=== PATIENT | male | born 1950 | race African-American/Black ===

== ENCOUNTER → 2016-05-26 | Outpatient (CLI) | payer MEDICARE, OTHER ==
[2016-05-26 13:00] LABS: ABSOLUTE EOSINOPHILS # (AUTO) 0.1 10^3/uL (0.0-0.6); ABSOLUTE LYMPHOCYTES (AUTO) 2.1 10^3/uL (0.5-4.7); ABSOLUTE MONOCYTES (AUTO) 0.3 10^3/uL (0.1-1.4); ABSOLUTE NEUT (AUTO) 3.6 10^3/uL (1.7-8.2); BASOPHILS % (AUTO) 0.5 % (0-2); EOSINOPHILS % (AUTO) 1.3 % (0-6); HEMOGLOBIN 12.1 g/dL (13.5-17.0); HGB HCT DIFFERENCE -0.7; LYMPHOCYTES % (AUTO) 33.7 % (13-45); MEAN CORPUSCULAR HEMOGLOBIN 26.6 pg (27.0-33.4); MEAN CORPUSCULAR HGB CONC 32.8 g/dL (32.0-36.0); MEAN CORPUSCULAR VOLUME 81 fl (80-97); MONOCYTES % (AUTO) 5.5 % (3-13); RED BLOOD COUNT 4.55 10^6/uL (4.35-5.55); RED CELL DISTRIBUTION WIDTH 15.6 % (11.5-14.0); WHITE BLOOD COUNT 6.1 10^3/uL (4.0-10.5)
[2016-05-26 13:11] LABS: ALANINE AMINOTRANSFERASE 36 U/L (21-72); ALBUMIN 4.1 g/dL (3.5-5.0); ALKALINE PHOSPHATASE 82 U/L (38-126); ANION GAP 14 (5-19); ASPARTATE AMINO TRANSFERASE 26 U/L (17-59); BILIRUBIN,DIRECT 0.3 mg/dL (0.0-0.4); BILIRUBIN,TOTAL 0.5 mg/dL (0.2-1.3); BLOOD UREA NITROGEN 19 mg/dL (7-20); CARBON DIOXIDE 24 mmol/L (22-30); CHLORIDE 109 mmol/L (98-107); CHOLESTEROL 149.61 mg/dL (0-200); CREATININE RESULT 1.54 mg/dL (0.52-1.25); Direct HDL 47 mg/dL (>40); GLUCOSE 92 mg/dL (75-110); POTASSIUM 3.7 mmol/L (3.6-5.0); TRIGLYCERIDES 78 mg/dL (<150)
[2016-05-26 13:22] LABS: DIRECT LDL 69 mg/dL (<100)
== END ==
LOC: OD 11:19
PROVIDERS: ATTEND Internal Medicine
DX: E11.9 Type 2 diabetes mellitus without complications (principal); I12.9 Hypertensive chronic kidney disease with stage 1 through stage 4 chronic kidney disease, or unspecified chronic kidney disease; N18.9 Chronic kidney disease, unspecified; R35.1 Nocturia
CPT/HCPCS: 36415; 80053; 80061; 82043; 83036; 84153; 84443; 85025

== ENCOUNTER → 2016-06-11 | Outpatient (CLI) | payer MEDICARE, OTHER ==
[2016-06-11 09:57] LABS: HEMATOCRIT 37.2 % (37.9-51.0); HEMOGLOBIN 12.1 g/dL (13.5-17.0); HGB HCT DIFFERENCE -0.9; MEAN CORPUSCULAR HEMOGLOBIN 26.6 pg (27.0-33.4); MEAN CORPUSCULAR HGB CONC 32.5 g/dL (32.0-36.0); MEAN CORPUSCULAR VOLUME 82 fl (80-97); RED BLOOD COUNT 4.55 10^6/uL (4.35-5.55); RED CELL DISTRIBUTION WIDTH 16.2 % (11.5-14.0); WHITE BLOOD COUNT 5.7 10^3/uL (4.0-10.5)
[2016-06-11 10:08] LABS: APPEARANCE,URINE CLEAR; BILIRUBIN,URINE NEGATIVE (NEGATIVE); GLUCOSE, URINE NEGATIVE (NEGATIVE); KETONES,URINE NEGATIVE (NEGATIVE); LEUKOCYTE ESTERASE,URINE NEGATIVE (NEGATIVE); NITRITE,URINE NEGATIVE (NEGATIVE); PROTEIN,URINE 100 mg/dL (NEGATIVE); URINE SPECIFIC GRAVITY 1.013; UROBILINOGEN,URINE NEGATIVE mg/dL (<2.0)
[2016-06-11 10:23] LABS: ANION GAP 13 (5-19); BLOOD UREA NITROGEN 20 mg/dL (7-20); CALCIUM 9.3 mg/dL (8.4-10.2); CARBON DIOXIDE 23 mmol/L (22-30); CHLORIDE 109 mmol/L (98-107); CREATININE RESULT 1.48 mg/dL (0.52-1.25); GLUCOSE 107 mg/dL (75-110); POTASSIUM 3.9 mmol/L (3.6-5.0); SODIUM 145.4 mmol/L (137-145)
[2016-06-12 13:39] LABS: CREATININE URINE 142.8 mg/dL (Not Estab.)
== END ==
LOC: OD 09:02
PROVIDERS: ATTEND Internal Medicine Nephrology
DX: I12.9 Hypertensive chronic kidney disease with stage 1 through stage 4 chronic kidney disease, or unspecified chronic kidney disease (principal); N18.3 Chronic kidney disease, stage 3 (moderate); D64.9 Anemia, unspecified
CPT/HCPCS: 36415; 80048; 81001; 82570; 84156; 85027

== ENCOUNTER → 2016-08-11 | Outpatient (CLI) | payer MEDICARE, OTHER ==
[2016-08-12 09:27] LABS: PROSTATE SPECIFIC ANTIGEN 8.8 ng/mL (0.0-4.0); PSA FREE 1.06 ng/mL
== END ==
LOC: OD 09:45
PROVIDERS: ATTEND Urology
DX: R97.20 Elevated prostate specific antigen [PSA] (principal)
CPT/HCPCS: 36415; 84154

== ENCOUNTER → 2017-01-20 | Outpatient (CLI) | payer MEDICARE, OTHER ==
[2017-01-20 09:29] LABS: HEMATOCRIT 37.9 % (37.9-51.0); HEMOGLOBIN 12.5 g/dL (13.5-17.0); HGB HCT DIFFERENCE -0.4; MEAN CORPUSCULAR HEMOGLOBIN 27.3 pg (27.0-33.4); MEAN CORPUSCULAR HGB CONC 33.1 g/dL (32.0-36.0); MEAN CORPUSCULAR VOLUME 83 fl (80-97); RED BLOOD COUNT 4.58 10^6/uL (4.35-5.55); RED CELL DISTRIBUTION WIDTH 15.5 % (11.5-14.0); WHITE BLOOD COUNT 7.8 10^3/uL (4.0-10.5)
[2017-01-20 09:46] LABS: APPEARANCE,URINE CLEAR; BILIRUBIN,URINE NEGATIVE (NEGATIVE); GLUCOSE, URINE NEGATIVE (NEGATIVE); KETONES,URINE NEGATIVE (NEGATIVE); LEUKOCYTE ESTERASE,URINE NEGATIVE (NEGATIVE); NITRITE,URINE NEGATIVE (NEGATIVE); PROTEIN,URINE 100 mg/dL (NEGATIVE); URINE SPECIFIC GRAVITY 1.014; UROBILINOGEN,URINE NEGATIVE mg/dL (<2.0)
[2017-01-20 09:56] LABS: ANION GAP 16 (5-19); BLOOD UREA NITROGEN 18 mg/dL (7-20); CARBON DIOXIDE 21 mmol/L (22-30); CHLORIDE 109 mmol/L (98-107); CREATININE RESULT 1.48 mg/dL (0.52-1.25); GLUCOSE 93 mg/dL (75-110); POTASSIUM 4.3 mmol/L (3.6-5.0); SODIUM 145.8 mmol/L (137-145)
[2017-01-20 10:46] LABS: URINE PROTEIN 81.1 mg/dL (<12)
[2017-01-20 11:00] LABS: URINE CREATININE 187.3 mg/dL (22-328)
== END ==
LOC: OD 08:12
PROVIDERS: ATTEND Internal Medicine Nephrology
DX: E11.22 Type 2 diabetes mellitus with diabetic chronic kidney disease (principal); N18.3 Chronic kidney disease, stage 3 (moderate); R80.9 Proteinuria, unspecified; D64.9 Anemia, unspecified
CPT/HCPCS: 36415; 80048; 81001; 82570; 84156; 85027

== ENCOUNTER → 2017-05-08 | Outpatient (CLI) | payer MEDICARE, OTHER ==
[2017-05-09 12:32] LABS: PROSTATE SPECIFIC ANTIGEN 14.3 ng/mL (0.0-4.0); PSA % FREE 17.8 % (.); PSA FREE 2.55 ng/mL
== END ==
LOC: OD 08:40
PROVIDERS: ATTEND Urology
DX: R97.20 Elevated prostate specific antigen [PSA] (principal)
CPT/HCPCS: 36415; 84154

== ENCOUNTER → 2017-07-21 | Outpatient (CLI) | payer MEDICARE, OTHER ==
[2017-07-21 10:04] LABS: HEMATOCRIT 37.3 % (37.9-51.0); MEAN CORPUSCULAR HEMOGLOBIN 26.8 pg (27.0-33.4); MEAN CORPUSCULAR HGB CONC 32.3 g/dL (32.0-36.0); MEAN CORPUSCULAR VOLUME 83 fl (80-97); PLATELET COUNT 253 10^3/uL (150-450); RED BLOOD COUNT 4.49 10^6/uL (4.35-5.55); RED CELL DISTRIBUTION WIDTH 15.5 % (11.5-14.0); WHITE BLOOD COUNT 6.2 10^3/uL (4.0-10.5)
[2017-07-21 10:16] LABS: APPEARANCE,URINE CLEAR; BILIRUBIN,URINE NEGATIVE (NEGATIVE); COLOR,URINE YELLOW; GLUCOSE, URINE NEGATIVE (NEGATIVE); KETONES,URINE NEGATIVE (NEGATIVE); LEUKOCYTE ESTERASE,URINE TRACE (NEGATIVE); NITRITE,URINE NEGATIVE (NEGATIVE); PROTEIN,URINE 30 mg/dL (NEGATIVE); URINE SPECIFIC GRAVITY 1.015
[2017-07-21 10:28] LABS: UR PRO/CREAT RATIO RESULT 0.2 mg/mg (0.0-0.2); URINE CREATININE 272.4 mg/dL (22-328); URINE PROTEIN 48.1 mg/dL (<12)
[2017-07-21 10:43] LABS: ANION GAP 13 (5-19); BLOOD UREA NITROGEN 20 mg/dL (7-20); CALCIUM 9.3 mg/dL (8.4-10.2); CARBON DIOXIDE 26 mmol/L (22-30); CHLORIDE 108 mmol/L (98-107); GLUCOSE 116 mg/dL (75-110); SODIUM 146.6 mmol/L (137-145)
== END ==
LOC: OD 09:06
PROVIDERS: ATTEND Internal Medicine Nephrology
DX: E11.22 Type 2 diabetes mellitus with diabetic chronic kidney disease (principal); I12.9 Hypertensive chronic kidney disease with stage 1 through stage 4 chronic kidney disease, or unspecified chronic kidney disease; N18.3 Chronic kidney disease, stage 3 (moderate); D64.9 Anemia, unspecified; R80.9 Proteinuria, unspecified
CPT/HCPCS: 36415; 80048; 81001; 82570; 84156; 85027

== ENCOUNTER → 2017-08-07 | Outpatient (CLI) | payer MEDICARE, OTHER ==
[2017-08-08 09:29] LABS: PROSTATE SPECIFIC ANTIGEN 10.1 ng/mL (0.0-4.0); PSA % FREE 9.3 % (.); PSA FREE 0.94 ng/mL
== END ==
LOC: OD 10:29
PROVIDERS: ATTEND Urology
DX: R97.20 Elevated prostate specific antigen [PSA] (principal)
CPT/HCPCS: 36415; 84154

== ENCOUNTER → 2017-12-18 | Outpatient (CLI) | payer MEDICARE, OTHER ==
[2017-12-18 10:59] LABS: ABSOLUTE BASOPHILS # (AUTO) 0.1 10^3/uL (0.0-0.2); ABSOLUTE EOSINOPHILS # (AUTO) 0.1 10^3/uL (0.0-0.6); ABSOLUTE LYMPHOCYTES (AUTO) 2.1 10^3/uL (0.5-4.7); ABSOLUTE MONOCYTES (AUTO) 0.4 10^3/uL (0.1-1.4); ABSOLUTE NEUT (AUTO) 4.4 10^3/uL (1.7-8.2); BASOPHILS % (AUTO) 0.7 % (0-2); EOSINOPHILS % (AUTO) 1.2 % (0-6); HEMATOCRIT 35.5 % (37.9-51.0); HEMOGLOBIN 11.7 g/dL (13.5-17.0); LYMPHOCYTES % (AUTO) 29.7 % (13-45); MEAN CORPUSCULAR HEMOGLOBIN 27.5 pg (27.0-33.4); MEAN CORPUSCULAR HGB CONC 32.9 g/dL (32.0-36.0); MEAN CORPUSCULAR VOLUME 84 fl (80-97); MONOCYTES % (AUTO) 5.5 % (3-13); PLATELET COUNT 223 10^3/uL (150-450); RED BLOOD COUNT 4.24 10^6/uL (4.35-5.55); RED CELL DISTRIBUTION WIDTH 15.3 % (11.5-14.0); SEGMENTED NEUTROPHILS % (AUTO) 62.9 % (42-78); TOTAL CELLS COUNTED % (AUTO) 100 %
[2017-12-18 11:22] LABS: ALANINE AMINOTRANSFERASE 43 U/L (21-72); ALBUMIN 4.2 g/dL (3.5-5.0); ALKALINE PHOSPHATASE 79 U/L (38-126); ANION GAP 11 (5-19); ASPARTATE AMINO TRANSFERASE 28 U/L (17-59); BILIRUBIN,DIRECT 0.2 mg/dL (0.0-0.4); BILIRUBIN,TOTAL 0.4 mg/dL (0.2-1.3); BLOOD UREA NITROGEN 21 mg/dL (7-20); CALCIUM 9.5 mg/dL (8.4-10.2); CARBON DIOXIDE 22 mmol/L (22-30); CHLORIDE 111 mmol/L (98-107); CHOLESTEROL 141.03 mg/dL (0-200); GLUCOSE 93 mg/dL (75-110); POTASSIUM 4.3 mmol/L (3.6-5.0); SODIUM 143.5 mmol/L (137-145); TOTAL PROTEIN 7.4 g/dL (6.3-8.2); TRIGLYCERIDES 109 mg/dL (<150)
[2017-12-18 11:33] LABS: DIRECT LDL 61 mg/dL (<100)
== END ==
LOC: OD 10:15
PROVIDERS: ATTEND Internal Medicine
DX: I12.9 Hypertensive chronic kidney disease with stage 1 through stage 4 chronic kidney disease, or unspecified chronic kidney disease (principal); N18.3 Chronic kidney disease, stage 3 (moderate); E78.5 Hyperlipidemia, unspecified; I63.9 Cerebral infarction, unspecified; R35.1 Nocturia
CPT/HCPCS: 36415; 80053; 80061; 84153; 84443; 85025

== ENCOUNTER → 2018-07-20 | Outpatient (CLI) | payer MEDICARE, OTHER ==
[2018-07-20 09:49] LABS: ABSOLUTE EOSINOPHILS # (AUTO) 0.1 10^3/uL (0.0-0.6); ABSOLUTE LYMPHOCYTES (AUTO) 1.5 10^3/uL (0.5-4.7); ABSOLUTE MONOCYTES (AUTO) 0.3 10^3/uL (0.1-1.4); ABSOLUTE NEUT (AUTO) 3.7 10^3/uL (1.7-8.2); BASOPHILS % (AUTO) 0.6 % (0-2); EOSINOPHILS % (AUTO) 1.7 % (0-6); HEMATOCRIT 35.9 % (37.9-51.0); HEMOGLOBIN 11.6 g/dL (13.5-17.0); LYMPHOCYTES % (AUTO) 26.4 % (13-45); MEAN CORPUSCULAR HEMOGLOBIN 26.6 pg (27.0-33.4); MEAN CORPUSCULAR HGB CONC 32.3 g/dL (32.0-36.0); MEAN CORPUSCULAR VOLUME 82 fl (80-97); MONOCYTES % (AUTO) 5.5 % (3-13); PLATELET COUNT 232 10^3/uL (150-450); RED BLOOD COUNT 4.36 10^6/uL (4.35-5.55); RED CELL DISTRIBUTION WIDTH 15.9 % (11.5-14.0); SEGMENTED NEUTROPHILS % (AUTO) 65.8 % (42-78); TOTAL CELLS COUNTED % (AUTO) 100 %; WHITE BLOOD COUNT 5.6 10^3/uL (4.0-10.5)
[2018-07-20 10:13] LABS: ALANINE AMINOTRANSFERASE 36 U/L (21-72); ALKALINE PHOSPHATASE 83 U/L (38-126); ANION GAP 9 (5-19); ASPARTATE AMINO TRANSFERASE 29 U/L (17-59); BILIRUBIN,DIRECT 0.3 mg/dL (0.0-0.4); BILIRUBIN,TOTAL 0.4 mg/dL (0.2-1.3); BLOOD UREA NITROGEN 16 mg/dL (7-20); CALCIUM 9.2 mg/dL (8.4-10.2); CARBON DIOXIDE 26 mmol/L (22-30); CHLORIDE 109 mmol/L (98-107); CHOLESTEROL 131.59 mg/dL (0-200); GLUCOSE 104 mg/dL (75-110); POTASSIUM 3.9 mmol/L (3.6-5.0); SODIUM 143.6 mmol/L (137-145); TRIGLYCERIDES 106 mg/dL (<150)
[2018-07-20 10:24] LABS: DIRECT LDL 70 mg/dL (<100)
[2018-07-21 12:38] LABS: CREATININE URINE 200.2 mg/dL (Not Estab.); MICROALBUMIN URINE 286.3 ug/mL (Not Estab.)
== END ==
LOC: OD 09:18
PROVIDERS: ATTEND Internal Medicine
DX: E78.5 Hyperlipidemia, unspecified (principal); N18.3 Chronic kidney disease, stage 3 (moderate); I12.9 Hypertensive chronic kidney disease with stage 1 through stage 4 chronic kidney disease, or unspecified chronic kidney disease; E11.22 Type 2 diabetes mellitus with diabetic chronic kidney disease
CPT/HCPCS: 36415; 80053; 80061; 82043; 82570; 83036; 84443; 85025

== ENCOUNTER → 2018-07-30 | Outpatient (CLI) | payer MEDICARE, OTHER ==
[2018-07-30 12:31] LABS: HEMATOCRIT 34.6 % (37.9-51.0); HEMOGLOBIN 11.1 g/dL (13.5-17.0); MEAN CORPUSCULAR HEMOGLOBIN 26.4 pg (27.0-33.4); MEAN CORPUSCULAR HGB CONC 32.2 g/dL (32.0-36.0); MEAN CORPUSCULAR VOLUME 82 fl (80-97); PLATELET COUNT 218 10^3/uL (150-450); RED BLOOD COUNT 4.22 10^6/uL (4.35-5.55); RED CELL DISTRIBUTION WIDTH 15.3 % (11.5-14.0); WHITE BLOOD COUNT 6.1 10^3/uL (4.0-10.5)
[2018-07-30 12:37] LABS: APPEARANCE,URINE SLIGHTLY-CLOUDY; BILIRUBIN,URINE NEGATIVE (NEGATIVE); GLUCOSE, URINE NEGATIVE (NEGATIVE); KETONES,URINE TRACE mg/dL (NEGATIVE); LEUKOCYTE ESTERASE,URINE TRACE (NEGATIVE); NITRITE,URINE NEGATIVE (NEGATIVE); PROTEIN,URINE 100 mg/dL (NEGATIVE); URINE SPECIFIC GRAVITY 1.021; UROBILINOGEN,URINE NEGATIVE mg/dL (<2.0)
[2018-07-30 12:41] LABS: COLOR,URINE YELLOW
[2018-07-30 12:54] LABS: ANION GAP 9 (5-19); BLOOD UREA NITROGEN 21 mg/dL (7-20); CARBON DIOXIDE 23 mmol/L (22-30); CHLORIDE 112 mmol/L (98-107); GLUCOSE 99 mg/dL (75-110); PHOSPHORUS 3.8 mg/dL (2.5-4.5); POTASSIUM 3.8 mmol/L (3.6-5.0)
== END ==
LOC: OD 11:56
PROVIDERS: ATTEND Internal Medicine Nephrology
DX: I12.9 Hypertensive chronic kidney disease with stage 1 through stage 4 chronic kidney disease, or unspecified chronic kidney disease (principal); N18.3 Chronic kidney disease, stage 3 (moderate); E11.22 Type 2 diabetes mellitus with diabetic chronic kidney disease; D64.9 Anemia, unspecified
CPT/HCPCS: 36415; 80048; 81001; 83970; 84100; 85027

== ENCOUNTER → 2018-10-25 | Outpatient (CLI) | payer MEDICARE, OTHER ==
[2018-10-25 09:50] LABS: ABSOLUTE BASOPHILS # (AUTO) 0.1 10^3/uL (0.0-0.2); ABSOLUTE EOSINOPHILS # (AUTO) 0.1 10^3/uL (0.0-0.6); ABSOLUTE LYMPHOCYTES (AUTO) 1.4 10^3/uL (0.5-4.7); ABSOLUTE MONOCYTES (AUTO) 0.4 10^3/uL (0.1-1.4); ABSOLUTE NEUT (AUTO) 4.4 10^3/uL (1.7-8.2); BASOPHILS % (AUTO) 1.2 % (0-2); EOSINOPHILS % (AUTO) 1.3 % (0-6); HEMATOCRIT 35.7 % (37.9-51.0); HEMOGLOBIN 11.7 g/dL (13.5-17.0); LYMPHOCYTES % (AUTO) 21.8 % (13-45); MEAN CORPUSCULAR HGB CONC 32.9 g/dL (32.0-36.0); MEAN CORPUSCULAR VOLUME 82 fl (80-97); MONOCYTES % (AUTO) 6.6 % (3-13); PLATELET COUNT 202 10^3/uL (150-450); RED BLOOD COUNT 4.34 10^6/uL (4.35-5.55); RED CELL DISTRIBUTION WIDTH 15.3 % (11.5-14.0); SEGMENTED NEUTROPHILS % (AUTO) 69.1 % (42-78); TOTAL CELLS COUNTED % (AUTO) 100 %; WHITE BLOOD COUNT 6.4 10^3/uL (4.0-10.5)
[2018-10-25 10:11] LABS: ALBUMIN 4.1 g/dL (3.5-5.0); ALKALINE PHOSPHATASE 82 U/L (38-126); ANION GAP 10 (5-19); ASPARTATE AMINO TRANSFERASE 29 U/L (17-59); BILIRUBIN,DIRECT 0.3 mg/dL (0.0-0.4); BILIRUBIN,TOTAL 0.5 mg/dL (0.2-1.3); BLOOD UREA NITROGEN 24 mg/dL (7-20); CALCIUM 9.2 mg/dL (8.4-10.2); CARBON DIOXIDE 24 mmol/L (22-30); CHLORIDE 107 mmol/L (98-107); CHOLESTEROL 113.79 mg/dL (0-200); GLUCOSE 105 mg/dL (75-110); POTASSIUM 4.3 mmol/L (3.6-5.0); TOTAL PROTEIN 7.2 g/dL (6.3-8.2); TRIGLYCERIDES 103 mg/dL (<150)
[2018-10-25 10:23] LABS: DIRECT LDL 62 mg/dL (<100)
[2018-10-26 13:37] LABS: CREATININE URINE 137.6 mg/dL (Not Estab.); MICROALBUMIN URINE 150.9 ug/mL (Not Estab.)
== END ==
LOC: OD 08:41
PROVIDERS: ATTEND Internal Medicine
DX: I12.9 Hypertensive chronic kidney disease with stage 1 through stage 4 chronic kidney disease, or unspecified chronic kidney disease (principal); N18.3 Chronic kidney disease, stage 3 (moderate); E11.22 Type 2 diabetes mellitus with diabetic chronic kidney disease; E78.5 Hyperlipidemia, unspecified
CPT/HCPCS: 36415; 80053; 80061; 82043; 82570; 83036; 84443; 85025

== ENCOUNTER → 2019-01-20 | Outpatient (CLI) | payer MEDICARE, OTHER ==
[2019-01-20 11:01] LABS: HEMATOCRIT 36.1 % (37.9-51.0); HEMOGLOBIN 11.9 g/dL (13.5-17.0); MEAN CORPUSCULAR HEMOGLOBIN 27.1 pg (27.0-33.4); MEAN CORPUSCULAR HGB CONC 32.9 g/dL (32.0-36.0); MEAN CORPUSCULAR VOLUME 83 fl (80-97); PLATELET COUNT 219 10^3/uL (150-450); RED BLOOD COUNT 4.37 10^6/uL (4.35-5.55); WHITE BLOOD COUNT 5.7 10^3/uL (4.0-10.5)
[2019-01-20 11:21] LABS: ANION GAP 10 (5-19); BLOOD UREA NITROGEN 27 mg/dL (7-20); CALCIUM 8.9 mg/dL (8.4-10.2); CARBON DIOXIDE 25 mmol/L (22-30); CHLORIDE 110 mmol/L (98-107); GLUCOSE 101 mg/dL (75-110); PHOSPHORUS 4.1 mg/dL (2.5-4.5); POTASSIUM 4.1 mmol/L (3.6-5.0)
[2019-01-20 11:52] LABS: APPEARANCE,URINE SLIGHTLY-CLOUDY; BILIRUBIN,URINE NEGATIVE (NEGATIVE); COLOR,URINE YELLOW; GLUCOSE, URINE NEGATIVE (NEGATIVE); KETONES,URINE NEGATIVE (NEGATIVE); LEUKOCYTE ESTERASE,URINE NEGATIVE (NEGATIVE); NITRITE,URINE NEGATIVE (NEGATIVE); PROTEIN,URINE 100 mg/dL (NEGATIVE); URINE SPECIFIC GRAVITY 1.018
== END ==
LOC: OD 10:38
PROVIDERS: ATTEND Internal Medicine Nephrology
DX: I12.9 Hypertensive chronic kidney disease with stage 1 through stage 4 chronic kidney disease, or unspecified chronic kidney disease (principal); N18.3 Chronic kidney disease, stage 3 (moderate); E11.22 Type 2 diabetes mellitus with diabetic chronic kidney disease; D64.9 Anemia, unspecified
CPT/HCPCS: 36415; 80048; 81001; 83970; 84100; 85027

== ENCOUNTER 2020-01-01 01:57 | Inpatient (IN) | payer MEDICARE ==
[2020-01-01 02:21] LABS: ABSOLUTE LYMPHOCYTES (AUTO) 1.5 10^3/uL (0.5-4.7); ABSOLUTE MONOCYTES (AUTO) 0.7 10^3/uL (0.1-1.4); ABSOLUTE NEUT (AUTO) 9.8 10^3/uL (1.7-8.2); BASOPHILS % (AUTO) 0.2 % (0-2); HEMATOCRIT 35.6 % (37.9-51.0); HEMOGLOBIN 11.9 g/dL (13.5-17.0); LYMPHOCYTES % (AUTO) 12.2 % (13-45); MEAN CORPUSCULAR HGB CONC 33.3 g/dL (32.0-36.0); MEAN CORPUSCULAR VOLUME 81 fl (80-97); MONOCYTES % (AUTO) 5.7 % (3-13); PLATELET COUNT 194 10^3/uL (150-450); RED BLOOD COUNT 4.39 10^6/uL (4.35-5.55); RED CELL DISTRIBUTION WIDTH 15.2 % (11.5-14.0); SEGMENTED NEUTROPHILS % (AUTO) 81.9 % (42-78); TOTAL CELLS COUNTED % (AUTO) 100 %; WHITE BLOOD COUNT 11.9 10^3/uL (4.0-10.5)
[2020-01-01 02:34] LABS: INTERNATIONAL RATION (INR) 1.06; PARTIAL THROMBOPLASTIN TIME 33.1 SEC (23.5-35.8)
[2020-01-01 02:42] LABS: ALBUMIN 4.1 g/dL (3.5-5.0); ALKALINE PHOSPHATASE 83 U/L (38-126); ANION GAP 12 (5-19); ASPARTATE AMINO TRANSFERASE 37 U/L (17-59); BILIRUBIN,DIRECT 0.4 mg/dL (0.0-0.4); BILIRUBIN,TOTAL 0.7 mg/dL (0.2-1.3); BLOOD UREA NITROGEN 30 mg/dL (7-20); CALCIUM 8.7 mg/dL (8.4-10.2); CARBON DIOXIDE 20 mmol/L (22-30); CHLORIDE 106 mmol/L (98-107); CREATINE KINASE 488 U/L (55-170); GLUCOSE 140 mg/dL (75-110); PHOSPHORUS 2.6 mg/dL (2.5-4.5); POTASSIUM 3.8 mmol/L (3.6-5.0); TOTAL PROTEIN 7.1 g/dL (6.3-8.2)
--- NOTE | 2020-01-01 03:24 | RADIOLOGY REPORT (SQ) ---
CT of the head: 01/01/2020 2:20 AM CDT HISTORY: 69-year-old patient with right-sided weakness. COMPARISON: None available TECHNIQUE: Multiple axial contiguous images were obtained through the head without intravenous contrast administered. This exam was performed according to our departmental dose-optimization program, which includes automated exposure control, adjustment of the mA and/or KV according to the patient's size and/or use of iterative reconstruction technique. FINDINGS: The ventricles and cerebral sulci demonstrate mild prominence, consistent with cerebral atrophy. There are mild periventricular hypodensities, suggestive of periventricular white matter changes. The rolle-white matter differentiation is within normal limits. Both orbits appear unremarkable. The mastoid air cells appear clear. There is mild mucoperiosteal thickening of the ethmoid sinuses. The calvarium is intact. No extra-axial fluid collection is seen. No midline shift or mass effect is apparent. There are no findings to suggest acute intracranial hemorrhage. There is encephalomalacia seen at the left MCA territory. There is compensatory ex vacuo dilatation of the left lateral ventricle. There are changes of prior left craniotomy noted. IMPRESSION: 1. No acute intracranial hemorrhage is seen. 2. Mild cerebral atrophy and periventricular white matter changes are seen.
--- NOTE | 2020-01-01 03:47 | RADIOLOGY REPORT (SQ) ---
CHEST X-RAY 1 VIEW on 01/01/2020 at 2:53 AM CLINICAL INDICATION: Worsening right-sided weakness COMPARISON: None FINDINGS: Borderline cardiomegaly is noted. Couple of old right rib fractures are noted. The lungs are clear. Hilar and mediastinal contours are within normal limits. Pulmonary vascularity is within normal limits. IMPRESSION: No acute disease.
[2020-01-01 04:21] LABS: APPEARANCE,URINE SLIGHTLY-CLOUDY; BILIRUBIN,URINE NEGATIVE (NEGATIVE); COLOR,URINE YELLOW; GLUCOSE, URINE NEGATIVE (NEGATIVE); KETONES,URINE NEGATIVE (NEGATIVE); PROTEIN,URINE >=500 mg/dL (NEGATIVE); URINE SPECIFIC GRAVITY 1.018; UROBILINOGEN,URINE NEGATIVE mg/dL (<2.0)
--- NOTE | 2020-01-01 04:42 | ER Document Report ---
ED General - General Chief Complaint: General Weakness Stated Complaint: VOMITING/WEAKNESS Notes: 69-year-old male history of hypertension hyperlipidemia diabetes stroke with residual right-sided weakness cerebral AVM craniotomy presents with approximately 1 day of fever, vomiting, nonbloody nonblack diarrhea, and decreased level of alertness and interaction with , possibly worsened right- sided weakness. Patient normally able to function with deficits at home but for the past day has been generally lethargic and weak and patient's noticed that right-sided weakness seemed more exaggerated than usual. Patient and deny any sick contacts, recent illnesses, travel, headache, neck pain or stiffness, cough, shortness of breath, chest pain, syncope, trauma TRAVEL OUTSIDE OF THE [place] IN LAST 30 DAYS: No - Related Data Allergies/Adverse Reactions: No Known Allergies Allergy (Unverified 01/01/20 02:46) Past Medical History - General Information source: Patient, Relative, [facility] Records - Social History Smoking Status: Unknown if Ever Smoked Family History: Reviewed & Not Pertinent - Past Medical History Cardiac Medical History: Reports: Hx Hypercholesterolemia, Hx Hypertension Neurological Medical History: Reports: Hx Cerebrovascular Accident Endocrine Medical History: Reports: Hx Diabetes Mellitus Type 2 Review of Systems - Review of Systems Notes: REVIEW OF SYSTEMS: CONSTITUTIONAL : + fever, chills, or sweats. EENT: Denies recent cold/sinus symptoms, denies throat pain CARDIOVASCULAR: Denies chest pain, ZACK RESPIRATORY: Denies cough, denies shortness of breath. GASTROINTESTINAL: Denies abdominal pain, +nausea/vomiting. GENITOURINARY: Denies difficulty urinating, painful urination. MUSCULOSKELETAL: Denies neck pain, back pain. SKIN: Denies rash or skin lesions. HEMATOLOGIC : Denies easy bruising or bleeding. LYMPHATIC: Denies swollen, enlarged glands. NEUROLOGICAL: Denies headache, denies vertigo PSYCHIATRIC: Denies anxiety or stress or depression. Physical Exam - Vital signs Vitals: Temp Pulse Resp BP Pulse Ox 103.2 F H 83 28 H 183/94 H 98 01/01/20 01:58 01/01/20 01:58 01/01/20 01:58 01/01/20 01:58 01/01/20 01:58 - Notes Notes: PHYSICAL EXAMINATION: GENERAL: Well-appearing, well-nourished and in no acute distress. HEAD: Atraumatic, normocephalic, healed craniotomy incision scars EYES: Pupils equal round and appropriate constriction, sclera anicteric, conjunctiva are normal. ENT: nares patent, mildly dry mucous membranes. NECK: Normal range of motion, supple without lymphadenopathy LUNGS: Breath sounds clear to auscultation bilaterally and equal. No wheezes rales or rhonchi. Normal respiratory rate and effort HEART: Regular rate and rhythm without murmurs ABDOMEN: Soft, nontender, no guarding, no masses, no CVAT EXTREMITIES: Normal range of motion, no pitting or edema. No cyanosis. NEUROLOGICAL: Awake, alert, conversing appropriately, moves all extremities spontaneously, oriented to month, location, name. Cranial nerves II through XII intact bilaterally, 4 out of 5 strength in right upper and lower extremities, 5/5 strength of left upper and lower extremities, normal [id number] bilaterally PSYCH: Normal mood, normal affect. SKIN: Warm, Dry, normal turgor Course - Re-evaluation Re-evalutation: 01/01/20 05:17 Patient with 1 day of lethargy, possibly worsened right-sided weakness, vomiting diarrhea and fever. Patient with initial 405 strength in the right extremities but this resolved at time of my reevaluation. Currently patient has 5 out of 5 strength in all extremities. No acute changes on CT head and given no neuro findings and patient outside of TPA window and low suspicion for stroke, was unable to order CTA head and neck because of GFR but now without clinically indicated. Symptoms likely secondary to generalized weakness or infection which exaggerates existing underlying neuro deficits. Now that fever is controlled patient's symptoms have greatly improved. Patient able to reliably give me history and able to freely move neck in all directions without any discomfort denies any headache, no current indication to do lumbar puncture. Concern for COVID-19 infection, rule out UTI, obtain lactate which is normal. Patient accepted to observation by Dr. Heart. Patient repeatedly recorded as being mildly tachypneic but respiratory rate at that time a repeat examinations, no rmal lung exam, no respiratory complaints, and normal chest x-ray, appears to be equipment error as patient breathes with low excursion. Pt will require trending of troponin in observation as initial was mildly positive, but low suspicion for ACS and the low DC threshold and no DC on EKG, T wave abnormalities in V5 V6 unknown if new as no prior EKGs is available. 01/01/20 05:23 With patient's permission I updated as to patient's status. - Vital Signs Vital signs: Temp Pulse Resp BP Pulse Ox 99.2 F 74 26 H 146/63 H 94 01/02/20 20:12 01/02/20 20:12 01/02/20 20:12 01/02/20 20:12 01/02/20 20:12 - Laboratory Result Diagrams: 01/02/20 06:50 01/01/20 06:02 Laboratory results interpreted by me: 01/01/20 01/01/20 01/01/20 01:53 01:53 02:03 WBC 11.9 H Hgb 11.9 L Hct 35.6 L RDW 15.2 H Lymph % (Auto) 12.2 L Absolute Neuts (auto) 9.8 H Seg Neutrophils % 81.9 H D-Dimer VBG pH VBG pCO2 Carbon Dioxide 20 L BUN 30 H Creatinine 2.09 H Est GFR ( Amer) 38 L Est GFR (MDRD) Non-Af 32 L Glucose 140 H POC Glucose 130 H Magnesium 1.3 L Creatine Kinase 488 H C-Reactive Protein Urine Protein Urine Blood 01/01/20 01/01/20 01/01/20 04:01 04:18 06:02 WBC Hgb Hct RDW Lymph % (Auto) Absolute Neuts (auto) Seg Neutrophils % D-Dimer VBG pH 7.44 H VBG pCO2 32.5 L Carbon Dioxide 19 L BUN 31 H Creatinine 1.98 H Est GFR ( Amer) 41 L Est GFR (MDRD) Non-Af 34 L Glucose 138 H POC Glucose Magnesium Creatine Kinase C-Reactive Protein Urine Protein >=500 H Urine Blood SMALL H 01/01/20 01/01/20 01/01/20 11:03 15:31 18:25 WBC Hgb Hct RDW Lymph % (Auto) Absolute Neuts (auto) Seg Neutrophils % D-Dimer 1.08 H VBG pH VBG pCO2 Carbon Dioxide BUN Creatinine Est GFR ( Amer) Est GFR (MDRD) Non-Af Glucose POC Glucose 152 H 158 H Magnesium Creatine Kinase C-Reactive Protein Urine Protein Urine Blood 01/01/20 01/01/20 01/02/20 18:25 21:10 06:50 WBC Hgb 11.8 L Hct 35.5 L RDW 15.4 H Lymph % (Auto) Absolute Neuts (auto) Seg Neutrophils % 78.8 H D-Dimer VBG pH VBG pCO2 Carbon Dioxide BUN Creatinine Est GFR ( Amer) Est GFR (MDRD) Non-Af Glucose POC Glucose 123 H Magnesium Creatine Kinase C-Reactive Protein 14.9 H Urine Protein Urine Blood 01/02/20 01/02/20 07:54 10:58 WBC Hgb Hct RDW Lymph % (Auto) Absolute Neuts (auto) Seg Neutrophils % D-Dimer VBG pH VBG pCO2 Carbon Dioxide BUN Creatinine Est GFR ( Amer) Est GFR (MDRD) Non-Af Glucose POC Glucose 128 H 120 H Magnesium Creatine Kinase C-Reactive Protein Urine Protein Urine Blood - EKG Interpretation by Me Additional EKG results interpreted by me: 01/01/20 05:23 Heart rate 83, sinus rhythm, no significant ST elevations or depressions, T wave abnormalities in aVL V5 V6, no prior EKGs available, QTc 414 Discharge - Discharge Clinical Impression: Viral syndrome Disposition: ADMITTED OBSERVATION Admitting Provider: [facility] Admitted: Telemetry
[2020-01-01 04:43] LABS: VENOUS BLOOD BASE EXCESS -1.9 mmol/L; VENOUS BLOOD HCO3 21.5 mmol/L (20-32); VENOUS BLOOD PCO2 32.5 mmHg (35-63); VENOUS BLOOD PH 7.44 (7.30-7.42)
[2020-01-01] MEDS ORDERED: ONDANSETRON HCL INJ/PF 4 MG/2 ML SDV IV PRN (04:51)
[2020-01-01] MEDS ORDERED: MAGNESIUM SULFATE INJ 8 MEQ/2 ML IV ONE (05:01)
--- NOTE | 2020-01-01 05:49 | PDOC H&P ---
History of Present Illness Admission Date/PCP: 01/01/2020 Lloyd MCCONNELL MD Patient complains of: Altered mental status, generalized weakness, cough History of Present Illness: Patient is oriented x2 and a reliable historian, history is obtained from ER signout and chart review ZACHARY HALL is a 69 year old male with a history of CVA with residual right-sided weakness, diabetes and hyperlipidemia who presents to ER with 2 days duration of altered mentation. His reported that patient was found to be altered than his baseline status, was feeling extremely weak and unable to take care of himself. Patient has been having fever, nausea, vomiting of ingested moderate watery diarrhea. He also has been having dry cough over the past couple of days but on questioning he denies any chest pain or shortness of breath. He has not had any history of head injury, falls, loss of consciousness or abnormal body movement. Past Medical History Cardiac Medical History: Reports: Hyperlipidema, Hypertension Endocrine Medical History: Reports: Diabetes Mellitus Type 2 Social History Smoking Status: Unknown if Ever Smoked - Advance Directive Resuscitation Status: Full Code Family History Parental Family History Reviewed: No - Patient altered and unable to give history Children Family History Reviewed: NA Sibling(s) Family History Reviewed.: NA Medication/Allergy Home Medications: Amlodipine Besylate [Norvasc 10 mg Tablet] 10 mg PO BID 01/01/20 Clonidine HCl 0.3 mg PO TID 01/01/20 Docusate Sodium [Colace 100 mg Capsule] 100 mg PO BID PRN 01/01/20 Ferrous Sulfate [Ferosul] 325 mg PO BID 01/01/20 Finasteride [Proscar] 5 mg PO DAILY 01/01/20 Furosemide [Lasix 20 mg Tablet] 10 mg PO DAILY 01/01/20 Glimepiride 2 mg PO DAILY 01/01/20 Hydralazine HCl 100 mg PO TID 01/01/20 Labetalol HCl [Normodyne 200 mg Tablet] 200 mg PO Q8H 01/01/20 Losartan Potassium 50 mg PO DAILY 01/01/20 Rosuvastatin Calcium 40 mg PO DAILY 01/01/20 Terazosin HCl 5 mg PO QHS 01/01/20 Allergies/Adverse Reactions: No Known Allergies Allergy (Unverified 01/01/20 02:46) Review of Systems ROS unobtainable: Due to mental status Physical Exam Vital Signs: Temp Pulse Resp BP Pulse Ox 101 F H 83 28 H 175/90 H 97 01/01/20 03:45 01/01/20 01:58 01/01/20 03:45 01/01/20 03:45 01/01/20 03:45 Intake & Output 12/30/19 12/31/19 01/01/20 06:59 06:59 06:59 Weight 104.3 kg Additional comments: GENERAL APPEARANCE: In no acute distress and lying comfortably on his bed, oriented x2(place and person) HEENT: Normocephalic and atraumatic. No scleral icterus. PERRLA, EOMs are intact, dry buccal mucosa NECK: Supple. No lymphadenopathy or tenderness. No carotid bruit. No JVD CHEST: Symmetric. Nontender to palpation. LUNGS: Breath sounds are equal and clear bilaterally. No wheezes, rhonchi, or r ales. HEART: Regular rate and rhythm with normal S1 and S2. No murmurs, gallops, or rubs. ABDOMEN: Soft, flat, normoactive bowel sounds, no direct or rebound tenderness, no organomegaly or mass detected, no CVA tenderness EXTREMITIES: No cyanosis, clubbing, or edema. MUSCULOSKELETAL: Has atrophy and contracture in the right forearm and hand likely from disuse atrophy due to stroke PSYCHIATRIC: The patient is awake, alert, and oriented x3. Recent and remote memory is intact. Appropriate mood and affect. SKIN: Warm, dry, and well perfused. No lesions or rashes are noted. NEUROLOGIC: Power is 3/5 in the right upper extremity but 5/5 in all other extremities. Difficult to perform full neurologic exam due to altered mental status Results Laboratory Results: 01/01/20 01:53 01/01/20 01:53 01/01/20 01/01/20 01/01/20 01:53 01:53 01:53 WBC 11.9 H RBC 4.39 Hgb 11.9 L Hct 35.6 L MCV 81 MCH 27.0 MCHC 33.3 RDW 15.2 H Plt Count 194 Seg Neutrophils % 81.9 H VBG pH VBG pCO2 VBG HCO3 VBG Base Excess Sodium 137.5 Potassium 3.8 Chloride 106 Carbon Dioxide 20 L Anion Gap 12 BUN 30 H Creatinine 2.09 H Est GFR ( Amer) 38 L Glucose 140 H Lactic Acid 0.9 Calcium 8.7 Phosphorus 2.6 Magnesium 1.3 L Total Bilirubin 0.7 AST 37 Alkaline Phosphatase 83 Total Protein 7.1 Albumin 4.1 Urine Color Urine Appearance Urine pH Ur Specific [place] Urine Protein Urine Glucose (UA) Urine Ketones Urine Blood Urine RBC (Auto) 01/01/20 01/01/20 04:01 04:18 WBC RBC Hgb Hct MCV MCH MCHC RDW Plt Count Seg Neutrophils % VBG pH 7.44 H VBG pCO2 32.5 L VBG HCO3 21.5 VBG Base Excess -1.9 Sodium Potassium Chloride Carbon Dioxide Anion Gap BUN Creatinine Est GFR ( Amer) Glucose Lactic Acid Calcium Phosphorus Magnesium Total Bilirubin AST Alkaline Phosphatase Total Protein Albumin Urine Color YELLOW Urine Appearance SLIGHTLY-CLOUDY Urine pH 5.0 Ur Specific [place] 1.018 Urine Protein >=500 H Urine Glucose (UA) NEGATIVE Urine Ketones NEGATIVE Urine Blood SMALL H Urine RBC (Auto) 1 01/01/20 01/01/20 01:53 01:53 Creatine Kinase 488 H Troponin I 0.051 Impressions: Chest X-Ray 01/01/20 02:08 IMPRESSION: No acute disease. Head CT 01/01/20 02:08 IMPRESSION: 1. No acute intracranial hemorrhage is seen. 2. Mild cerebral atrophy and periventricular white matter changes are seen. Assessment and Plan - Diagnosis (1) Acute metabolic encephalopathy Is this a current diagnosis for this admission?: Yes Plan: Likely due to acute viral infection and volume depletion from GI loss qSOFA /, SIRS 03/12: Does not meet criteria for sepsis Hydrate with LR Follow-up with blood culture, urine analysis and culture (2) Volume depletion Is this a current diagnosis for this admission?: Yes Plan: Patient has had multiple episodes of diarrhea and vomiting Unable to do orthostatic vitals due to her risk of fall Continue IV hydration (3) Suspected COVID-19 virus infection Is this a current diagnosis for this admission?: Yes Plan: Presents with fever, cough, vomiting and diarrhea Could likely be the cause of his weakness and change in mentation Chest x-ray showed no acute findings Currently saturating well on room air Obtain ferritin, CK, CRP, LDH levels Enhanced airborne isolation Continue symptomatic treatment (4) Diarrhea Is this a current diagnosis for this admission?: Yes Plan: Likely part of viral prodrome Continue adequate hydration (5) Leukocytosis Is this a current diagnosis for this admission?: Yes Plan: Has leukocytosis with left shift Could be due to viral infection Follow-up with blood culture urine analysis and culture Continue to monitor CBC (6) Hypomagnesemia Is this a current diagnosis for this admission?: Yes Plan: Serum magnesium on presentation was 1.3 Repleted with magnesium sulfate (7) Elevated CK Is this a current diagnosis for this admission?: Yes Plan: Serum CK level was 488 on presentation Continue IV hydration and follow CK level (8) Hypertension Is this a current diagnosis for this admission?: Yes Plan: Pressure was elevated 175/90 on presentation Will resume some of his home medication (9) Diabetes Qualifiers: Diabetes mellitus type: type 2 Is this a current diagnosis for this admission?: Yes Plan: We will put him on sliding scale, Accu-Chek and hypoglycemia protocol (10) CKD (chronic kidney disease) stage 3, GFR 30-59 ml/min Qualifiers: Chronic kidney disease stage 3 subtype: stage 3b (GFR 30-44) Qualified Code(s): N18.32 - Chronic kidney disease, stage 3b Is this a current diagnosis for this admission?: Yes Plan: BUN/creatinine are at baseline Avoid nephrotoxic and renally dose medications Continue to monitor renal indicis - Time Time Spent with patient: 35 or more minutes Total Critical Time (Minutes): 40 Medications reviewed and adjusted accordingly: Yes Anticipated Discharge Disposition: Home with Home Health Anticipated Discharge Timeframe: within 48 hours - Inpatient Certification Medical Necessity: Need Close Monitoring Due to Risk of Patient Decompensation, Need For IV Fluids Post Hospital Care: D/C or Transfer Summary
[2020-01-01] MEDS ORDERED: HYDRALAZINE HCL 50 MG TABLET PO PRN (05:51)
[2020-01-01] MEDS ORDERED: MAGNESIUM SULFATE/D5W 1 GM/100 ML RTUPB IV ONE (06:15)
[2020-01-01] MEDS: HEPARIN SOD (PORCINE) 5,000 UNIT/ML 1 ML VIAL SUBCUT SCH ×3 (06:35→21:20)
[2020-01-01] MEDS: ACETAMINOPHEN 325 MG TABLET PO PRN ×4 (06:37→23:21)
[2020-01-01 06:57] LABS: ANION GAP 13 (5-19); BLOOD UREA NITROGEN 31 mg/dL (7-20); CALCIUM 8.4 mg/dL (8.4-10.2); CARBON DIOXIDE 19 mmol/L (22-30); CHLORIDE 106 mmol/L (98-107); GLUCOSE 138 mg/dL (75-110); POTASSIUM 3.7 mmol/L (3.6-5.0)
[2020-01-01] MEDS: RINGERS SOLUTION,LACTATED 1,000 ML IV PRN (07:20)
[2020-01-01 07:31] LABS: C-REACTIVE PROTEIN < 5.0 mg/L (<10.0)
[2020-01-01] MEDS ORDERED: AMLODIPINE BESYLATE 5 MG TABLET PO SCH (10:00)
[2020-01-01] MEDS ORDERED: LOSARTAN POTASSIUM 50 MG TABLET PO SCH (10:00)
[2020-01-01] MEDS: FAMOTIDINE 20 MG TABLET PO SCH ×2 (10:19→21:20)
[2020-01-01] MEDS: ZINC SULFATE 220 MG CAPSULE PO SCH (10:19)
[2020-01-01] MEDS: CHOLECALCIFEROL (D3) 1,000 UNIT (25 MCG) TABLET PO SCH (10:19)
[2020-01-01] MEDS: ASCORBIC ACID 500 MG TABLET PO SCH ×2 (10:20→18:21)
[2020-01-01] MEDS ORDERED: AZITHROMYCIN INJ 500 MG VIAL IV PRN (18:24)
[2020-01-01] MEDS ORDERED: ACETAMINOPHEN 325 MG TABLET PO ONE (18:45)
[2020-01-01 18:46] LABS: INTERNATIONAL RATION (INR) 1.05; PROTHROMBIN TIME 13.9 SEC (11.4-15.4)
[2020-01-01 18:48] LABS: D-DIMER 1.08 ug/mL (0.00-0.50)
[2020-01-01 18:57] LABS: C-REACTIVE PROTEIN 14.9 mg/L (<10.0)
[2020-01-01] MEDS ORDERED: CEFTRIAXONE 1 GM/D5W RTU 1 GM/50 ML RTUPB IV ONE (19:00)
[2020-01-01] MEDS ORDERED: AZITHROMYCIN 500 MG in DEXTROSE 5%-WATER 250 ML IV ONE (19:00)
--- NOTE | 2020-01-01 19:20 | EKG REPORT ---
SEVERITY:- ABNORMAL ECG - SINUS RHYTHM PROBABLE LEFT ATRIAL ABNORMALITY ABNORMAL T, CONSIDER ISCHEMIA, LATERAL LEADS : Confirmed by: Ronny Palacios MD 01-Jan-2020 19:19:30
[2020-01-01] MEDS: DOXAZOSIN MESYLATE 4 MG TABLET PO SCH (21:20)
[2020-01-01] MEDS: LABETALOL HCL 200 MG TABLET PO SCH (21:20)
[2020-01-01] MEDS ORDERED: TERAZOSIN HCL 5 MG PO SCH (22:00)
[2020-01-02] MEDS: LABETALOL HCL 200 MG TABLET PO SCH ×2 (06:11→14:36)
[2020-01-02] MEDS: HEPARIN SOD (PORCINE) 5,000 UNIT/ML 1 ML VIAL SUBCUT SCH ×3 (06:11→21:37)
[2020-01-02 07:20] LABS: ABSOLUTE LYMPHOCYTES (AUTO) 1.3 10^3/uL (0.5-4.7); ABSOLUTE MONOCYTES (AUTO) 0.6 10^3/uL (0.1-1.4); ABSOLUTE NEUT (AUTO) 7.2 10^3/uL (1.7-8.2); BASOPHILS % (AUTO) 0.1 % (0-2); HEMATOCRIT 35.5 % (37.9-51.0); HEMOGLOBIN 11.8 g/dL (13.5-17.0); LYMPHOCYTES % (AUTO) 14.6 % (13-45); MEAN CORPUSCULAR HEMOGLOBIN 27.1 pg (27.0-33.4); MEAN CORPUSCULAR HGB CONC 33.3 g/dL (32.0-36.0); MEAN CORPUSCULAR VOLUME 81 fl (80-97); MONOCYTES % (AUTO) 6.5 % (3-13); PLATELET COUNT 173 10^3/uL (150-450); RED BLOOD COUNT 4.37 10^6/uL (4.35-5.55); RED CELL DISTRIBUTION WIDTH 15.4 % (11.5-14.0); SEGMENTED NEUTROPHILS % (AUTO) 78.8 % (42-78); TOTAL CELLS COUNTED % (AUTO) 100 %; WHITE BLOOD COUNT 9.1 10^3/uL (4.0-10.5)
[2020-01-02] MEDS: ACETAMINOPHEN 325 MG TABLET PO PRN (08:25)
[2020-01-02] MEDS: RINGERS SOLUTION,LACTATED 1,000 ML IV PRN (08:27)
[2020-01-02] MEDS: FAMOTIDINE 20 MG TABLET PO SCH (09:20)
[2020-01-02] MEDS: CHOLECALCIFEROL (D3) 1,000 UNIT (25 MCG) TABLET PO SCH (09:20)
[2020-01-02] MEDS: ZINC SULFATE 220 MG CAPSULE PO SCH (09:20)
[2020-01-02] MEDS: CLONIDINE HCL 0.1 MG TABLET PO SCH ×3 (09:20→17:32)
[2020-01-02] MEDS: ASCORBIC ACID 500 MG TABLET PO SCH (09:20)
[2020-01-02] MEDS: FINASTERIDE 5 MG TABLET PO SCH (09:20)
[2020-01-02] MEDS: FERROUS SULFATE 325 MG TABLET PO SCH ×2 (09:20→17:32)
[2020-01-02] MEDS: HYDRALAZINE HCL 50 MG TABLET PO SCH ×3 (09:30→17:31)
[2020-01-02] MEDS ORDERED: (PENDING PHARMACY ID) (Hydralazine Hcl [Hydralazine Hcl] 100 MG) PO SCH (10:00)
[2020-01-02] MEDS ORDERED: (PENDING PHARMACY ID) (Rosuvastatin Calcium [Rosuvastatin Calcium] 40 MG) PO SCH (10:00)
[2020-01-02] MEDS ORDERED: VANCOMYCIN HCL 0 MG in DEXTROSE 5%-WATER 250 ML IV NR (10:00)
[2020-01-02] MEDS ORDERED: (PENDING PHARMACY ID) (Clonidine Hcl [Clonidine Hcl] 0.3 MG) PO SCH (10:00)
[2020-01-02] MEDS ORDERED: METOPROLOL TARTRATE PF/INJ 5 MG/5 ML SDV IV PRN (11:03)
[2020-01-02] MEDS ORDERED: HYDRALAZINE HCL INJ/PF 20 MG/1 ML SDV IV PRN (11:03)
[2020-01-02] MEDS ORDERED: MORPHINE SULFATE 10 MG/ML INJ ONE (11:22)
[2020-01-02] MEDS ORDERED: LORAZEPAM INJ 2 MG/1 ML VIAL ONE (11:44)
[2020-01-02] MEDS ORDERED: VANCOMYCIN HCL 1,500 MG in DEXTROSE 5%-WATER 250 ML IV ONE (12:00)
[2020-01-02] MEDS ORDERED: LEVETIRACETAM 1000 MG/NACL-ISO 1,000 MG/100 ML RTUPB IV ONE (12:30)
[2020-01-02] MEDS ORDERED: MORPHINE SULFATE 10 MG/ML INJ IV ONE (12:30)
[2020-01-02] MEDS: CEFTRIAXONE 1 GM/D5W RTU 1 GM/50 ML RTUPB IV SCH (12:58)
[2020-01-02] MEDS ORDERED: BENZTROPINE MESYLATE INJ 2 MG/2 ML AMPULE IM ONE (13:00)
[2020-01-02] MEDS: AMPICILLIN SODIUM 2 GM in NORMAL SALINE 100 ML IV SCH ×2 (13:02→17:36)
--- NOTE | 2020-01-02 14:05 | Operative Report ---
Bedside Procedure - History of Present Illness Indication for Procedure: AMS, Fever, r/o Meningitis/Encephalitis Date: 01/02/20 Provider: SANDER [facility]ILL - Lumbar Puncture Lumbar puncture Time completed: 12:00 Consent obtained: Yes Lumbar puncture pre-procedure: Sterile PPE donned, Betadine prep applied, Chloraprep applied, Sterile drapes applied Patient position: Lying Lumbar puncture location: L4/L5 Anesthetic type: 1% Lidocaine mL's of anesthetic: 5 Amount/type of drainage: 12ml, clear Number of attempts: 1 Complications: No
[2020-01-02 14:54] LABS: COLOR ALL TUBES COLORLESS; CSF TUBE NUMBER 3
[2020-01-02 14:55] LABS: APPEARANCE ALL TUBES CLEAR; VOLUME TUBE 1 2.5 CC; VOLUME TUBE 2 2.5 CC; VOLUME TUBE 3 2.5 CC; VOLUME TUBE 4 1.5 CC
[2020-01-02 15:01] LABS: GLUCOSE,CSF 65 mg/dL (40-70); PROTEIN,CSF 130 mg/dL (12-60)
[2020-01-02 15:09] LABS: RED BLOOD CELL,CSF 8 /uL (0-10); WHITE BLOOD CELL,CSF 243 /uL (0-5)
[2020-01-02 16:12] LABS: MONONUCLEAR CELLS CSF 5 %; POLYMORPHONUCLEAR CELLS CSF 95 %
[2020-01-02] MEDS ORDERED: ACETAMINOPHEN 650 MG SUPP.RECT PR PRN (16:18)
--- NOTE | 2020-01-02 17:04 | PDOC PROGRESS REPORT ---
Subjective Progress Note for:: 01/02/20 Subjective:: ZACHARY HALL is a 69 year old male with a history of CVA with residual right- sided weakness, diabetes and hyperlipidemia who presents to ER with 2 days duration of altered mentation. His reported that patient was found to be altered than his baseline status, was feeling extremely weak and unable to take care of himself. Patient has been having fever, nausea, vomiting of ingested moderate watery diarrhea. He also has been having dry cough over the past c ouple of days but on questioning he denies any chest pain or shortness of breath. He has not had any history of head injury, falls, loss of consciousness or abnormal body movement. 01/02/2020. Unfortunately patient still having very high fevers, does not seem to be in any acute distress still on room air, alert and oriented to himself, as per my conversation with his who is an RN at baseline patient is alert and oriented x4, lives independently, as a hobby patient is horse riding and spends excessive amount of time in the [place]. As per patient's patient has not had any sick contact except with his brother who had COVID-19 in October 2019, patient has not been hospitalized recently, has not had any surgeries, has not been started on any new medication, has not been traveling outside [place]. Patient noted to have twitching of his right upper extremity and also his neck and, patient has mild neck stiffness on physical examination, there is no sign of any rash, joint effusion, nystagmus, Kernig's or Brudzinski signs. Patient's stated that he did have his flu vaccine but she is not sure if she had his meningitis or pneumonia vaccine. Reason For Visit: ALTERED MENTAL STATUS, FUO Physical Exam Vital Signs: Temp Pulse Resp BP Pulse Ox 100.4 F 75 20 176/72 H 94 01/02/20 11:02 01/02/20 14:00 01/02/20 11:02 01/02/20 11:02 01/02/20 11:02 Intake & Output 01/01/20 01/02/20 01/03/20 06:59 06:59 06:59 Intake Total 540 1402 Output Total 400 1025 Balance -400 -485 1402 Weight 104.3 kg 94.8 kg General appearance: PRESENT: no acute distress, well-developed, well-nourished, other - Twitching on the right upper extremity, head rotated to the right side. Head exam: PRESENT: atraumatic, normocephalic - Left craniotomy scar. Respiratory exam: PRESENT: clear to auscultation francisca, rhonchi. ABSENT: rales, wheezes Cardiovascular exam: PRESENT: RRR. ABSENT: diastolic murmur, rubs, systolic murmur GI/Abdominal exam: PRESENT: normal bowel sounds, soft. ABSENT: distended, guarding, mass, organolmegaly, rebound, tenderness Neurological exam: PRESENT: alert, awake, oriented to person, CN II-XII grossly intact, other - Right upper extremity twitching, neck deviated to the right side. Mild neck stiffness noted.. ABSENT: motor sensory deficit Skin exam: PRESENT: dry, intact, warm. ABSENT: cyanosis, rash Results Laboratory Results: 01/02/20 06:50 01/01/20 06:02 01/01/20 01/02/20 01/02/20 18:25 06:50 06:50 WBC 9.1 RBC 4.37 Hgb 11.8 L Hct 35.5 L MCV 81 MCH 27.1 MCHC 33.3 RDW 15.4 H Plt Count 173 Seg Neutrophils % 78.8 H Magnesium 1.8 Ferritin 359.00 C-Reactive Protein 14.9 H TSH CSF Glucose CSF Total Protein 01/02/20 01/02/20 06:50 12:38 WBC RBC Hgb Hct MCV MCH MCHC RDW Plt Count Seg Neutrophils % Magnesium Ferritin C-Reactive Protein TSH 0.52 CSF Glucose 65 CSF Total Protein 130 H 01/01/20 01/01/20 01/02/20 01:53 01:53 06:50 Creatine Kinase 488 H CK-MB (CK-2) 3.85 Troponin I 0.051 Impressions: Chest X-Ray 01/01/20 02:08 IMPRESSION: No acute disease. Head CT 01/01/20 02:08 IMPRESSION: 1. No acute intracranial hemorrhage is seen. 2. Mild cerebral atrophy and periventricular white matter changes are seen. Assessment and Plan - Diagnosis (1) Meningitis Is this a current diagnosis for this admission?: Yes Plan: Patient is still altered and having high fevers. COVID-19 negative. Bacterial meningitis is a possibility, viral meningitis or encephalitis cannot be ruled out. Status post lumbar puncture 01/02/2020. CSF pressure 25 cc. Initial CSF analysis shows WBC or 243, RBC 8, PMN 95 protein 130. No recent exposure to anybody with similar symptoms, remote history of craniotomy in 1994 for left CVA. As per he did not have any rash however patient spends excessive amount of time in the [place] and does horse riding as a hobby. Given high fever and initial CSF findings will start on broad-spectrum IV a ntibiotics and antivirals. Day 2 IV antibiotics. Day 1 IV vancomycin. Day 2 IV ceftriaxone. Day 1 IV ampicillin. 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 Received 1 day of IV azithromycin. Also started on Keppra 1000 mg IV twice daily in case patient having seizure, this can be DC'd once EEG result is available. Pending MRI with and without. Unfortunately patient had a craniotomy with metal in his cranium. Currently is looking for records to see if it is MRI compatible. Status post EEG to rule out status epilepticus. Pending report. Infectious disease consult. Pending recommendation. Continue empiric IV antibiotics, antibiotics, and procedures. Follow-up MRI report. Follow-up EEG report. Follow-up ID recommendation. (2) Acute metabolic encephalopathy Is this a current diagnosis for this admission?: Yes Plan: Neli due to problem #1. At baseline patient is alert and oriented x4. Plan as per #1. (3) Hypertension Is this a current diagnosis for this admission?: Yes Plan: Uncontrolled. Euvolemic. Patient is on multiple oral antihypertensive. Unfortunately patient currently not taking oral medication due to altered mental status. Continue pain medication once patient is p.o. tolerant. Continue as needed IV hydralazine and IV labetalol. (4) Suspected COVID-19 virus infection Is this a current diagnosis for this admission?: Yes Plan: COVID-19 negative. (5) BPH (benign prostatic hyperplasia) Is this a current diagnosis for this admission?: Yes Plan: Resume home meds. Outpatient PCP and urology follow-up. (6) 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 Is this a current diagnosis for this admission?: Yes Plan: History of remote CVA left MCA. Status post craniotomy. Residual right upper extremity weakness. Continue antiplatelets, statins, optimize BP. (7) Diabetes Qualifiers: Diabetes mellitus type: type 2 Is this a current diagnosis for this admission?: Yes Plan: Diabetic diet, sliding scale insulin, basal insulin, prandial insulin. Accu-Chek, hypoglycemia protocol. Resume home meds upon discharge. Outpatient PCP follow-up. - Time Time Spent with patient: 35 or more minutes Medications reviewed and adjusted accordingly: Yes Anticipated Discharge Disposition: Home with Home Health Anticipated Discharge Timeframe: within 72 hours
[2020-01-02] MEDS ORDERED: AZITHROMYCIN 500 MG in DEXTROSE 5%-WATER 250 ML IV SCH (18:00)
[2020-01-02] MEDS ORDERED: CEFTRIAXONE 1 GM/D5W RTU 1 GM/50 ML RTUPB IV SCH (18:00)
[2020-01-02] MEDS: LABETALOL HCL INJ 20 MG/4 ML DISP.SYRIN IV PRN (18:30)
[2020-01-02] MEDS: ASPIRIN 600 MG SUPP, RECTAL PR SCH (18:32)
[2020-01-02] MEDS ORDERED: KETOROLAC TROMETHAMINE INJ/PF 30 MG/1 ML SDV IV ONE (19:00)
--- NOTE | 2020-01-02 21:02 | NEURO WORKBENCH EEG REPORT ---
EEG Report Patient: Christian Fajardo ID: [id number] Referring Doctor: Daily Barajas Date: 01/02/2020 Reason for study: Evaluate Epileptiform activity Medications: Norvasc, Ampicillin, Lipitor, Rocephin, Clonidine, Cadura, Pepcid, Proscar, Cozaar, Vancomycin History: This is a 69 year old male with a history of CVA, Hypercholesterolemia, renal insufficiency, DM2, Prostate issues not otherwise specified, who was admitted with AMS. This EEG was requested for evaluation of epileptiform activity. EEG Interpretation: This EEG was recorded during an indeterminate state. The EEG is dominated by myogenic artifact. In the brief periods where the EEG was interpretable, there was no discernible posterior background rhythm, and was dominated by diffuse delta-theta activity. There was no posterior background rhythm. There was no normal sleep architecture. The EEG is symmetric in amplitudes and frequencies. Photic stimulation resulted in no appreciable photic driving, and there was no epileptiform activity elicited with photic stimulation There were no epileptiform abnormalities (no sharp waves and no spikes). There were no seizures. The EKG showed a regular rhythm with typically 60-75 beats per minute. EEG Impression: This EEG is abnormal due to diffuse background slowing which is non-specific for etiology. This EEG is consistent with encephalopathy which is non-specific for etiology. Considerations should include (but not exhaustive) metabolic and toxic etiologies. It should be noted that diffuse myogenic artifact prohibited interpretation. There was no epileptiform activity or seizures. A single normal routine EEG does not rule out the possibility of epilepsy. If there is high clinical suspicion for epilepsy, then additional EEG evaluation should be considered with a sleep-deprived EEG or more prolonged EEG monitoring. INTERPRETING NEUROLOGIST: Maury Sargent MD Board certified by the [place] [employer] in Neurology, Clinical Neurophysiology, and Sleep Medicine [facility]
[2020-01-02] MEDS: LEVETIRACETAM 1000 MG/NACL-ISO 1,000 MG/100 ML RTUPB IV SCH (21:37)
[2020-01-02] MEDS: ACYCLOVIR SODIUM 900 MG in NORMAL SALINE 250 ML IV SCH (22:01)
[2020-01-03] MEDS: LOSARTAN POTASSIUM 50 MG TABLET PO SCH ×3 (01:40→22:23)
[2020-01-03] MEDS: DOXAZOSIN MESYLATE 4 MG TABLET PO SCH ×2 (01:40→22:22)
[2020-01-03] MEDS: FAMOTIDINE 20 MG TABLET PO SCH ×3 (01:41→22:22)
[2020-01-03] MEDS: ATORVASTATIN CALCIUM 80 MG TABLET PO SCH ×2 (01:41→22:23)
[2020-01-03] MEDS: AMLODIPINE BESYLATE 5 MG TABLET PO SCH ×2 (01:41→20:16)
[2020-01-03] MEDS: AMPICILLIN SODIUM 2 GM in NORMAL SALINE 100 ML IV SCH ×5 (01:48→23:54)
[2020-01-03] MEDS: HEPARIN SOD (PORCINE) 5,000 UNIT/ML 1 ML VIAL SUBCUT SCH ×3 (05:43→22:24)
[2020-01-03] MEDS: RINGERS SOLUTION,LACTATED 1,000 ML IV PRN (06:19)
[2020-01-03 06:49] LABS: ABSOLUTE LYMPHOCYTES (AUTO) 0.9 10^3/uL (0.5-4.7); ABSOLUTE MONOCYTES (AUTO) 0.7 10^3/uL (0.1-1.4); ABSOLUTE NEUT (AUTO) 7.3 10^3/uL (1.7-8.2); BASOPHILS % (AUTO) 0.2 % (0-2); EOSINOPHILS % (AUTO) 0.3 % (0-6); HEMATOCRIT 33.6 % (37.9-51.0); HEMOGLOBIN 11.3 g/dL (13.5-17.0); MEAN CORPUSCULAR HEMOGLOBIN 27.2 pg (27.0-33.4); MEAN CORPUSCULAR HGB CONC 33.6 g/dL (32.0-36.0); MEAN CORPUSCULAR VOLUME 81 fl (80-97); MONOCYTES % (AUTO) 7.3 % (3-13); PLATELET COUNT 153 10^3/uL (150-450); RED BLOOD COUNT 4.15 10^6/uL (4.35-5.55); RED CELL DISTRIBUTION WIDTH 15.2 % (11.5-14.0); SEGMENTED NEUTROPHILS % (AUTO) 82.2 % (42-78); TOTAL CELLS COUNTED % (AUTO) 100 %; WHITE BLOOD COUNT 8.9 10^3/uL (4.0-10.5)
[2020-01-03 07:01] LABS: ALBUMIN 3.5 g/dL (3.5-5.0); ALKALINE PHOSPHATASE 63 U/L (38-126); ANION GAP 11 (5-19); ASPARTATE AMINO TRANSFERASE 90 U/L (17-59); BILIRUBIN,DIRECT 0.4 mg/dL (0.0-0.4); BILIRUBIN,TOTAL 0.7 mg/dL (0.2-1.3); BLOOD UREA NITROGEN 33 mg/dL (7-20); CALCIUM 8.7 mg/dL (8.4-10.2); CARBON DIOXIDE 21 mmol/L (22-30); CHLORIDE 108 mmol/L (98-107); GLUCOSE 122 mg/dL (75-110); POTASSIUM 3.9 mmol/L (3.6-5.0); TOTAL PROTEIN 6.5 g/dL (6.3-8.2)
[2020-01-03] MEDS: ACYCLOVIR SODIUM 900 MG in NORMAL SALINE 250 ML IV SCH ×3 (07:05→23:54)
[2020-01-03] MEDS: HYDRALAZINE HCL 50 MG TABLET PO SCH ×3 (10:10→17:32)
[2020-01-03] MEDS: LEVETIRACETAM 1000 MG/NACL-ISO 1,000 MG/100 ML RTUPB IV SCH ×2 (10:10→22:22)
[2020-01-03] MEDS: CLONIDINE HCL 0.1 MG TABLET PO SCH ×3 (10:11→17:32)
[2020-01-03] MEDS: FINASTERIDE 5 MG TABLET PO SCH (10:11)
[2020-01-03] MEDS: FERROUS SULFATE 325 MG TABLET PO SCH ×2 (10:11→17:32)
[2020-01-03] MEDS: ASPIRIN 81 MG TABLET, CHEWABLE PO SCH (10:11)
[2020-01-03] MEDS ORDERED: DEXTROSE 5%-LACTATED RINGERS 1,000 ML IV PRN (10:21)
[2020-01-03] MEDS: ASPIRIN 600 MG SUPP, RECTAL PR SCH (10:47)
[2020-01-03] MEDS: CEFTRIAXONE 1 GM/D5W RTU 1 GM/50 ML RTUPB IV SCH (10:49)
[2020-01-03 13:29] LABS: ARTERIAL BLOOD BASE EXCESS -0.3 mmol/L; ARTERIAL BLOOD H2CO3 0.94 mmol/L (1.05-1.35); ARTERIAL BLOOD HCO3 22.5 mmol/L (20-24); ARTERIAL BLOOD O2 SATURATION 97.5 % (94-98); ARTERIAL BLOOD PCO2 31.1 mmHg (35-45); ARTERIAL BLOOD PH 7.48 (7.35-7.45); ARTERIAL BLOOD PO2 91.3 mmHg (80-100); ARTERIAL BLOOD TOTAL CO2 23.5 mmol/L (23-27)
[2020-01-03 13:30] LABS: ARTERIAL BLOOD FIO2 24%
[2020-01-03] MEDS: VANCOMYCIN HCL 1,250 MG in DEXTROSE 5%-WATER 250 ML IV SCH (13:35)
[2020-01-03] MEDS: DOXYCYCLINE HYCLATE 100 MG in DEXTROSE 5%-WATER 250 ML IV SCH (15:44)
[2020-01-03 16:34] LABS: AMORPHOUS SEDIMENT,URINE TRACE /HPF; APPEARANCE,URINE CLOUDY; BILIRUBIN,URINE NEGATIVE (NEGATIVE); COLOR,URINE AMBER; GLUCOSE, URINE NEGATIVE (NEGATIVE); KETONES,URINE NEGATIVE (NEGATIVE); PROTEIN,URINE 100 mg/dL (NEGATIVE); URINE SPECIFIC GRAVITY 1.021; UROBILINOGEN,URINE NEGATIVE mg/dL (<2.0)
[2020-01-03 16:41] LABS: URINE AMPHETAMINES SCREEN NEGATIVE; URINE BARBITURATES SCREEN NEGATIVE; URINE BENZODIAZEPINES SCREEN NEGATIVE; URINE COCAINE SCREEN NEGATIVE; URINE MARIJUANA (THC) SCREEN NEGATIVE; URINE METHADONE SCREEN NEGATIVE
--- NOTE | 2020-01-03 16:45 | RADIOLOGY REPORT (SQ) ---
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 TECHNIQUE: Dynamic and static grayscale images acquired of the kidneys and bladder and recorded on P ACS. Additional selected color Doppler and spectral images recorded. LIMITATIONS: Large body habitus, limited visualization of the left kidney FINDINGS: RIGHT KIDNEY: 14 cm in length. Normal echogenicity. No solid or suspicious masses. No hydr onephrosis. No calcifications. 3 cm right upper pole cortical cyst, 6.5 cm right lower pole cortical cyst. LEFT KIDNEY: 9 cm in length. Difficult to visualize due to body habitus. No gross left hydronephro sis. Question 2 cm left midpole cyst versus mass. BLADDER: Decompressed by a Quintero catheter, not well seen. OTHER FINDINGS: No other significant finding. IMPRESSION: Very limited study. No hydronephrosis. Question 2 cm left midpole cyst versus mass TECHNICAL DOCUMENTATION: JOB ID: [id number] [employer]- All Rights Reserved Reading location - IP/workstation name: [email or web address]
[2020-01-03 16:49] LABS: URINE PHENCYCLIDINE SCREEN NEGATIVE
--- NOTE | 2020-01-03 17:18 | PDOC PROGRESS REPORT ---
Subjective Subjective:: Per Previous Physician: "ZACHARY HALL is a 69 year old male with a history of CVA with residual right-sided weakness, diabetes and hyperlipidemia who presents to ER with 2 days duration of altered mentation. His reported that patient was found to be altered than his baseline status, was feeling extremely weak and unable to take care of himself. Patient has been having fever, nausea, vomiting of ingested moderate watery diarrhea. He also has been having dry cough over the past couple of days but on questioning he denies any chest pain or shortness of breath. He has not had any history of head injury, falls, loss of consciousness or abnormal body movement. 01/02/2020. Unfortunately patient still having very high fevers, does not seem to be in any acute distress still on room air, alert and oriented to himself, as per my conversation with his who is an RN at baseline patient is alert and oriented x4, lives independently, as a hobby patient is horse riding and spends excessive amount of time in the [place]. As per patient's patient has not had any sick contact except with his brother who had COVID-19 in October 2019, patient has not been hospitalized recently, has not had any surgeries, has not been started on any new medication, has not been traveling outside [place]. Patient noted to have twitching of his right upper extremity and also his neck and, patient has mild neck stiffness on physical examination, there is no sign of any rash, joint effusion, nystagmus, Kernig's or Brudzinski signs. Patient's stated that he did have his flu vaccine but she is not sure if she had his meningitis or pneumonia vaccine." 01/03/2020 Fever curve is improved. He still appears extremely ill. I am concerned that he is unable to breathe appropriately due to his swollen tongue. Spoke with respiratory therapy and we got an ABG which showed hyperventilation. We have applied a CPAP to see if this will assist with his breathing effort. I suspect he has underlying sleep apnea. Nursing has checked his residual bladder contents multiple times a day and it has not shown a significant volume. He still having some bloody urine output. EEG was normal. 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 Discussed the case with ID today and they have adjusted antibiotic dosing and added doxycycline for Lyme coverage. Patient cannot give me a review of systems today. Reason For Visit: ALTERED MENTAL STATUS, FUO Physical Exam Vital Signs: Temp Pulse Resp BP Pulse Ox 98.4 F 82 32 H 154/83 H 99 01/03/20 15:19 01/03/20 15:19 01/03/20 15:19 01/03/20 15:19 01/03/20 15:19 Intake & Output 01/02/20 01/03/20 01/04/20 06:59 06:59 06:59 Intake Total 540 3070 1066 Output Total 1025 60 Balance -485 3010 1066 Weight 94.8 kg 94.8 kg Exam: General appearance: PRESENT: no acute distress, well-developed, well-nourished, sleepy and minimally arousable Head exam: PRESENT: atraumatic, normocephalic, swollen tongue Eye exam: PRESENT: conjunctiva pink. ABSENT: scleral icterus Mouth exam: PRESENT: moist Respiratory exam: PRESENT: clear to auscultation francisca. ABSENT: rales, rhonchi, wheezes Cardiovascular exam: PRESENT: RRR. ABSENT: diastolic murmur, rubs, systolic murmur GI/Abdominal exam: PRESENT: normal bowel sounds, soft. ABSENT: distended, guarding, mass, organolmegaly, rebound, tenderness Neurological exam: PRESENT: Not alert or awake Psychiatric exam: PRESENT: appropriate affect, normal mood Skin exam: PRESENT: dry, intact, warm Eye exam: PRESENT: conjunctiva pink. ABSENT: scleral icterus Mouth exam: PRESENT: moist Respiratory exam: PRESENT: rales - Mild upper airway congestion. ABSENT: rhonchi, wheezes Cardiovascular exam: PRESENT: RRR. ABSENT: diastolic murmur, rubs, systolic murmur GI/Abdominal exam: PRESENT: normal bowel sounds, soft. ABSENT: distended, gu arding, mass, organolmegaly, rebound, tenderness Neurological exam: ABSENT: alert, awake Skin exam: PRESENT: dry, intact, warm Results Laboratory Results: 01/03/20 06:24 01/03/20 06:24 01/03/20 01/03/20 01/03/20 06:24 06:24 12:45 WBC 8.9 RBC 4.15 L Hgb 11.3 L Hct 33.6 L MCV 81 MCH 27.2 MCHC 33.6 RDW 15.2 H Plt Count 153 Seg Neutrophils % 82.2 H Carbonic Acid 0.94 L HCO3/H2CO3 Ratio 23:1 ABG pH 7.48 H ABG pCO2 31.1 L ABG pO2 91.3 ABG HCO3 22.5 ABG O2 Saturation 97.5 ABG Base Excess -0.3 FiO2 24% Sodium 140.2 Potassium 3.9 Chloride 108 H Carbon Dioxide 21 L Anion Gap 11 BUN 33 H Creatinine 1.88 H Est GFR ( Amer) 43 L Glucose 122 H Calcium 8.7 Magnesium 2.1 Total Bilirubin 0.7 AST 90 H Alkaline Phosphatase 63 Total Protein 6.5 Albumin 3.5 Urine Color Urine Appearance Urine pH Ur Specific [place] Urine Protein Urine Glucose (UA) Urine Ketones Urine Blood Urine RBC (Auto) 01/03/20 16:04 WBC RBC Hgb Hct MCV MCH MCHC RDW Plt Count Seg Neutrophils % Carbonic Acid HCO3/H2CO3 Ratio ABG pH ABG pCO2 ABG pO2 ABG HCO3 ABG O2 Saturation ABG Base Excess FiO2 Sodium Potassium Chloride Carbon Dioxide Anion Gap BUN Creatinine Est GFR ( Amer) Glucose Calcium Magnesium Total Bilirubin AST Alkaline Phosphatase Total Protein Albumin Urine Color KENY Urine Appearance CLOUDY Urine pH 6.0 Ur Specific [place] 1.021 Urine Protein 100 H Urine Glucose (UA) NEGATIVE Urine Ketones NEGATIVE Urine Blood LARGE H Urine RBC (Auto) >182 01/01/20 01/01/20 01/02/20 01:53 01:53 06:50 Creatine Kinase 488 H CK-MB (CK-2) 3.85 Troponin I 0.051 Impressions: Chest X-Ray 01/01/20 02:08 IMPRESSION: No acute disease. Head CT 01/01/20 02:08 IMPRESSION: 1. No acute intracranial hemorrhage is seen. 2. Mild cerebral atrophy and periventricular white matter changes are seen. Renal Ultrasound 01/03/20 00:00 IMPRESSION: Very limited study. No hydronephrosis. Question 2 cm left midpole cyst versus mass Assessment and Plan - Diagnosis (1) Meningitis Is this a current diagnosis for this admission?: Yes Plan: Per Previous Physician: "Patient is still altered and having high fevers. COVID-19 negative. Bacterial meningitis is a possibility, viral meningitis or encephalitis cannot be ruled out. Status post lumbar puncture 01/02/2020. CSF pressure 25 cc. Initial CSF analysis shows WBC or 243, RBC 8, PMN 95 protein 130. No recent exposure to anybody with similar symptoms, remote history of cr aniotomy in 1994 for left CVA. As per he did not have any rash however patient spends excessive amount of time in the [place] and does horse riding as a hobby. Given high fever and initial CSF findings will start on broad-spectrum IV antibiotics and antivirals. Day 2 IV antibiotics. Day 1 IV vancomycin. Day 2 IV ceftriaxone. Day 1 IV ampicillin. 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 Received 1 day of IV azithromycin. Also started on Keppra 1000 mg IV twice daily in case patient having seizure, this can be DC'd once EEG result is available. Pending MRI with and without. Unfortunately patient had a craniotomy with metal in his cranium. Currently is looking for records to see if it is MRI compatible. Status post EEG to rule out status epilepticus. Pending report. Infectious disease consult. Pending recommendation. Continue empiric IV antibiotics, antibiotics, and procedures. Follow-up MRI report. Follow-up EEG report. Follow-up ID recommendation." Dosing of ceftriaxone increased to meet meningitis requirements ID consulted Added doxycycline for possible Lyme disease given potential outdoor exposure reported EEG with nonspecific findings consistent with encephalopathy, no seizure activity MRI pending (2) BPH (benign prostatic hyperplasia) Is this a current diagnosis for this admission?: Yes Plan: Resume home meds. Outpatient PCP and urology follow-up. (3) Acute metabolic encephalopathy Is this a current diagnosis for this admission?: Yes Plan: Likely due to meningitis/encephalitis Treatment as outlined Possibly has underlying vascular dementia from prior stroke (4) CKD (chronic kidney disease) stage 3, GFR 30-59 ml/min Qualifiers: Chronic kidney disease stage 3 subtype: stage 3b (GFR 30-44) Qualified Code(s): N18.32 - Chronic kidney disease, stage 3b Is this a current diagnosis for this admission?: Yes (5) Diabetes Qualifiers: Diabetes mellitus type: type 2 Is this a current diagnosis for this admission?: Yes (6) Diarrhea Is this a current diagnosis for this admission?: Yes (7) Elevated CK Is this a current diagnosis for this admission?: Yes (8) 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 (12) Viral syndrome Is this a current diagnosis for this admission?: Yes - Time Time Spent with patient: 35 or more minutes Medications reviewed and adjusted accordingly: Yes Anticipated Discharge Disposition: Longterm Facility Anticipated Discharge Timeframe: within 72 hours - Inpatient Certification Based on my medical assessment, after consideration of the patient's comorbidities, presenting symptoms, or acuity I expect that the services needed warrant INPATIENT care.: Yes I certify that my determination is in accordance with my understanding of Medicare's requirements for reasonable and necessary INPATIENT services [42 CFR 412.3e].: Yes Medical Necessity: Significant Comorbidiites Make Outpatient Treatment Too Risky, Need Close Monitoring Due to Risk of Patient Decompensation, Need for IV Antibiotics, Risk of Complication if Not Cared For in Hospital, Risk of Diagnosis Which Will Require Inpatient Eval/Care/Monitoring
--- NOTE | 2020-01-03 20:36 | Progress Note ---
Provider Note Provider Note: [facility] ID Telephone Advice Consultation Chart reviewed, patient not examined or seen. This is a 69-year-old man with history of diabetes mellitus, hypercholesterolemia, and stroke with residual right hemiparesis who presented to the hospital on 12/31 due to fever, altered mental status, nausea, vomiting, diarrhea for 2 days. Per notes, patient spends a significant amount of time outdoors in [place] and [place]. His brother had COVID-19 in October. No other sick contacts or animal contact. NO traveling. Once in the ED, patient was found febrile with mild leukocytosis. Mental status was altered. He also had involuntary movements in neck and right upper extremity. He had a lumbar puncture that showed WBC 243 (95% PMN), protein 130 and glucose 65. Opening pressure 25 cm H2O. CSF culture is in process, no growth to date, blood cultures as well negative to date. He had an acute kidney injuryl slowly improving. Renal US with cyst vs mass. CT scan of the head without acute findings. He was started on vancomcyin, ceftriaxone, ampicillin. acyclovir. ID consulted for recommendations. Allergies: No Known Allergies Allergy (Unverified 01/01/20 02:46) Home Medications: Amlodipine Besylate [Norvasc 10 mg Tablet] 10 mg PO BID 01/01/20 Clonidine HCl 0.3 mg PO TID 01/01/20 Docusate Sodium [Colace 100 mg Capsule] 100 mg PO BID PRN 01/01/20 Ferrous Sulfate [Ferosul] 325 mg PO BID 01/01/20 Finasteride [Proscar] 5 mg PO DAILY 01/01/20 Furosemide [Lasix 20 mg Tablet] 10 mg PO DAILY 01/01/20 Glimepiride 2 mg PO DAILY 01/01/20 Hydralazine HCl 100 mg PO TID 01/01/20 Labetalol HCl [Normodyne 200 mg Tablet] 300 mg PO Q8 01/01/20 Losartan Potassium 100 mg PO DAILY 01/01/20 Rosuvastatin Calcium 40 mg PO DAILY 01/01/20 Terazosin HCl 5 mg PO QHS 01/01/20 Vital Signs: Temp Pulse Resp BP Pulse Ox 98.5 F 71 20 174/66 H 98 01/03/20 19:55 01/03/20 19:55 01/03/20 19:55 01/03/20 19:55 01/03/20 19:55 Intake & Output 01/02/20 01/03/20 01/04/20 06:59 06:59 06:59 Intake Total 540 3070 1434 Output Total 1025 60 150 Balance -485 3010 1284 Weight 94.8 kg 94.8 kg Weight/Height Weight 94.8 kg Height 6 ft 1 in Laboratories: 01/03/20 06:24 01/03/20 06:24 MCV 81 fl (80-97) 01/03/20 06:24 MCH 27.2 pg (27.0-33.4) 01/03/20 06:24 MCHC 33.6 g/dL (32.0-36.0) 01/03/20 06:24 RDW 15.2 % (11.5-14.0) H 01/03/20 06:24 Seg Neutrophils % 82.2 % (42-78) H 01/03/20 06:24 Carbonic Acid 0.94 mmol/L (1.05-1.35) L 01/03/20 12:45 HCO3/H2CO3 Ratio 23:1 01/03/20 12:45 ABG pH 7.48 (7.35-7.45) H 01/03/20 12:45 ABG pCO2 31.1 mmHg (35-45) L 01/03/20 12:45 ABG pO2 91.3 mmHg (80-100) 01/03/20 12:45 ABG HCO3 22.5 mmol/L (20-24) 01/03/20 12:45 ABG O2 Saturation 97.5 % (94-98) 01/03/20 12:45 ABG Base Excess -0.3 mmol/L 01/03/20 12:45 VBG pH 7.44 (7.30-7.42) H 01/01/20 04:18 VBG pCO2 32.5 mmHg (35-63) L 01/01/20 04:18 VBG HCO3 21.5 mmol/L (20-32) 01/01/20 04:18 VBG Base Excess -1.9 mmol/L 01/01/20 04:18 FiO2 24% 01/03/20 12:45 Chloride 108 mmol/L (98-107) H 01/03/20 06:24 Carbon Dioxide 21 mmol/L (22-30) L 01/03/20 06:24 Anion Gap 11 (5-19) 01/03/20 06:24 Est GFR ( Amer) 43 (>60) L 01/03/20 06:24 Glucose 122 mg/dL (75-110) H 01/03/20 06:24 Lactic Acid 0.9 mmol/L (0.7-2.1) 01/01/20 01:53 Calcium 8.7 mg/dL (8.4-10.2) 01/03/20 06:24 Phosphorus 2.6 mg/dL (2.5-4.5) 01/01/20 01:53 Magnesium 2.1 mg/dL (1.6-2.3) 01/03/20 06:24 Ferritin 359.00 ng/mL (17.9-464.0) 01/01/20 18:25 Total Bilirubin 0.7 mg/dL (0.2-1.3) 01/03/20 06:24 AST 90 U/L (17-59) H 01/03/20 06:24 Alkaline Phosphatase 63 U/L (38-126) 01/03/20 06:24 C-Reactive Protein 14.9 mg/L (<10.0) H 01/01/20 18:25 Total Protein 6.5 g/dL (6.3-8.2) 01/03/20 06:24 Albumin 3.5 g/dL (3.5-5.0) 01/03/20 06:24 TSH 0.52 uIU/mL (0.47-4.68) 01/02/20 06:50 Urine Color KENY 01/03/20 16:04 Urine Appearance CLOUDY 01/03/20 16:04 Urine pH 6.0 (5.0-9.0) 01/03/20 16:04 Ur Specific [place] 1.021 01/03/20 16:04 Urine Protein 100 mg/dL (NEGATIVE) H 01/03/20 16:04 Urine Glucose (UA) NEGATIVE mg/dL (NEGATIVE) 01/03/20 16:04 Urine Ketones NEGATIVE mg/dL (NEGATIVE) 01/03/20 16:04 Urine Blood LARGE (NEGATIVE) H 01/03/20 16:04 Urine RBC (Auto) >182 /HPF 01/03/20 16:04 Fluid Tube Number 3 01/02/20 12:38 CSF Volume 9.0 CC 01/02/20 12:38 CSF Appearance CLEAR 01/02/20 12:38 CSF Color COLORLESS 01/02/20 12:38 CSF WBC 243 /uL (0-5) H 01/02/20 12:38 CSF RBC 8 /uL (0-10) 01/02/20 12:38 CSF Polymorphonuclear 95 % 01/02/20 12:38 CSF Glucose 65 mg/dL (40-70) 01/02/20 12:38 CSF Total Protein 130 mg/dL (12-60) H 01/02/20 12:38 01/01/20 01/01/20 01/02/20 01:53 01:53 06:50 Creatine Kinase 488 H CK-MB (CK-2) 3.85 Troponin I 0.051 Microbiology: Blood culture: 12/31 NGTD CSF culture: 01/01 NGTD Radiology: Chest X-Ray 01/01/20 02:08 IMPRESSION: No acute disease. Head CT 01/01/20 02:08 IMPRESSION: 1. No acute intracranial hemorrhage is seen. 2. Mild cerebral atrophy and periventricular white matter changes are seen. Renal Ultrasound 01/03/20 00:00 IMPRESSION: Very limited study. No hydronephrosis. Question 2 cm left midpole cyst versus mass Assessment and Recommendations: Patient evaluated for encephalopathy. 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 CSF is consistent with inflammation. It has PMN predominance and elevated protein, which can be seen with bacterial, rickettsial or early during viral infection. Glucose was not significantly lower than serum glucose, rare for common bacterial meningitis. CT scan didn't show any changes, MRI may be more helpful looking for enhancement of the meninges or specific areas of inflammation (temporal in HSV, vasculitic changes with VZV, etc. Possible etiologies would be viral as HSV being the most common, Eastern Equine Encephalitis due to presentation with GI symptoms and his exposure to horses, West Nile Virus as well due to GI symptoms and neurological presentation. VZV also in the differential, even in the absence of a rash. Rickettsial infection can present with similar findings considering his exposure in [place] (Ehrlichiosis, RMSF). Bacterial infection like listeria monocytogenes considering his age, and GI symptoms. Other less likely would be cryptococcal meningitis, although it is still possible in immunocompromised patients. In terms of antibiotic coverage, vancomycin, ceftriaxone 2g every 12 hr, ampicillin 2g every 4 hr, acyclovir are adequate. Will recommend adding d oxycycline 100 mg bid for Rickettsial infection. For diagnosis, will recommend: 1- HIV test 2- HSV PCR - CSF 3- VZV PCR - CSF 4- Cryptococcal antigen CSF and serum 5- Eastern Equine Encephalitis virus IgM (CSF and serum) 6- West Nile Virus IgM in CSF and serum, if enough CSF for PCR can add 7- RMSF IgM in serum 8- Ehrlichia PCR serum Please call if questions Sada Bang MD [facility] [phone]
[2020-01-03] MEDS ORDERED: NIFEDIPINE 30 MG TAB.ER.24 PO SCH (22:00)
[2020-01-03] MEDS: CEFTRIAXONE 2 GM/D5W RTU 2 GM/50 ML RTUPB IV SCH (22:21)
[2020-01-04] MEDS: DOXYCYCLINE HYCLATE 100 MG in DEXTROSE 5%-WATER 250 ML IV SCH ×2 (01:31→11:31)
[2020-01-04 06:10] LABS: ABSOLUTE LYMPHOCYTES (AUTO) 0.8 10^3/uL (0.5-4.7); ABSOLUTE MONOCYTES (AUTO) 0.5 10^3/uL (0.1-1.4); ABSOLUTE NEUT (AUTO) 6.4 10^3/uL (1.7-8.2); BASOPHILS % (AUTO) 0.2 % (0-2); EOSINOPHILS % (AUTO) 0.6 % (0-6); HEMATOCRIT 30.8 % (37.9-51.0); HEMOGLOBIN 10.3 g/dL (13.5-17.0); LYMPHOCYTES % (AUTO) 10.8 % (13-45); MEAN CORPUSCULAR HEMOGLOBIN 27.2 pg (27.0-33.4); MEAN CORPUSCULAR HGB CONC 33.6 g/dL (32.0-36.0); MEAN CORPUSCULAR VOLUME 81 fl (80-97); MONOCYTES % (AUTO) 6.5 % (3-13); PLATELET COUNT 151 10^3/uL (150-450); RED CELL DISTRIBUTION WIDTH 14.8 % (11.5-14.0); SEGMENTED NEUTROPHILS % (AUTO) 81.9 % (42-78); TOTAL CELLS COUNTED % (AUTO) 100 %; WHITE BLOOD COUNT 7.8 10^3/uL (4.0-10.5)
[2020-01-04] MEDS: HEPARIN SOD (PORCINE) 5,000 UNIT/ML 1 ML VIAL SUBCUT SCH ×3 (06:27→21:14)
[2020-01-04] MEDS: AMPICILLIN SODIUM 2 GM in NORMAL SALINE 100 ML IV SCH ×4 (06:28→20:13)
[2020-01-04] MEDS: ACYCLOVIR SODIUM 900 MG in NORMAL SALINE 250 ML IV SCH ×3 (07:33→22:50)
[2020-01-04] MEDS ORDERED: INFLUENZA QUAD (6MOS+) 2020-21 VAC 0.5 ML SYR IM ONE (08:00)
[2020-01-04] MEDS: HYDRALAZINE HCL 50 MG TABLET PO SCH ×3 (09:15→18:37)
[2020-01-04] MEDS: ASPIRIN 81 MG TABLET, CHEWABLE PO SCH (09:15)
[2020-01-04] MEDS: NIFEDIPINE 30 MG TAB.ER.24 PO SCH ×2 (09:15→21:07)
[2020-01-04 09:16] LABS: ANION GAP 10 (5-19); BLOOD UREA NITROGEN 32 mg/dL (7-20); CALCIUM 8.6 mg/dL (8.4-10.2); CARBON DIOXIDE 21 mmol/L (22-30); CHLORIDE 110 mmol/L (98-107); GLUCOSE 153 mg/dL (75-110)
[2020-01-04] MEDS: LOSARTAN POTASSIUM 50 MG TABLET PO SCH ×2 (09:16→21:08)
[2020-01-04] MEDS: CLONIDINE HCL 0.1 MG TABLET PO SCH ×3 (09:16→18:37)
[2020-01-04] MEDS: FERROUS SULFATE 325 MG TABLET PO SCH ×2 (09:16→18:37)
[2020-01-04] MEDS: FAMOTIDINE 20 MG TABLET PO SCH ×2 (09:16→21:08)
[2020-01-04] MEDS: LABETALOL HCL INJ 20 MG/4 ML DISP.SYRIN IV PRN (09:16)
[2020-01-04] MEDS: LEVETIRACETAM 1000 MG/NACL-ISO 1,000 MG/100 ML RTUPB IV SCH ×2 (09:17→21:07)
[2020-01-04] MEDS: ASPIRIN 600 MG SUPP, RECTAL PR SCH (09:17)
[2020-01-04] MEDS: FINASTERIDE 5 MG TABLET PO SCH (09:20)
[2020-01-04] MEDS: CEFTRIAXONE 2 GM/D5W RTU 2 GM/50 ML RTUPB IV SCH ×2 (10:40→21:46)
--- NOTE | 2020-01-04 14:02 | RADIOLOGY REPORT (SQ) ---
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 No oral contrast. Images reviewed with lung, soft tissue, and bone windows. Reconstructed coronal and sagittal MPR images reviewed. Delayed images for evaluation of the urinary system also acquired. All images stored on PACS. All CT scanners at this facility use dose modulation, iterative reconstruction, and/or weight based d osing when appropriate to reduce radiation dose to as low as reasonably achievable (ALARA). [facility]: Dose Right [facility]: CareDose [facility]: Dose Right [facility]: Teradose 4D [facility]: PayPal CONTRAST TYPE AND DOSE: contrast/concentration: Isovue 350.00 mmol/ml; Total Contrast Delivered: 100 .0 ml; Total Saline Delivered: 72.0 ml RENAL FUNCTION: BUN 32, creatinine 1.67 RADIATION DOSE: CT Rad equipment meets quality standard of care and radiation dose reduction techniq ues were employed. CTDIvol: 15.2 - 17.9 mGy. DLP: 1951 mGy-cm.. LIMITATIONS: None. FINDINGS: LOWER CHEST: Small pleural effusions and basilar airspace disease right greater than left. This could represent atelectasis or pneumonia. LIVER: Small hypoattenuating lesions in the right lobe of liver consistent with cysts. No suspicious findings. SPLEEN: Normal size. No focal lesions. PANCREAS: No masses. No significant calcifications. No adjacent inflammation or peripancreatic fluid collections. Pancreatic duct not dilated. GALLBLADDER: No identified stones by CT criteria. No inflammatory changes to suggest cholecystitis. ADRENAL GLANDS: There is bilateral adrenal fullness. Probable adenoma on the left and hyperplasia on the right. RIGHT KIDNEY AND URETER: Several right renal cysts. The largest is off the lower pole and measures 8 .7 cm. No significant calcifications. No hydronephrosis or hydroureter. LEFT KIDNEY AND URETER: No solid masses. Simple cyst in the midpole as described on prior ultrasound . Single small nonobstructing stone. No hydronephrosis or hydroureter. AORTA AND VESSELS: No aneurysm. No dissection. Renal arteries, SMA, celiac without stenosis. RETROPERITONEUM: No retroperitoneal adenopathy, hemorrhage or masses. BOWEL AND PERITONEAL CAVITY: No masses or inflammatory changes. No free fluid or peritoneal masses. APPENDIX: Normal. PELVIS: Markedly enlarged prostate which indents the base of the bladder. Small amount of air in the bladder most likely iatrogenic. A Quintero catheter has been placed. The balloon is ax inflated in th e bulbous urethra and needs to be repositioned. ABDOMINAL WALL: No masses. No hernias. BONES: No acute findings. OTHER: No other significant finding. IMPRESSION: 1. Enlarged prostate which indents the base of the bladder. 2. Quintero catheter is been inserted. The balloon is action inflated in the bulbous urethra and needs to be repositioned. 3. Basilar infiltrates right greater than left consistent with atelectasis or pneumonia. 4. Bilateral renal cysts. No solid masses. COMMENT: This report was called to ALEE MAX DO at13:55 on 01/04/2020. TECHNICAL DOCUMENTATION: JOB ID: [id number] Quality ID # [id number]: Final reports with documentation of one or more dose reduction techniques (e.g., Au tomated exposure control, adjustment of the mA and/or kV according to patient size, use of iterative reconstruction technique) 2010 [employer]- All Rights Reserved Reading location - IP/workstation name: [email or web address]
--- NOTE | 2020-01-04 15:01 | RADIOLOGY REPORT (SQ) ---
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 Images stored on PACS. CONTRAST TYPE AND DOSE: 20 mL Prohance. RENAL FUNCTION: Not indicated. ACR Type II contrast agent associated with few, if any, unconfounded cases of NSF LIMITATIONS: Patient motion FINDINGS: ANATOMY: No anomalies. Normal vascular flow voids. Pituitary fossa normal. CSF SPACES: Atrophy-induced prominence of CSF spaces and ventricles. CEREBRUM: High-signal intensity lesions scattered throughout the white matter on FLAIR imaging with d istribution suggesting chronic micro-vascular ischemic change. No evidence of hemorrhage, mass, extra axial fluid collection or acute ischemic change. No enhancing lesions. Encephalomalacia in the left MCA distribution from old infarct. POSTERIOR FOSSA: No signal alteration. No hemorrhage. No edema, masses, or mass effect. Internal barbara tory canals, cerebello-pontine angles, mastoids normal. No enhancing lesions. ORBITS: No masses. Globes normal. PARANASAL SINUSES: No fluid levels. Mucosa normal. DIFFUSION: Normal. No evidence of recent infarct. OTHER: No other significant finding. IMPRESSION: Diffuse cerebral atrophy and small-vessel ischemic change. Old left MCA infarct. No ac ignacio intracranial event. Study is limited by patient motion. EVIDENCE OF ACUTE STROKE: NO. TECHNICAL DOCUMENTATION: JOB ID: [id number] 2010 [employer]- All Rights Reserved Reading location - IP/workstation name: [email or web address]
[2020-01-04] MEDS ORDERED: TAMSULOSIN HCL 0.4 MG CAP.SR.24H PO SCH (16:00)
--- NOTE | 2020-01-04 16:44 | PDOC TRANSFER SUMMARY ---
General Admission Date/PCP: 01/02/20 11:18 Lloyd MCCONNELL MD Accepting Facility: [facility] Resuscitation Status: Full Code - Transfer Diagnosis (1) Meningitis Is this a current diagnosis for this admission?: Yes (2) BPH (benign prostatic hyperplasia) Is this a current diagnosis for this admission?: Yes (3) Acute metabolic encephalopathy Is this a current diagnosis for this admission?: Yes (4) CKD (chronic kidney disease) stage 3, GFR 30-59 ml/min Is this a current diagnosis for this admission?: Yes (5) Diabetes Is this a current diagnosis for this admission?: Yes (6) Diarrhea Is this a current diagnosis for this admission?: Yes (7) Elevated CK Is this a current diagnosis for this admission?: Yes (8) 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 Is this a current diagnosis for this admission?: Yes (9) Hypertension Is this a current diagnosis for this admission?: Yes (10) Hypomagnesemia Is this a current diagnosis for this admission?: Yes (11) Suspected COVID-19 virus infection Is this a current diagnosis for this admission?: Yes (12) Viral syndrome Is this a current diagnosis for this admission?: Yes - Transfer Medications Home Medications: Amlodipine Besylate [Norvasc 10 mg Tablet] 10 mg PO BID 01/01/20 Clonidine HCl 0.3 mg PO TID 01/01/20 Docusate Sodium [Colace 100 mg Capsule] 100 mg PO BID PRN 01/01/20 Ferrous Sulfate [Ferosul] 325 mg PO BID 01/01/20 Finasteride [Proscar] 5 mg PO DAILY 01/01/20 Furosemide [Lasix 20 mg Tablet] 10 mg PO DAILY 01/01/20 Glimepiride 2 mg PO DAILY 01/01/20 Hydralazine HCl 100 mg PO TID 01/01/20 Labetalol HCl [Normodyne 200 mg Tablet] 300 mg PO Q8 01/01/20 Losartan Potassium 100 mg PO DAILY 01/01/20 Rosuvastatin Calcium 40 mg PO DAILY 01/01/20 Terazosin HCl 5 mg PO QHS 01/01/20 Transfer Medications: Current Medications Acetaminophen (Tylenol 325 Mg Tablet) 650 mg PO Q4HP PRN PRN Reason: FEVER >101 Stop: 01/31/20 06:10 Last Admin: 10/26/20 08:25 Dose: 650 mg Documented by: Acetaminophen (Tylenol 650 Mg Supp) 650 mg MO Q4HP PRN PRN Reason: FEVER > 102 Stop: 02/01/20 16:17 Last Admin: 01/02/20 16:23 Dose: 650 mg Documented by: Aspirin (Aspirin 81 Mg Chewable Tablet) 81 mg PO DAILY LEONORA Stop: 02/02/20 09:59 Last Admin: 01/04/20 09:15 Dose: 81 mg Documented by: Aspirin (Aspirin 600 Mg Rectal Supp) 600 mg MO DAILY LEONORA Stop: 02/01/20 18:59 Last Admin: 01/04/20 09:17 Dose: 600 mg Documented by: Atorvastatin Calcium (Lipitor 80 Mg Tablet) 80 mg PO QHS LEONORA Stop: 02/01/20 21:59 Last Admin: 01/03/20 22:23 Dose: 80 mg Documented by: Clonidine (Catapres 0.1 Mg Tablet) 0.3 mg PO TID LEONORA Stop: 02/01/20 09:59 Last Admin: 01/04/20 15:11 Dose: 0.3 mg Documented by: Doxazosin Mesylate (Cardura 4 Mg Tablet) 4 mg PO QHS LEONORA Stop: 01/31/20 21:59 Last Admin: 01/03/20 22:22 Dose: 4 mg Documented by: Famotidine (Pepcid 20 Mg Tablet) 20 mg PO Q12 LEONORA Stop: 01/31/20 09:59 Last Admin: 01/04/20 09:16 Dose: 20 mg Documented by: Ferrous Sulfate (Feosol 325 Mg Tablet) 325 mg PO BID LEONORA Stop: 02/01/20 09:59 Last Admin: 01/04/20 09:16 Dose: 325 mg Documented by: Finasteride (Proscar 5 Mg Tablet) 10 mg PO DAILY [facility] Stop: 02/04/20 09:59 Heparin Sodium (Porcine) (Heparin Inj 5,000 Units/Ml 1 Ml Vial) 5,000 unit SUBCUT Q8 LEONORA Stop: 01/31/20 05:59 Last Admin: 01/04/20 15:11 Dose: 5,000 unit Documented by: Hydralazine HCl (Apresoline 50 Mg Tablet) 100 mg PO TID [facility] Stop: 02/01/20 09:59 Last Admin: 01/04/20 15:11 Dose: 100 mg Documented by: Levetiracetam (Keppra Rtu 1000 Mg/Nacl-Iso 100 Ml Premix) 1,000 mg in 100 mls @ 400 mls/hr IV Q12 [facility] Stop: 02/01/20 21:59 Last Infusion: 01/04/20 10:49 Dose: Infused Documented by: Acyclovir Sodium 900 mg/ (Sodium Chloride) 268 mls @ 265 mls/hr IV Q8 [facility] Stop: 01/09/20 21:59 Last Admin: 01/04/20 16:02 Dose: 265 mls/hr, 265 mls/hr Documented by: Dextrose/Lactated Ringer's (D5lr 1000 Ml Iv Soln) 1,000 mls @ 50 mls/hr IV CONTINUOUS PRN PRN Reason: THIS MED IS NOT "PRN" Stop: 02/02/20 10:20 Last Admin: 01/03/20 20:24 Dose: 50 mls/hr Documented by: Doxycycline Hyclate 100 mg/ (Dextrose) 250 mls @ 125 mls/hr IV Q12 [facility] Stop: 01/10/20 13:59 Last Admin: 01/04/20 11:31 Dose: 125 mls/hr, 125 mls/hr Documented by: Ceftriaxone Sodium/Dextrose (Rocephin Rtu 2 Gm/D5w 50 Ml Premix Bag) 2 gm in 50 mls @ 100 mls/hr IV Q12 [facility] Stop: 01/09/20 21:59 Last Admin: 01/04/20 10:40 Dose: 100 mls/hr, 100 mls/hr Documented by: Vancomycin HCl 1,250 mg/ (Dextrose) 250 mls @ 166.667 mls/hr IV QPM [facility] Stop: 01/10/20 17:59 Ampicillin Sodium 2 gm/ Sodium (Chloride) 100 mls @ 200 mls/hr IV Q6A [facility] Stop: 01/09/20 14:59 Last Admin: 01/04/20 15:16 Dose: 200 mls/hr, 200 mls/hr Documented by: Labetalol HCl (Normodyne Inj 20 Mg/4 Ml Syringe) 10 mg IV Q6HP PRN PRN Reason: Give For Sbp > [150] Stop: 02/01/20 17:04 Last Admin: 01/04/20 09:16 Dose: 10 mg Documented by: Losartan Potassium (Cozaar 50 Mg Tablet) 50 mg PO Q12 LEON[facility]A Stop: 02/01/20 21:59 Last Admin: 01/04/20 09:16 Dose: 50 mg Documented by: Nifedipine (Procardia Xl 30 Mg Tablet) 60 mg PO Q12 [facility]ON[facility] Stop: 02/03/20 09:59 Last Admin: 01/04/20 09:15 Dose: 60 mg Documented by: Ondansetron HCl (Zofran Inj/Pf 4 Mg/2 Ml Sdv) 4 mg IV Q8HP PRN PRN Reason: FOR NAUSEA/VOMITING Stop: 01/31/20 04:50 Tamsulosin HCl (Flomax 0.4 Mg Cap.Sr) 0.4 mg PO PCSUPPER LEONORA Stop: 02/03/20 15:59 Last Admin: 01/04/20 15:14 Dose: 0.4 mg Documented by: - Allergies Allergies/Adverse Reactions: No Known Allergies Allergy (Unverified 01/01/20 02:46) Hospital Course Hospital Course: Per Previous Physician: "ZACHARY HALL is a 69 year old male with a history of CVA with residual right-sided weakness, diabetes and hyperlipidemia who presents to ER with 2 days duration of altered mentation. His reported that patient was found to be altered than his baseline status, was feeling extremely weak and unable to take care of himself. Patient has been having fever, nausea, vomiting of ingested moderate watery diarrhea. He also has been having dry cough over the past couple of days but on questioning he denies any chest pain or shortness of breath. He has not had any history of head injury, falls, loss of consciousness or abnormal body movement. 01/02/2020. Unfortunately patient still having very high fevers, does not seem to be in any acute distress still on room air, alert and oriented to himself, as per my conversation with his who is an RN at baseline patient is alert and oriented x4, lives independently, as a hobby patient is horse riding and spends excessive amount of time in the [place]. As per patient's patient has not had any sick contact except with his brother who had COVID-19 in October 2019, patient has not been hospitalized recently, has not had any surgeries, has not been started on any new medication, has not been traveling outside [place]. Patient noted to have twitching of his right upper extremity and also his neck and, patient has mild neck stiffness on physical examination, there is no sign of any rash, joint effusion, nystagmus, Kernig's or Brudzinski signs. Patient's stated that he did have his flu vaccine but she is not sure if she had his meningitis or pneumonia vaccine." 01/03/2020 Fever curve is improved. He still appears extremely ill. I am concerned that he is unable to breathe appropriately due to his swollen tongue. Spoke with respiratory therapy and we got an ABG which showed hyperventilation. We have applied a CPAP to see if this will assist with his breathing effort. I suspect he has underlying sleep apnea. Nursing has checked his residual bladder contents multiple times a day and it has not shown a significant volume. He still having some bloody urine output. EEG was normal. 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 Discussed the case with ID today and they have adjusted antibiotic dosing and added doxycycline for Lyme coverage. Patient cannot give me a review of systems today. On 01/04/2020, day of transfer, patient developed severe urinary retention and Quintero catheter was unable to be placed after many attempts by multiple nursing staff using various sizes of catheter. Patient passing large red blood clots as well as dank blood from his urethra. CT scan showed the Quintero catheter was placed inside his urethra and the balloon inflated, nursing later removed this. Patient is high risk for obstructive renal failure if he does not have definitive management of his severely enlarged prostate causing urinary retention. Patient requires urgent urologic evaluation and intervention. Outside hospital contacted for transfer. Overall, mentation is slightly improved from yesterday and patient is able to tell me he is at [facility]. He is otherwise not oriented. His tongue is a bit smaller but seems to have developed a black coating on it. CSF culture negative so far. RPR and HIV are negative. CT abdomen/pelvis showed a renal cyst in the aforementioned misplaced Quintero catheter. (1) Meningitis Is this a current diagnosis for this admission?: Yes Plan: Per Previous Physician: "Patient is still altered and having high fevers. COVID-19 negative. Bacterial meningitis is a possibility, viral meningitis or encephalitis cannot be ruled out. Status post lumbar puncture 01/02/2020. CSF pressure 25 cc. Initial CSF analysis shows WBC or 243, RBC 8, PMN 95 protein 130. No recent exposure to anybody with similar symptoms, remote history of craniotomy in 1994 for left CVA. As per he did not have any rash however patient spends excessive amount of time in the [place] and does horse riding as a hobby. Given high fever and initial CSF findings will start on broad-spectrum IV antibiotics and antivirals. IV antibiotics. IV vancomycin. IV ceftriaxone. IV ampicillin. 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 Received 1 day of IV azithromycin. Also started on Keppra 1000 mg IV twice daily in case patient having seizure, this can be DC'd once EEG result is available. Pending MRI with and without. Unfortunately patient had a craniotomy with metal in his cranium. Currently is looking for records to see if it is MRI compatible. Status post EEG to rule out status epilepticus. Pending report. Infectious disease consult. Pending recommendation. Continue empiric IV antibiotics, antibiotics, and procedures. Follow-up MRI report. Follow-up EEG report. Follow-up ID recommendation." Dosing of ceftriaxone increased to meet meningitis requirements ID consulted Added doxycycline for possible Lyme disease given potential outdoor exposure reported EEG with nonspecific findings consistent with encephalopathy, no seizure activity MRI showed old left MCA stroke, no acute abnormalities (2) BPH (benign prostatic hyperplasia) with dank hematuria and acute urinary re tention Is this a current diagnosis for this admission?: Yes Plan: -Resume home meds. Unable to place Quintero catheter despite multiple attempts using various sizes of catheter Transferred to outside facility for urologic evaluation and intervention Trend BMP, high risk for obstructive MARIZA May benefit from CBI if a Quintero catheter can actually be placed. (3) Acute metabolic encephalopathy Is this a current diagnosis for this admission?: Yes Plan: Likely due to meningitis/encephalitis Treatment as outlined Possibly has underlying vascular dementia from prior stroke Modest improvement after starting nightly CPAP (4) CKD (chronic kidney disease) stage 3, GFR 30-59 ml/min Qualifiers: Chronic kidney disease stage 3 subtype: stage 3b (GFR 30-44) Qualified Code(s): N18.32 - Chronic kidney disease, stage 3b Is this a current diagnosis for this admission?: Yes (5) Diabetes Qualifiers: Diabetes mellitus type: type 2 Is this a current diagnosis for this admission?: Yes (6) Diarrhea Is this a current diagnosis for this admission?: Yes (7) Elevated CK Is this a current diagnosis for this admission?: Yes (8) 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 (12) Viral syndrome Is this a current diagnosis for this admission?: Yes Physical Exam Vital Signs: Temp Pulse Resp BP Pulse Ox 97.2 F 88 16 190/80 H 98 01/04/20 10:00 01/04/20 08:47 01/04/20 08:47 01/04/20 08:47 01/04/20 12:35 Intake & Output 01/03/20 01/04/20 01/05/20 06:59 06:59 06:59 Intake Total 3070 4052 468 Output Total 60 950 Balance 3010 3102 468 Weight 94.8 kg 94.9 kg Exam: General appearance: PRESENT: no acute distress, well-developed, well-nourished, sleepy and somewhat arousable Head exam: PRESENT: atraumatic, normocephalic, swollen tongue but seems to be less today Eye exam: PRESENT: conjunctiva pink. ABSENT: scleral icterus Mouth exam: PRESENT: moist Respiratory exam: PRESENT: clear to auscultation francisca. ABSENT: rales, rhonchi, wheezes Cardiovascular exam: PRESENT: RRR. ABSENT: diastolic murmur, rubs, systolic murmur GI/Abdominal exam: PRESENT: normal bowel sounds, soft. ABSENT: distended, guarding, mass, organolmegaly, rebound, tenderness Neurological exam: PRESENT: Not alert or awake Psychiatric exam: PRESENT: appropriate affect, normal mood Skin exam: PRESENT: dry, intact, warm Eye exam: PRESENT: conjunctiva pink. ABSENT: scleral icterus Mouth exam: PRESENT: moist Respiratory exam: PRESENT: rales - Mild upper airway congestion. ABSENT: rhonchi, wheezes Cardiovascular exam: PRESENT: RRR. ABSENT: diastolic murmur, rubs, systolic murmur GI/Abdominal exam: PRESENT: normal bowel sounds, soft. ABSENT: distended, guarding, mass, organolmegaly, rebound, tenderness Neurological exam: ABSENT: Somewhat alert, awake, oriented to self and location, otherwise not oriented, limited neurologic exam due to difficulty following commands Skin exam: PRESENT: dry, intact, warm Results Laboratory Results: 01/04/20 04:43 01/04/20 04:43 01/03/20 01/04/20 01/04/20 16:04 04:43 04:43 WBC 7.8 RBC 3.80 L Hgb 10.3 L Hct 30.8 L MCV 81 MCH 27.2 MCHC 33.6 RDW 14.8 H Plt Count 151 Seg Neutrophils % 81.9 H Sodium 141.4 Potassium 4.0 Chloride 110 H Carbon Dioxide 21 L Anion Gap 10 BUN 32 H Creatinine 1.67 H Est GFR ( Amer) 50 L Glucose 153 H Calcium 8.6 Urine Color KENY Urine Appearance CLOUDY Urine pH 6.0 Ur Specific [place] 1.021 Urine Protein 100 H Urine Glucose (UA) NEGATIVE Urine Ketones NEGATIVE Urine Blood LARGE H Urine RBC (Auto) >182 01/01/20 01/01/20 01/02/20 01:53 01:53 06:50 Creatine Kinase 488 H CK-MB (CK-2) 3.85 Troponin I 0.051 Impressions: Chest X-Ray 01/01/20 02:08 IMPRESSION: No acute disease. Head CT 01/01/20 02:08 IMPRESSION: 1. No acute intracranial hemorrhage is seen. 2. Mild cerebral atrophy and periventricular white matter changes are seen. Renal Ultrasound 01/03/20 00:00 IMPRESSION: Very limited study. No hydronephrosis. Question 2 cm left midpole cyst versus mass Abdomen/Pelvis CT 01/04/20 00:00 IMPRESSION: 1. Enlarged prostate which indents the base of the bladder. 2. Quintero catheter is been inserted. The balloon is action inflated in the bulbous urethra and needs to be repositioned. 3. Basilar infiltrates right greater than left consistent with atelectasis or pneumonia. 4. Bilateral renal cysts. No solid masses. Head MRI 01/04/20 00:00 IMPRESSION: Diffuse cerebral atrophy and small-vessel ischemic change. Old left MCA infarct. No acute intracranial event. Study is limited by patient motion. EVIDENCE OF ACUTE STROKE: NO. Plan Time Spent: Greater than 30 Minutes
--- NOTE | 2020-01-04 16:48 | Progress Note ---
Provider Note Provider Note: Attempted to call patient's multiple times in order to tell her that patient will likely be transferred. No answer.
[2020-01-04] MEDS ORDERED: VANCOMYCIN HCL 1,250 MG in DEXTROSE 5%-WATER 250 ML IV SCH (18:00)
[2020-01-04] MEDS: VANCOMYCIN HCL 1,250 MG in DEXTROSE 5%-WATER 250 ML IV SCH (19:26)
[2020-01-04] MEDS: ATORVASTATIN CALCIUM 80 MG TABLET PO SCH (21:08)
[2020-01-04] MEDS: DOXAZOSIN MESYLATE 4 MG TABLET PO SCH (21:13)
[2020-01-05 00:36] VITALS: BP 164/62
[2020-01-05] MEDS ORDERED: FINASTERIDE 5 MG TABLET PO SCH (10:00)
[2020-01-05 14:37] LABS: ALPHA-1-GLOBULIN 1 4.2 % (1.1-6.6); ALPHA-2-GLOBULIN 7.7 % (3.0-12.6); CSF ALBUMIN 60.8 % (56.8-76.4); PRE ALBUMIN 2.6 % (2.2-7.1); TOTAL PROTEIN CSF PE 96.5 mg/dL (0.0-44.0)
[2020-01-05 15:06] LABS: CSF PE GAMMA GLOBULIN 12.2 % (3.0-13.0); PROT ELEC MSPIKE Not Observed % (Not Observ)
[2020-01-09 08:24] LABS: HSV SOURCE CSF
== END 2020-01-05 | disposition short-term general hospital (02) | DRG 94 ==
LOC: ER 01:57 → EH 05:13 → 3W 09:11 → OBSVTOIN 01-02 11:18 → 4W 01-03 04:30
PROVIDERS: ADMIT Student in an Organized Health Care Education/Training Program; ATTEND Internal Medicine
PROC: 00JU3ZZ Inspection of Spinal Canal, Percutaneous Approach (ICD-10-PCS; principal; 2020-01-02)
PROC: 3E02340 Introduction of Influenza Vaccine into Muscle, Percutaneous Approach (ICD-10-PCS; 2020-01-03)
PROC: 5A09457 Assistance with Respiratory Ventilation, 24-96 Consecutive Hours, Continuous Positive Airway Pressure (ICD-10-PCS; 2020-01-03)
DX: G00.9 Bacterial meningitis, unspecified (principal); G93.41 Metabolic encephalopathy; I69.351 Hemiplegia and hemiparesis following cerebral infarction affecting right dominant side; A86 Unspecified viral encephalitis; A87.9 Viral meningitis, unspecified; E11.22 Type 2 diabetes mellitus with diabetic chronic kidney disease; I12.9 Hypertensive chronic kidney disease with stage 1 through stage 4 chronic kidney disease, or unspecified chronic kidney disease; E83.42 Hypomagnesemia; B34.9 Viral infection, unspecified; N18.32 Chronic kidney disease, stage 3b; N40.1 Benign prostatic hyperplasia with lower urinary tract symptoms; R33.8 Other retention of urine; A08.4 Viral intestinal infection, unspecified; E78.00 Pure hypercholesterolemia, unspecified; E78.5 Hyperlipidemia, unspecified; Z20.828 Contact with and (suspected) exposure to other viral communicable diseases; Z79.899 Other long term (current) drug therapy; Z23 Encounter for immunization
CPT/HCPCS: 36415; 36600; 70450; 70553; 71045; 74177; 76770; 80048; 80053; 80307; 81001; 82550; 82553; 82728; 82803; 82945; 82962; 83605; 83615; 83735; 83916; 84100; 84146; 84157; 84166; 84443; 84484; 85025; 85379; 85610; 85730; 86140; 86592; 86701; 87040; 87070; 87205; 87210; 87496; 87529; 87635; 87798; 89050; 90686; 93005; 93010; 94660; 95819; 96365; 99285; A9576; C9803; G0378; J0133; J0290; J0360; J0456; J0515; J0696; J1644; J1885; J1953; J2060; J2270; J3370; J3475; J3490; J7050; J7060; J7120; J7121

== ENCOUNTER 2020-01-28 05:45 | Emergency (ER) | payer MEDICARE, OTHER ==
[2020-01-28 07:28] LABS: BILIRUBIN,URINE NEGATIVE (NEGATIVE); GLUCOSE, URINE 50 mg/dL (NEGATIVE); KETONES,URINE NEGATIVE (NEGATIVE); LEUKOCYTE ESTERASE,URINE NEGATIVE (NEGATIVE); NITRITE,URINE NEGATIVE (NEGATIVE); PROTEIN,URINE >=500 mg/dL (NEGATIVE); URINE SPECIFIC GRAVITY 1.026; UROBILINOGEN,URINE NEGATIVE mg/dL (<2.0)
[2020-01-28 07:29] LABS: APPEARANCE,URINE TURBID
[2020-01-28 07:30] LABS: COLOR,URINE RED
[2020-01-28] MEDS ORDERED: NORMAL SALINE 1000 ML 1,000 ML IV ONE (07:36)
[2020-01-28 08:30] LABS: ABSOLUTE EOSINOPHILS # (AUTO) 0.2 10^3/uL (0.0-0.6); ABSOLUTE LYMPHOCYTES (AUTO) 1.5 10^3/uL (0.5-4.7); ABSOLUTE MONOCYTES (AUTO) 0.5 10^3/uL (0.1-1.4); ABSOLUTE NEUT (AUTO) 6.3 10^3/uL (1.7-8.2); BASOPHILS % (AUTO) 0.4 % (0-2); EOSINOPHILS % (AUTO) 2.9 % (0-6); HEMATOCRIT 26.1 % (37.9-51.0); HEMOGLOBIN 8.6 g/dL (13.5-17.0); LYMPHOCYTES % (AUTO) 17.9 % (13-45); MEAN CORPUSCULAR HEMOGLOBIN 27.9 pg (27.0-33.4); MEAN CORPUSCULAR HGB CONC 32.9 g/dL (32.0-36.0); MEAN CORPUSCULAR VOLUME 85 fl (80-97); MONOCYTES % (AUTO) 5.8 % (3-13); PLATELET COUNT 225 10^3/uL (150-450); RED BLOOD COUNT 3.07 10^6/uL (4.35-5.55); RED CELL DISTRIBUTION WIDTH 16.2 % (11.5-14.0); TOTAL CELLS COUNTED % (AUTO) 100 %; WHITE BLOOD COUNT 8.6 10^3/uL (4.0-10.5)
[2020-01-28 08:45] LABS: INTERNATIONAL RATION (INR) 1.13; PROTHROMBIN TIME 14.7 SEC (11.4-15.4)
[2020-01-28 08:46] LABS: PARTIAL THROMBOPLASTIN TIME 43.1 SEC (23.5-35.8)
[2020-01-28 08:52] LABS: ALBUMIN 3.6 g/dL (3.5-5.0); ALKALINE PHOSPHATASE 112 U/L (38-126); ANION GAP 12 (5-19); ASPARTATE AMINO TRANSFERASE 29 U/L (17-59); BILIRUBIN,TOTAL 0.2 mg/dL (0.2-1.3); BLOOD UREA NITROGEN 38 mg/dL (7-20); CALCIUM 9.5 mg/dL (8.4-10.2); CARBON DIOXIDE 18 mmol/L (22-30); CHLORIDE 109 mmol/L (98-107); GLUCOSE 96 mg/dL (75-110); POTASSIUM 4.8 mmol/L (3.6-5.0); TOTAL PROTEIN 6.7 g/dL (6.3-8.2)
--- NOTE | 2020-01-28 10:50 | ER Document Report ---
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 Denies pain. Patient states he visited his urologist yesterday and received x2 shots to his abdomen. Patient reports history of prostate cancer, his prostate has not been removed, and is on firmagon. Patient had a edwards cath put in late December with injury and hematuria, and states the cath was removed Jan 18. Denies taking any blood thinners. TRAVEL OUTSIDE OF THE [place] IN LAST 30 DAYS: No - Related Data Allergies/Adverse Reactions: No Known Allergies Allergy (Unverified 01/01/20 02:46) Past Medical History - General Information source: Patient, [facility] Records, Outside Facility Records - Social History Smoking Status: Former Smoker Cigarette use (# per day): No Chew tobacco use (# tins/day): No Frequency of alcohol use: None Drug Abuse: None Lives with: Correction Family History: Reviewed & Not Pertinent Patient has homicidal ideation: No - Past Medical History Cardiac Medical History: Reports: Hx Hypercholesterolemia, Hx Hypertension Neurological Medical History: Reports: Hx Cerebrovascular Accident Endocrine Medical History: Reports: Hx Diabetes Mellitus Type 2 Malignancy Medical History: Reports Hx Prostate Cancer Review of Systems - Review of Systems Constitutional: No symptoms reported EENT: No symptoms reported Cardiovascular: No symptoms reported Respiratory: No symptoms reported Gastrointestinal: No symptoms reported Genitourinary: See HPI, Hematuria. denies: Pain Male Genitourinary: See HPI, Other - bleeding from penis Musculoskeletal: No symptoms reported Skin: No symptoms reported Hematologic/Lymphatic: No symptoms reported Neurological/Psychological: No symptoms reported -: Yes All other systems reviewed and negative Physical Exam - Vital signs Vitals: Temp 98.2 F 01/28/20 05:45 - General General appearance: Appears well, Alert - HEENT Head: Normocephalic, Atraumatic Eyes: Normal Pupils: PERRL - Respiratory Respiratory status: No respiratory distress Chest status: Nontender Breath sounds: Normal Chest palpation: Normal - Cardiovascular Rhythm: Regular Heart sounds: Normal auscultation Murmur: No - Abdominal Distension: Distended Bowel sounds: Normal Tenderness: Nontender - Extremities General upper extremity: Normal inspection, Normal ROM General lower extremity: Normal inspection, Normal ROM. No: Edema - Neurological Neuro grossly intact: Yes Cognition: Normal Dea Coma Scale Eye Opening: Spontaneous Dea Coma Scale Verbal: Oriented Dea Coma Scale Motor: Obeys Commands Dea Coma Scale Total: 15 Speech: Normal Sensory: Normal - Psychological Associated symptoms: Normal affect, Normal mood - Skin Skin Temperature: Warm Skin Moisture: Dry Skin Color: Normal Course - Re-evaluation Re-evalutation: 01/28/20 10:42 Patient resting comfortably not showing signs of distress at this time. 01/28/20 10:[address] Dwyer a urologist at [facility]. Inasmuch as patient's bladder only has less than 200 mL of urine in the bladder shows that patient is not obstructed because he is getting urine out in order to have this retained small amount of urine in the bladder. Dr. Dwyer is recommended that we do not place a tube Edwards catheter and patient inasmuch as this not required at this time patient is urinating. It is expected per Dr. Dwyer that patient may continue to pass urine blood which should start clearing up as he continues to improve. Patient is to follow-up with the urology clinic next week. - Vital Signs Vital signs: Temp Pulse Resp BP Pulse Ox 98.2 F 59 L 16 157/75 H 100 01/28/20 09:55 01/28/20 09:55 01/28/20 09:55 01/28/20 09:55 01/28/20 09:55 01/28/20 10:42 Vital signs stable blood pressure is 157/75. - Laboratory Result Diagrams: 01/28/20 08:04 01/28/20 08:04 Laboratory results interpreted by me: 01/28/20 01/28/20 01/28/20 06:25 08:04 08:04 RBC 3.07 L Hgb 8.6 L Hct 26.1 L RDW 16.2 H APTT 43.1 H Chloride Carbon Dioxide BUN Creatinine Est GFR ( Amer) Est GFR (MDRD) Non-Af ALT Urine Protein >=500 H Urine Glucose (UA) 50 H 01/28/20 08:04 RBC Hgb Hct RDW APTT Chloride 109 H Carbon Dioxide 18 L BUN 38 H Creatinine 2.09 H Est GFR ( Amer) 38 L Est GFR (MDRD) Non-Af 32 L ALT 73 H Urine Protein Urine Glucose (UA) Patient's laboratories show BUN 38 creatinine of 2.09 mildly elevated LFTs with 73. CO2 is 18 and chloride is 109. 01/28/20 10:43 Patient has hemoglobin hematocrit 8.9/26. With a normal platelet at 125. INR is 1.1. 01/28/20 10:45 Most recent review of patient's laboratory shows that the hemoglobin hematocrit BUN/creatinine are at his baseline the last time blood was drawn. 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 If the cause of the hematuria is known (such as a bladder infection) and can be treated, it may not need further evaluation. If the cause is not known, it will usually require further evaluation by a specialist, such as a urologist. In particular, unexplained hematuria in the older patient must be evaluated to rule out a serious condition, such as a bladder or kidney tumor. If the hematuria worsens or you are passing clots and then are unable to urinate, you should be re-evaluated. A catheter may need to be placed in the bladder to permit passage of urine. If you develop high fever, severe pain, or other new or worsening symptoms, return to the Emergency Department for re- evaluation. Case discussed with Dr. Gaspar a urologist and [facility]. Dr. Gaspar reports that patient can be discharged back to the facility and to expect that there will be further hemorrhage that seen in blood and blood clots in the urine as he hopefully clears these there is bleeding problem. Recommended that patient follows up with the [facility] urology clinic next week. Patient does require well hydration so that he can continue to keep his bladder flowing in urethra and emptying urine without having clots block the urine flow. Referrals: MNAISHA CRAWFORD MD [Primary Care Provider] - Follow up as needed I personally performed the services described in the documentation, reviewed and edited the documentation which was dictated to the scribe in my presence, and it accurately records my words and actions.
[2020-01-28 10:56] VITALS: BP 150/83
== END 2020-01-28 11:25 | disposition home or self-care (01) ==
LOC: ER 05:45
DX: C61 Malignant neoplasm of prostate (principal); R31.9 Hematuria, unspecified; E78.00 Pure hypercholesterolemia, unspecified; I10 Essential (primary) hypertension; E11.9 Type 2 diabetes mellitus without complications; Z86.73 Personal history of transient ischemic attack (TIA), and cerebral infarction without residual deficits
CPT/HCPCS: 99284; 96360; 86900; 86901; 36415; 87040; 87086; 86850; 85025; 85610; 85730; 80053; 81001; J7030

== ENCOUNTER 2020-02-04 14:19 | Inpatient (IN) | payer MEDICARE, OTHER ==
--- NOTE | 2020-02-04 15:00 | ER Document Report ---
ED General - General Stated Complaint: ABNORMAL LABS Time Seen by Provider: 02/04/20 14:27 Notes: 69-year-old male with prostate cancer CKD 3 chronic anemia presents with abnormal labs. He feels his normal self which is generally weak but denies melena or worsening hematuria traumatic Quintero recently. Hemoglobin reported in the mid 5 range outpatient labs. Was a little over a week ago. TRAVEL OUTSIDE OF THE [place] IN LAST 30 DAYS: No - Related Data Allergies/Adverse Reactions: No Known Allergies Allergy (Verified 02/04/20 14:31) Home Medications: list from [facility] on chart Past Medical History - General Information source: Patient - Social History Smoking Status: Former Smoker Chew tobacco use (# tins/day): No Frequency of alcohol use: None Drug Abuse: None Family History: Reviewed & Not Pertinent Patient has homicidal ideation: No - Past Medical History Cardiac Medical History: Reports: Hx Hypercholesterolemia, Hx Hypertension Neurological Medical History: Reports: Hx Cerebrovascular Accident Endocrine Medical History: Reports: Hx Diabetes Mellitus Type 2 Malignancy Medical History: Reports Hx Prostate Cancer Psychiatric Medical History: Denies: Hx Depression Review of Systems - Review of Systems Notes: REVIEW OF SYSTEMS GEN: Denies fever, chills, weight loss ENT: Denies sore throat, nasal discharge, ear pain EYES: Denies blurry vision, eye pain, discharge CV: Denies chest pain, palpitations, edema RESP: Denies cough, shortness of breath, wheezing GI: Denies abdominal pain, nausea, vomiting, diarrhea MSK: Denies joint pain/swelling, edema, SKIN: Denies rash, skin lesions LYMPH: Denies swollen glands/lymph nodes NEURO: Denies headache, focal weakness or numbness, dizziness PSYCH: Denies depression, suicidal or homicidal ideation PHYSICAL EXAMINATION General: No acute distress, well-nourished Head: Atraumatic, normocephalic ENT: Mouth normal, oropharynx moist, no exudates or tonsillar enlargement Eyes: Conjunctiva normal, pupils equal, lids normal Neck: No JVD, supple, no guarding CVS: Normal rate, regular rhythm, no murmurs Resp: No resp distress, equal and normal breath sounds bilaterally GI: Nondistended, soft, no tenderness to palpation, no rebound or guarding rectal: Ext: No deformities, no edema, normal range of motion in upper and lower ext Back: No CVA or midline TTP Skin: No rash, warm Lymphatic: No lymphadeopathy noted Neuro: Awake, alert. Face symmetric. GCS 15. Physical Exam - Vital signs Vitals: Temp Pulse Resp BP Pulse Ox 98.6 F 72 18 129/63 H 99 02/04/20 14:31 02/04/20 14:31 02/04/20 14:31 02/04/20 14:31 02/04/20 14:31 Course - Re-evaluation Re-evalutation: 02/04/20 16:33 Patient presents with anemia. Rectal exam: Brown stool Creatinine has drifted up hemoglobin is drifted down will require transfusion Started with 1 unit No volume overload hyperkalemia or need for urgent dialysis Discussed with Fei. Presented with Dr. Reed who is accepted Ordered 1 unit of blood - Vital Signs Vital signs: Temp Pulse Resp BP Pulse Ox 98.6 F 72 18 129/63 H 99 02/04/20 14:31 02/04/20 14:31 02/04/20 14:31 02/04/20 14:31 02/04/20 14:31 - Laboratory Result Diagrams: 02/04/20 15:06 02/04/20 15:06 Laboratory results interpreted by me: 02/04/20 02/04/20 02/04/20 15:06 15:06 15:06 RBC 2.00 L Hgb 5.6 L Hct 17.0 L RDW 16.4 H Chloride 110 H Carbon Dioxide 21 L BUN 52 H Creatinine 3.14 H Est GFR ( Amer) 24 L Est GFR (MDRD) Non-Af 20 L Glucose 112 H Crossmatch See Detail Discharge - Discharge Clinical Impression: Symptomatic anemia Condition: Fair Disposition: ADMITTED INPATIENT Admitting Provider: Eder (Hospitalist) Unit Admitted: Medical Floor
[2020-02-04 15:31] LABS: ABSOLUTE BASOPHILS # (AUTO) 0.1 10^3/uL (0.0-0.2); ABSOLUTE EOSINOPHILS # (AUTO) 0.2 10^3/uL (0.0-0.6); ABSOLUTE LYMPHOCYTES (AUTO) 1.4 10^3/uL (0.5-4.7); ABSOLUTE MONOCYTES (AUTO) 0.4 10^3/uL (0.1-1.4); ABSOLUTE NEUT (AUTO) 4.3 10^3/uL (1.7-8.2); EOSINOPHILS % (AUTO) 2.8 % (0-6); LYMPHOCYTES % (AUTO) 22.4 % (13-45); MEAN CORPUSCULAR HEMOGLOBIN 27.9 pg (27.0-33.4); MEAN CORPUSCULAR HGB CONC 32.9 g/dL (32.0-36.0); MEAN CORPUSCULAR VOLUME 85 fl (80-97); MONOCYTES % (AUTO) 6.1 % (3-13); PLATELET COUNT 196 10^3/uL (150-450); RED CELL DISTRIBUTION WIDTH 16.4 % (11.5-14.0); SEGMENTED NEUTROPHILS % (AUTO) 67.7 % (42-78); TOTAL CELLS COUNTED % (AUTO) 100 %; WHITE BLOOD COUNT 6.4 10^3/uL (4.0-10.5)
[2020-02-04 15:43] LABS: HEMOGLOBIN 5.6 g/dL (13.5-17.0)
[2020-02-04 15:45] LABS: ANION GAP 8 (5-19); BLOOD UREA NITROGEN 52 mg/dL (7-20); CALCIUM 9.1 mg/dL (8.4-10.2); CARBON DIOXIDE 21 mmol/L (22-30); CHLORIDE 110 mmol/L (98-107); GLUCOSE 112 mg/dL (75-110); POTASSIUM 4.8 mmol/L (3.6-5.0)
[2020-02-04] MEDS ORDERED: NORMAL SALINE 250 ML IV PRN ×2 (16:20)
[2020-02-04] MEDS ORDERED: DEXTROSE 40% GEL 15 GM TUBE PO PRN ×2 (17:58)
[2020-02-04] MEDS ORDERED: GLUCAGON,HUMAN RECOMB 1 MG INJ IM PRN (17:58)
[2020-02-04] MEDS ORDERED: DEXTROSE 50%-WATER 25 GM/50 ML DISP.SYRIN IV PRN ×2 (17:58)
--- NOTE | 2020-02-04 18:01 | PDOC H&P ---
History of Present Illness Admission Date/PCP: 02/04/20 16:26 ELLI PANCHAL MD Patient complains of: Weakness and low hemoglobin History of Present Illness: ZACHARY HALL is a 69 year old male who has history of hypertension, diabetes, chronic kidney disease and recent diagnosis of prostate cancer. Patient currently was staying at [facility] for rehabilitation. He was noted to be weak and deconditioned which has been progressive over the past few days. Apparently hemoglobin was down in the mid 5. He was transferred to the emergency room for an evaluation. Patient denies hematuria, hematemesis, melena or hematochezia. No active bleeding. Hemoglobin today is 5.4. Patient was ordered for transfusion by ER physician. His creatinine is also elevated at 3.14 which is above his baseline of 2.0. Patient follows with Dr. Skinner of [facility] hrology. Past Medical History Cardiac Medical History: Reports: Hyperlipidema, Hypertension Endocrine Medical History: Reports: Diabetes Mellitus Type 2 Social History Smoking Status: Former Smoker Electronic Cigarette use?: No Family History Family History: Reviewed & Not Pertinent Parental Family History Reviewed: Yes Children Family History Reviewed: NA Sibling(s) Family History Reviewed.: NA Medication/Allergy Home Medications: Amlodipine Besylate [Norvasc 10 mg Tablet] 10 mg PO BID 01/01/20 Clonidine HCl 0.3 mg PO TID 01/01/20 Docusate Sodium [Colace 100 mg Capsule] 100 mg PO BID PRN 01/01/20 Ferrous Sulfate [Ferosul] 325 mg PO BID 01/01/20 Finasteride [Proscar] 5 mg PO DAILY 01/01/20 Furosemide [Lasix 20 mg Tablet] 10 mg PO DAILY 01/01/20 Glimepiride 2 mg PO DAILY 01/01/20 Hydralazine HCl 100 mg PO TID 01/01/20 Labetalol HCl [Normodyne 200 mg Tablet] 300 mg PO Q8 01/01/20 Losartan Potassium 100 mg PO DAILY 01/01/20 Rosuvastatin Calcium 40 mg PO DAILY 01/01/20 Terazosin HCl 5 mg PO QHS 01/01/20 Allergies/Adverse Reactions: No Known Allergies Allergy (Verified 02/04/20 14:31) Review of Systems All systems: reviewed and no additional remarkable complaints except as stated Physical Exam Vital Signs: Temp Pulse Resp BP Pulse Ox 98.6 F 72 18 129/63 H 99 02/04/20 14:31 02/04/20 14:31 02/04/20 14:31 02/04/20 14:31 02/04/20 14:31 Intake & Output 02/03/20 02/04/20 02/05/20 06:59 06:59 06:59 Weight 212 lb 1.355 oz General appearance: PRESENT: no acute distress, cooperative Head exam: PRESENT: atraumatic, normocephalic Eye exam: PRESENT: EOMI. ABSENT: nystagmus Mouth exam: PRESENT: moist, neck supple Neck exam: ABSENT: meningismus, tenderness, tracheostomy Respiratory exam: PRESENT: clear to auscultation francisca, unlabored. ABSENT: accessory muscle use Cardiovascular exam: PRESENT: RRR, +S1, +S2 GI/Abdominal exam: PRESENT: normal bowel sounds, soft. ABSENT: tenderness Extremities exam: ABSENT: pedal edema Neurological exam: PRESENT: alert, awake, oriented to person, oriented to place, oriented to time, oriented to situation Results Laboratory Results: 02/04/20 15:06 02/04/20 15:06 02/04/20 02/04/20 02/04/20 15:06 15:06 15:06 WBC 6.4 RBC 2.00 L Hgb 5.6 L Hct 17.0 L MCV 85 MCH 27.9 MCHC 32.9 RDW 16.4 H Plt Count 196 Seg Neutrophils % 67.7 Sodium 139.1 Potassium 4.8 Chloride 110 H Carbon Dioxide 21 L Anion Gap 8 BUN 52 H Creatinine 3.14 H Est GFR ( Amer) 24 L Glucose 112 H Calcium 9.1 Blood Type O POSITIVE Antibody Screen NEGATIVE Assessment and Plan - Diagnosis (1) Symptomatic anemia Is this a current diagnosis for this admission?: Yes Plan: Unclear etiology. Patient had reportedly suffered from hematuria after cystoscopy that was done recently. But he has not had any bleeding since then. No evidence of GI bleeding. Will transfuse as needed. Monitor hemoglobin carefully. Check anemia profile prior to transfusion. (2) Acute renal failure Is this a current diagnosis for this admission?: Yes Plan: We will start with IV fluids. We will consult his television mechanic. Her creatinine carefully. Monitor electrolytes carefully. (3) CKD (chronic kidney disease) stage 3, GFR 30-59 ml/min Qualifiers: Chronic kidney disease stage 3 subtype: stage 3b (GFR 30-44) Qualified Code(s): N18.32 - Chronic kidney disease, stage 3b Is this a current diagnosis for this admission?: Yes Plan: Continue in acute failure. (4) Diabetes Qualifiers: Diabetes mellitus type: type 2 Is this a current diagnosis for this admission?: Yes Plan: Hold oral medications. Check hemoglobin A1c. Start insulin scale. (5) Hypertension Is this a current diagnosis for this admission?: Yes Plan: Resume home meds. Monitor blood pressure. (6) Prostate cancer Is this a current diagnosis for this admission?: Yes Plan: Follows with urology as outpatient. - Time Anticipated Discharge Disposition: Home, Self Care Anticipated Discharge Timeframe: within 72 hours
[2020-02-04 18:14] LABS: ABSOLUTE RETICS # 0.059 10^6/uL (0.028-0.122); RETICULOCYTE COUNT (AUTO) 2.99 % (0.66-2.85)
[2020-02-04 20:42] LABS: IRON(TIBC) 13.7 ug/dL (49-181)
[2020-02-04] MEDS: NORMAL SALINE 1000 ML 1,000 ML IV PRN (22:30)
[2020-02-04] MEDS: INSULIN LISPRO 100 UNIT/ML 3 ML VIAL SUBCUT SCH (22:30)
[2020-02-05 04:32] LABS: ABSOLUTE EOSINOPHILS # (AUTO) 0.3 10^3/uL (0.0-0.6); ABSOLUTE LYMPHOCYTES (AUTO) 1.6 10^3/uL (0.5-4.7); ABSOLUTE MONOCYTES (AUTO) 0.5 10^3/uL (0.1-1.4); ABSOLUTE NEUT (AUTO) 4.3 10^3/uL (1.7-8.2); BASOPHILS % (AUTO) 0.3 % (0-2); EOSINOPHILS % (AUTO) 3.9 % (0-6); HEMATOCRIT 18.9 % (37.9-51.0); LYMPHOCYTES % (AUTO) 23.6 % (13-45); MEAN CORPUSCULAR HEMOGLOBIN 27.9 pg (27.0-33.4); MEAN CORPUSCULAR HGB CONC 32.9 g/dL (32.0-36.0); MEAN CORPUSCULAR VOLUME 85 fl (80-97); MONOCYTES % (AUTO) 7.1 % (3-13); PLATELET COUNT 199 10^3/uL (150-450); PROTHROMBIN TIME 14.4 SEC (11.4-15.4); RED BLOOD COUNT 2.23 10^6/uL (4.35-5.55); RED CELL DISTRIBUTION WIDTH 16.2 % (11.5-14.0); SEGMENTED NEUTROPHILS % (AUTO) 65.1 % (42-78); TOTAL CELLS COUNTED % (AUTO) 100 %; WHITE BLOOD COUNT 6.6 10^3/uL (4.0-10.5)
[2020-02-05 04:33] LABS: PARTIAL THROMBOPLASTIN TIME 39.6 SEC (23.5-35.8)
[2020-02-05 04:41] LABS: ANION GAP 10 (5-19); BLOOD UREA NITROGEN 50 mg/dL (7-20); CARBON DIOXIDE 18 mmol/L (22-30); CHLORIDE 112 mmol/L (98-107); GLUCOSE 110 mg/dL (75-110); POTASSIUM 4.7 mmol/L (3.6-5.0)
[2020-02-05 05:00] LABS: HEMOGLOBIN 6.2 g/dL (13.5-17.0)
[2020-02-05] MEDS ORDERED: NORMAL SALINE 250 ML IV PRN ×2 (05:24)
[2020-02-05] MEDS: INSULIN LISPRO 100 UNIT/ML 3 ML VIAL SUBCUT SCH ×4 (08:50→21:13)
--- NOTE | 2020-02-05 11:26 | PDOC PROGRESS REPORT ---
Subjective Date:: 02/05/20 Subjective:: History of Present Illness: ZACHARY HALL is a 69 year old male who has history of hypertension, diabetes, chronic kidney disease and recent diagnosis of prostate cancer. Patient currently was staying at [facility] for rehabilitation. He was noted to be weak and deconditioned which has been progressive over the past few days. Apparently hemoglobin was down in the mid 5. He was transferred to the emergency room for an evaluation. Patient denies hematuria, hematemesis, melena or hematochezia. No active bleeding. Hemoglobin today is 5.4. Patient was ordered for transfusion by ER physician. His creatinine is also elevated at 3.14 which is above his baseline of 2.0. Patient follows with Dr. Skinner of nephrology. Interval history: 02/05/2020: Patient was seen and examined. His hemoglobin improved to 6.2 after 1 unit. He is getting 2 units more today. Renal function has improved slightly today. Reason For Visit: ANEMIA Physical Exam Vital Signs: Temp Pulse Resp BP Pulse Ox 97.6 F 65 16 160/83 H 100 02/05/20 10:14 02/05/20 10:14 02/05/20 10:14 02/05/20 10:14 02/05/20 10:14 Intake & Output 02/04/20 02/05/20 02/06/20 06:59 06:59 06:59 Intake Total 540 350 Output Total 700 Balance -160 350 Weight 213 lb 13.574 oz Exam: General appearance: PRESENT: no acute distress, cooperative Head exam: PRESENT: atraumatic, normocephalic Eye exam: PRESENT: EOMI. ABSENT: nystagmus Mouth exam: PRESENT: moist, neck supple Neck exam: ABSENT: meningismus, tenderness, tracheostomy Respiratory exam: PRESENT: clear to auscultation francisca, unlabored. ABSENT: accessory muscle use Cardiovascular exam: PRESENT: RRR, +S1, +S2 GI/Abdominal exam: PRESENT: normal bowel sounds, soft. ABSENT: tenderness Extremities exam: ABSENT: pedal edema Neurological exam: PRESENT: alert, awake, oriented to person, oriented to place, oriented to time, oriented to situation Results Laboratory Results: 02/05/20 04:15 02/05/20 04:15 02/04/20 02/04/20 02/04/20 15:06 15:06 15:06 WBC 6.4 RBC 2.00 L Hgb 5.6 L Hct 17.0 L MCV 85 MCH 27.9 MCHC 32.9 RDW 16.4 H Plt Count 196 Seg Neutrophils % 67.7 Retic Count (auto) Sodium 139.1 Potassium 4.8 Chloride 110 H Carbon Dioxide 21 L Anion Gap 8 BUN 52 H Creatinine 3.14 H Est GFR ( Amer) 24 L Glucose 112 H Calcium 9.1 Iron TIBC % Saturation Ferritin Vitamin B12 Blood Type O POSITIVE Antibody Screen NEGATIVE 02/04/20 02/04/20 02/05/20 15:06 20:14 04:15 WBC RBC Hgb Hct MCV MCH MCHC RDW Plt Count Seg Neutrophils % Retic Count (auto) 2.99 H Sodium 140.4 Potassium 4.7 Chloride 112 H Carbon Dioxide 18 L Anion Gap 10 BUN 50 H Creatinine 2.82 H Est GFR ( Amer) 27 L Glucose 110 Calcium 9.0 Iron 13.7 L TIBC 250 % Saturation 5 Ferritin 170.00 Vitamin B12 511.0 Blood Type Antibody Screen 02/05/20 04:15 WBC 6.6 RBC 2.23 L Hgb 6.2 L Hct 18.9 L MCV 85 MCH 27.9 MCHC 32.9 RDW 16.2 H Plt Count 199 Seg Neutrophils % 65.1 Retic Count (auto) Sodium Potassium Chloride Carbon Dioxide Anion Gap BUN Creatinine Est GFR ( Amer) Glucose Calcium Iron TIBC % Saturation Ferritin Vitamin B12 Blood Type Antibody Screen Assessment and Plan - Diagnosis (1) Symptomatic anemia Is this a current diagnosis for this admission?: Yes (2) Acute renal failure Is this a current diagnosis for this admission?: Yes (3) CKD (chronic kidney disease) stage 3, GFR 30-59 ml/min Qualifiers: Chronic kidney disease stage 3 subtype: stage 3b (GFR 30-44) Qualified Code(s): N18.32 - Chronic kidney disease, stage 3b Is this a current diagnosis for this admission?: Yes (4) Diabetes Qualifiers: Diabetes mellitus type: type 2 Is this a current diagnosis for this admission?: Yes (5) Hypertension Is this a current diagnosis for this admission?: Yes (6) Prostate cancer Is this a current diagnosis for this admission?: Yes - Plan Summary Summary: (1) Symptomatic anemia Unclear etiology. Patient had reportedly suffered from hematuria after cystoscopy that was done recently. But he has not had any bleeding since then. No evidence of GI bleeding. Continue to transfuse as needed. Monitor hemoglobin carefully. Anemia profile shows signs of iron deficiency. (2) Acute renal failure Continue IV fluids. We consulted his house wirer. Monitor creatinine and electrolytes carefully. (3) CKD (chronic kidney disease) stage 3, GFR 30-59 ml/min Continue in acute failure. (4) Diabetes Continue to hold oral medications. Hemoglobin A1c 4.4. Monitor glucose levels. (5) Hypertension Continue home meds. Monitor blood pressure. (6) Prostate cancer Follows with urology as outpatient. - Time Anticipated Discharge Disposition: Home, Self Care Anticipated Discharge Timeframe: within 72 hours
[2020-02-05] MEDS: NORMAL SALINE 1000 ML 1,000 ML IV PRN ×2 (13:52→22:57)
[2020-02-06] MEDS ORDERED: HYDRALAZINE HCL INJ/PF 20 MG/1 ML SDV IV ONE (00:45)
[2020-02-06] MEDS: LABETALOL HCL 200 MG TABLET PO SCH ×4 (00:57→21:40)
[2020-02-06] MEDS: AMLODIPINE BESYLATE 10 MG TABLET PO SCH ×3 (00:57→21:39)
[2020-02-06] MEDS ORDERED: HYDRALAZINE HCL INJ/PF 20 MG/1 ML SDV ONE (01:00)
[2020-02-06] MEDS: HYDRALAZINE HCL 50 MG TABLET PO SCH ×3 (05:42→21:38)
[2020-02-06] MEDS: CLONIDINE HCL 0.1 MG TABLET PO SCH ×3 (05:43→21:38)
[2020-02-06 05:50] LABS: HEMATOCRIT 24.5 % (37.9-51.0); HEMOGLOBIN 8.2 g/dL (13.5-17.0); MEAN CORPUSCULAR HEMOGLOBIN 27.9 pg (27.0-33.4); MEAN CORPUSCULAR HGB CONC 33.6 g/dL (32.0-36.0); MEAN CORPUSCULAR VOLUME 83 fl (80-97); PLATELET COUNT 182 10^3/uL (150-450); RED BLOOD COUNT 2.95 10^6/uL (4.35-5.55); RED CELL DISTRIBUTION WIDTH 16.9 % (11.5-14.0); WHITE BLOOD COUNT 8.8 10^3/uL (4.0-10.5)
[2020-02-06 06:29] LABS: ANION GAP 11 (5-19); BLOOD UREA NITROGEN 36 mg/dL (7-20); CALCIUM 8.9 mg/dL (8.4-10.2); CARBON DIOXIDE 18 mmol/L (22-30); CHLORIDE 112 mmol/L (98-107); GLUCOSE 101 mg/dL (75-110); POTASSIUM 4.3 mmol/L (3.6-5.0)
[2020-02-06] MEDS: INSULIN LISPRO 100 UNIT/ML 3 ML VIAL SUBCUT SCH ×4 (08:08→21:39)
[2020-02-06] MEDS: FUROSEMIDE 20 MG TABLET PO SCH (09:06)
[2020-02-06] MEDS: GLIMEPIRIDE 1 MG TABLET PO SCH (10:19)
[2020-02-06] MEDS: DOCUSATE SODIUM 100 MG CAPSULE PO SCH ×2 (10:19→17:41)
[2020-02-06] MEDS: FINASTERIDE 5 MG TABLET PO SCH (10:20)
[2020-02-06] MEDS: FERROUS SULFATE 325 MG TABLET PO SCH ×2 (10:20→17:41)
--- NOTE | 2020-02-06 12:35 | PDOC CONSULTATION ---
Consultation Consult Date: 02/06/20 Provider Consulted: Lloyd MCCONNELL Consult reason:: MARIZA on CKD stage III/IV. History of Present Illness Admission Date/PCP: 02/04/20 16:26 ELLI PANCHAL MD History of Present Illness: ZACHARY HALL is a 69 year old male with a past medical history of diabetes mellitus, hypertension, BPH, old CVA and recent diagnosis of ? cancer of the prostate following with urology was admitted with history of progressive weakness. Patient has got very poor memory and speech difficulties resulting from his old CVA that he is not able to give me a proper exacting history. Therefore chart review was done and discussions done with the treating nurse as well. He states that he had some procedure done possibly on his bladder/prostate by the urologist approximately 2 weeks ago. Following that he has been seeing intermittent hematuria without any history of dysuria or abdominal pains, fever or chills. He also admits to having rather anorexia with generalized poor intake for the last 1 week or so. He also felt quite weak and apparently came to the ER where he was found to have a low hemoglobin of 5+ with acute on chronic kidney disease with a creatinine of 3+ as compared to baseline of around 2. Patient has received blood transfusions and overall he feels better. He has incontinence of urine and still has been passing intermittent hematuria with sometimes clot as described by the treating nurse was at the bedside. He however denies any history of obstructive urination. No history to indicate GI bleed. He denies any history of upper abdominal pains GI bleeds or orthostasis. Labs and medications were reviewed.He has had steady improving creatinine from 3+ to current just over 2. He overall feels better than when he came in.Need to procure notes from urology to know about procedures and diagnosis made in the last few weeks. Past Medical History Cardiac Medical History: Reports: Hyperlipidemia, Hypertension-primary Neurological Medical History: Reports: Ischemic CVA Endocrine Medical History: Reports: Diabetes Mellitus Type 2 Renal/ Medical History: Reports: Chronic Kidney Disease Stage III Malignancy Medical History: Reports: Other - Cancer of the prostate Psychiatric Medical History: Denies: Depression Social History Smoking Status: Former Smoker Electronic Cigarette use?: No Family History Parental Family History Reviewed: Yes - Negative for ESRD Children Family History Reviewed: Yes Sibling(s) Family History Reviewed.: Yes - Had a brother with ESRD on dialysis. Medication/Allergy Home Medications: Amlodipine Besylate [Norvasc 10 mg Tablet] 10 mg PO Q12 02/05/20 Clonidine HCl 0.3 mg PO Q8 02/05/20 Docusate Sodium [Colace 100 mg Capsule] 100 mg PO BID 02/05/20 Ferrous Sulfate [Feosol 325 mg Tablet] 325 mg PO BID 02/05/20 Finasteride [Proscar 5 mg Tablet] 5 mg PO DAILY 02/05/20 Furosemide [Lasix 20 mg Tablet] 10 mg PO QAM 02/05/20 Glimepiride [Amaryl] 2 mg PO DAILY 02/05/20 Hydralazine HCl [Apresoline 50 mg Tablet] 100 mg PO Q8 02/05/20 Isosorbide Dinitrate [Isordil Titradose 20 Mg Tablet] 20 mg PO Q8 02/05/20 Labetalol HCl [Normodyne 200 mg Tablet] 200 mg PO Q8 02/05/20 Losartan Potassium [Cozaar 50 mg Tablet] 100 mg PO DAILY 02/05/20 Rosuvastatin Calcium [Crestor] 40 mg PO DAILY 02/05/20 Terazosin HCl 5 mg PO QHS 02/05/20 Allergies/Adverse Reactions: No Known Allergies Allergy (Verified 02/04/20 14:31) Review of Systems Constitutional: PRESENT: anorexia, fatigue, weakness. ABSENT: chills, fever(s), headache(s), night sweats Nose, Mouth, and Throat: ABSENT: mouth pain, sore throat Cardiovascular: ABSENT: chest pain, dyspnea on exertion, edema, orthropnea, palpitations Respiratory: ABSENT: hemoptysis Gastrointestinal: ABSENT: abdominal pain, coffee ground emesis, diarrhea, dysphagia, heartburn, hematemesis Genitourinary: PRESENT: hematuria. ABSENT: difficulty urinating, dysuria Musculoskeletal: ABSENT: deformity, joint swelling Integumentary: ABSENT: rash Neurological: PRESENT: abnormal speech. ABSENT: abnormal movements, focal wea kness, frequent falls, numbness, paresthesias Psychiatric: ABSENT: hallucinations Hematologic/Lymphatic: ABSENT: easy bruising, lymphadenopathy Physical Exam Vital Signs: Temp Pulse Resp BP Pulse Ox 98.5 F 73 19 130/59 H 100 02/06/20 08:00 02/06/20 08:00 02/06/20 08:00 02/06/20 08:00 02/06/20 08:00 Intake & Output 02/05/20 02/06/20 02/07/20 06:59 06:59 06:59 Intake Total 1540 3001 Output Total 700 2680 Balance 840 321 Weight 97 kg 95.5 kg General appearance: PRESENT: no acute distress Eye exam: PRESENT: EOMI, PERRLA. ABSENT: scleral icterus Ear exam: PRESENT: normal external ear exam Mouth exam: PRESENT: moist, neck supple Respiratory exam: PRESENT: clear to auscultation francisca, decreased breath sounds. ABSENT: crackles Cardiovascular exam: PRESENT: +S1, +S2 GI/Abdominal exam: PRESENT: normal bowel sounds, soft. ABSENT: organomegaly, tenderness Extremities exam: ABSENT: pedal edema Neurological exam: PRESENT: alert, awake, oriented to person, oriented to place Psychiatric exam: PRESENT: appropriate affect Skin exam: ABSENT: cyanosis, erythema, mottled, rash Results Laboratory Results: 02/06/20 04:48 02/06/20 04:48 02/06/20 02/06/20 04:48 04:48 WBC 8.8 RBC 2.95 L Hgb 8.2 L Hct 24.5 L MCV 83 MCH 27.9 MCHC 33.6 RDW 16.9 H Plt Count 182 Sodium 140.7 Potassium 4.3 Chloride 112 H Carbon Dioxide 18 L Anion Gap 11 BUN 36 H Creatinine 2.34 H Est GFR ( Amer) 34 L Glucose 101 Calcium 8.9 Assessment & Plan - Diagnosis (1) Hematuria Plan: Patient apparently has been having hematuria since some procedure was done by the urologist in the bladder/prostate which the patient is unsure as patient is got old CVA with residual deficits and unable to give a proper history. Still continues to have active hematuria including clots though it seems to be a bit less currently the patient. Patient obviously had symptomatic anemia presumably from his active hematuria and has received transfusions and presently stable. Monitor.Need to get notes from urologist office to see what exactly has been going on and has to keep them informed so that they can follow up on him as soon as he is discharged.Currently he has no indwelling catheter/Quintero's. He denies any obstructive symptoms. He is obviously incontinent. (2) Acute renal failure Is this a current diagnosis for this admission?: Yes Plan: Acute on chronic kidney disease. Patient presented with a creatinine of 3+ dropping nicely to just over 2 which is his baseline. Continue on current management including gentle IV hydration. Patient has got an apparent history of cancer of the prostate and following with urology. We will try to obtain notes to see what sort of treatment he had received from them as patient unable to give a proper history. No indications for renal replacements. (3) Symptomatic anemia Is this a current diagnosis for this admission?: Yes Plan: From his active hematuria and patient posttransfusion. Monitor for stability. (4) Diabetes Qualifiers: Diabetes mellitus type: type 2 Is this a current diagnosis for this admission?: Yes Plan: As per hospitalist. (5) 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 Plan: With residual deficits including dysarthria and poor memory. (6) Hypertension Is this a current diagnosis for this admission?: Yes Plan: Controlled. Monitor. (7) Cancer of prostate Plan: ? . As per patient history with recent procedures done according to the patient. Try to obtain notes from urology.
[2020-02-06] MEDS: NORMAL SALINE 1000 ML 1,000 ML IV PRN (17:41)
--- NOTE | 2020-02-06 18:19 | PDOC PROGRESS REPORT ---
Subjective Subjective:: Per Previous Physician: "ZACHARY HALL is a 69 year old male who has history of hypertension, diabetes, chronic kidney disease and recent diagnosis of prostate cancer. Patient currently was staying at [facility] for rehabilitation. He was noted to be weak and deconditioned which has been progressive over the past few days. Apparently hemoglobin was down in the mid 5. He was transferred to the emergency room for an evaluation. Patient denies hematuria, hematemesis, melena or hematochezia. No active bleeding. Hemoglobin today is 5.4. Patient was ordered for transfusion by ER physician. His creatinine is also elevated at 3.14 which is above his baseline of 2.0. Patient follows with Dr. Skinner of nephrology. Interval history: 02/05/2020: Patient was seen and examined. His hemoglobin improved to 6.2 after 1 unit. He is getting 2 units more today. Renal function has improved slightly today." 02/06/2020 Renal function appears to approaching his baseline which is approximately 2 based on previous records. Hemoglobin with significant improvement after getting a total of 3 units PRBC. Unfortunately, he has been having hematuria for approximately 3 weeks according to the patient. He states this started after a urologic procedure. He cannot remember his urologist name or the practice that he goes to and he states his may notice information. I asked him if he is ever had a stroke and he initially said no and then stated he thinks he may have had one before. I will reach out to his tomorrow in order to get his urologist name so that I can call the practice and get some more information. I believe the patient may benefit from transfer to a facility that has urology services. We will start CBI to make sure he does not obstruct with a blood clot as he is high risk to do so given the large amount of blood seen in his urine currently. Reason For Visit: ANEMIA Physical Exam Vital Signs: Temp Pulse Resp BP Pulse Ox 98.6 F 64 17 160/77 H 100 02/06/20 12:00 02/06/20 12:00 02/06/20 12:00 02/06/20 12:00 02/06/20 12:00 Intake & Output 02/05/20 02/06/20 02/07/20 06:59 06:59 06:59 Intake Total 1540 4001 236 Output Total 700 2680 600 Balance 840 1321 -364 Weight 97 kg 95.5 kg Exam: General appearance: PRESENT: no acute distress, well-developed, well-nourished Head exam: PRESENT: atraumatic, normocephalic Eye exam: PRESENT: conjunctiva pink. ABSENT: scleral icterus Mouth exam: PRESENT: moist Respiratory exam: PRESENT: clear to auscultation francisca. ABSENT: rales, rhonchi, wheezes Cardiovascular exam: PRESENT: RRR. ABSENT: diastolic murmur, rubs, systolic murmur GI/Abdominal exam: PRESENT: normal bowel sounds, soft. ABSENT: distended, guarding, mass, organolmegaly, rebound, tenderness Neurological exam: PRESENT: alert, awake, oriented to person, oriented to place Psychiatric exam: PRESENT: appropriate affect, normal mood Skin exam: PRESENT: dry, intact, warm : Keanu hematuria in bedside urinal Results Laboratory Results: 02/06/20 04:48 02/06/20 04:48 02/06/20 02/06/20 04:48 04:48 WBC 8.8 RBC 2.95 L Hgb 8.2 L Hct 24.5 L MCV 83 MCH 27.9 MCHC 33.6 RDW 16.9 H Plt Count 182 Sodium 140.7 Potassium 4.3 Chloride 112 H Carbon Dioxide 18 L Anion Gap 11 BUN 36 H Creatinine 2.34 H Est GFR ( Amer) 34 L Glucose 101 Calcium 8.9 Assessment and Plan - Diagnosis (1) Acute renal failure Is this a current diagnosis for this admission?: Yes (2) Cancer of prostate Is this a current diagnosis for this admission?: Yes (3) Hematuria Is this a current diagnosis for this admission?: Yes (4) Symptomatic anemia Is this a current diagnosis for this admission?: Yes (5) CKD (chronic kidney disease) stage 3, GFR 30-59 ml/min Qualifiers: Chronic kidney disease stage 3 subtype: stage 3b (GFR 30-44) Qualified Code(s): N18.32 - Chronic kidney disease, stage 3b Is this a current diagnosis for this admission?: Yes (6) 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 Is this a current diagnosis for this admission?: Yes (7) Hypertension Is this a current diagnosis for this admission?: Yes (8) Acute blood loss anemia Is this a current diagnosis for this admission?: Yes - Plan Summary Summary: (1) Symptomatic anemia Per Previous Physician: "Unclear etiology. Patient had reportedly suffered from hematuria after cystoscopy that was done recently. But he has not had any bleeding since then. No evidence of GI bleeding. Continue to transfuse as needed. Monitor hemoglobin carefully. Anemia profile shows signs of iron deficiency." Due to hematuria from recent urologic procedure We will reach out to patient's urologist, may require transfer to outside hospital with urology services CBI Trend hemoglobin Transfused 3 units PRBC total (2) Acute renal failure Per Previous Physician: "Continue IV fluids. We consulted his senior marketing engineer. Monitor creatinine and electrolytes carefully." Baseline creatinine approximately 2 according to records Trend BMP (3) CKD (chronic kidney disease) stage 3, GFR 30-59 ml/min (4) Diabetes Per Previous Physician: "Continue to hold oral medications. Hemoglobin A1c 4.4. Monitor glucose levels." (5) Hypertension Continue home meds. Monitor blood pressure. (6) Prostate cancer Follows with urology as outpatient. (7) acute blood loss anemia - Time Time Spent with patient: 15-24 minutes Anticipated Discharge Disposition: Tertiary Anticipated Discharge Timeframe: within 48 hours - Inpatient Certification Based on my medical assessment, after consideration of the patient's comorbidities, presenting symptoms, or acuity I expect that the services needed warrant INPATIENT care.: Yes I certify that my determination is in accordance with my understanding of Medicare's requirements for reasonable and necessary INPATIENT services [42 CFR 412.3e].: Yes Medical Necessity: Significant Comorbidiites Make Outpatient Treatment Too Risky, Need Close Monitoring Due to Risk of Patient Decompensation, Risk of Complication if Not Cared For in Hospital, Risk of Diagnosis Which Will Require Inpatient Eval/Care/Monitoring
[2020-02-06] MEDS: DOXAZOSIN MESYLATE 2 MG TABLET PO SCH (21:38)
[2020-02-06] MEDS: ATORVASTATIN CALCIUM 80 MG TABLET PO SCH (21:38)
[2020-02-07] MEDS: NORMAL SALINE 1000 ML 1,000 ML IV PRN ×2 (02:07→10:30)
[2020-02-07] MEDS: CLONIDINE HCL 0.1 MG TABLET PO SCH ×3 (05:26→21:35)
[2020-02-07] MEDS: HYDRALAZINE HCL 50 MG TABLET PO SCH ×3 (05:26→21:35)
[2020-02-07] MEDS: ISOSORBIDE DINITRATE 20 MG TABLET PO SCH ×3 (05:27→21:36)
[2020-02-07] MEDS: LABETALOL HCL 200 MG TABLET PO SCH ×3 (05:27→21:36)
[2020-02-07] MEDS: INSULIN LISPRO 100 UNIT/ML 3 ML VIAL SUBCUT SCH ×4 (07:36→21:37)
[2020-02-07] MEDS: FUROSEMIDE 20 MG TABLET PO SCH (08:17)
[2020-02-07] MEDS: DOCUSATE SODIUM 100 MG CAPSULE PO SCH ×2 (10:29→17:53)
[2020-02-07] MEDS: GLIMEPIRIDE 1 MG TABLET PO SCH (10:29)
[2020-02-07] MEDS: FERROUS SULFATE 325 MG TABLET PO SCH ×2 (10:29→17:53)
[2020-02-07] MEDS: LOSARTAN POTASSIUM 50 MG TABLET PO SCH (10:29)
[2020-02-07] MEDS: FINASTERIDE 5 MG TABLET PO SCH (10:29)
[2020-02-07] MEDS: AMLODIPINE BESYLATE 10 MG TABLET PO SCH ×2 (10:29→21:36)
[2020-02-07 10:31] LABS: ABSOLUTE BASOPHILS # (AUTO) 0.1 10^3/uL (0.0-0.2); ABSOLUTE EOSINOPHILS # (AUTO) 0.2 10^3/uL (0.0-0.6); ABSOLUTE MONOCYTES (AUTO) 0.4 10^3/uL (0.1-1.4); ABSOLUTE NEUT (AUTO) 4.5 10^3/uL (1.7-8.2); EOSINOPHILS % (AUTO) 3.6 % (0-6); HEMATOCRIT 21.6 % (37.9-51.0); LYMPHOCYTES % (AUTO) 15.6 % (13-45); MEAN CORPUSCULAR HEMOGLOBIN 27.8 pg (27.0-33.4); MEAN CORPUSCULAR HGB CONC 33.4 g/dL (32.0-36.0); MEAN CORPUSCULAR VOLUME 83 fl (80-97); PLATELET COUNT 179 10^3/uL (150-450); RED BLOOD COUNT 2.59 10^6/uL (4.35-5.55); RED CELL DISTRIBUTION WIDTH 16.9 % (11.5-14.0); SEGMENTED NEUTROPHILS % (AUTO) 72.8 % (42-78); TOTAL CELLS COUNTED % (AUTO) 100 %; WHITE BLOOD COUNT 6.1 10^3/uL (4.0-10.5)
[2020-02-07 10:34] LABS: HEMOGLOBIN 7.2 g/dL (13.5-17.0)
[2020-02-07 10:51] LABS: ANION GAP 7 (5-19); BLOOD UREA NITROGEN 30 mg/dL (7-20); CALCIUM 8.5 mg/dL (8.4-10.2); CARBON DIOXIDE 21 mmol/L (22-30); CHLORIDE 110 mmol/L (98-107); GLUCOSE 117 mg/dL (75-110); POTASSIUM 4.2 mmol/L (3.6-5.0)
--- NOTE | 2020-02-07 18:13 | PDOC PROGRESS REPORT ---
Subjective Subjective:: Per Previous Physician: "ZACHARY HALL is a 69 year old male who has history of hypertension, diabetes, chronic kidney disease and recent diagnosis of prostate cancer. Patient currently was staying at [facility] for rehabilitation. He was noted to be weak and deconditioned which has been progressive over the past few days. Apparently hemoglobin was down in the mid 5. He was transferred to the emergency room for an evaluation. Patient denies hematuria, hematemesis, melena or hematochezia. No active bleeding. Hemoglobin today is 5.4. Patient was ordered for transfusion by ER physician. His creatinine is also elevated at 3.14 which is above his baseline of 2.0. Patient follows with Dr. Skinner of nephrology. Interval history: 02/05/2020: Patient was seen and examined. His hemoglobin improved to 6.2 after 1 unit. He is getting 2 units more today. Renal function has improved slightly today." 02/06/2020 Renal function appears to approaching his baseline which is approximately 2 based on previous records. Hemoglobin with significant improvement after getting a total of 3 units PRBC. Unfortunately, he has been having hematuria for approximately 3 weeks according to the patient. He states this started after a urologic procedure. He cannot remember his urologist name or the practice that he goes to and he states his may notice information. I asked him if he is ever had a stroke and he initially said no and then stated he thinks he may have had one before. I will reach out to his tomorrow in order to get his urologist name so that I can call the practice and get some more information. I believe the patient may benefit from transfer to a facility that has urology services. We will start CBI to make sure he does not obstruct with a blood clot as he is high risk to do so given the large amount of blood seen in his urine currently. 02/07/2020 Per nursing, patient has not had any significant hematuria or clots in his urine overnight. They also deny any urinary obstruction. We will monitor the patient today and see if he has any further hematuria. Patient refused Quintero catheter and CBI overnight. We can hold off on this provided he continues to have little or no hematuria. If his urine remains clear, potentially can be discharged home tomorrow although I did present 1 caveat to the patient that he absolutely must follow-up with his urologist within 1 week of discharge and he agreed to this. His hemoglobin is lower although he has been getting IV fluids presumably for MARIZA and I have stopped this and the creatinine is normalizing. Patient has no new complaints today. Reason For Visit: ANEMIA Physical Exam Vital Signs: Temp Pulse Resp BP Pulse Ox 97.4 F 65 17 126/61 H 100 02/07/20 10:50 02/07/20 10:50 02/07/20 10:50 02/07/20 10:50 02/07/20 10:50 Intake & Output 02/06/20 02/07/20 02/08/20 06:59 06:59 06:59 Intake Total 4001 1921 1920 Output Total 2680 2500 275 Balance 1321 -579 1645 Weight 95.5 kg 95.5 kg Exam: General appearance: PRESENT: no acute distress, well-developed, well-nourished, states his hematuria has stopped Head exam: PRESENT: atraumatic, normocephalic Eye exam: PRESENT: conjunctiva pink. ABSENT: scleral icterus Mouth exam: PRESENT: moist Respiratory exam: PRESENT: clear to auscultation francisca. ABSENT: rales, rhonchi, wheezes Cardiovascular exam: PRESENT: RRR. ABSENT: diastolic murmur, rubs, systolic murmur GI/Abdominal exam: PRESENT: normal bowel sounds, soft. ABSENT: distended, guarding, mass, organolmegaly, rebound, tenderness Neurological exam: PRESENT: alert, awake, oriented to person, oriented to place Psychiatric exam: PRESENT: appropriate affect, normal mood Skin exam: PRESENT: dry, intact, warm : There is no bedside urinal present today Results Laboratory Results: 02/07/20 10:20 02/07/20 10:20 02/07/20 02/07/20 10:20 10:20 WBC 6.1 RBC 2.59 L Hgb 7.2 L Hct 21.6 L MCV 83 MCH 27.8 MCHC 33.4 RDW 16.9 H Plt Count 179 Seg Neutrophils % 72.8 Sodium 137.5 Potassium 4.2 Chloride 110 H Carbon Dioxide 21 L Anion Gap 7 BUN 30 H Creatinine 2.02 H Est GFR ( Amer) 40 L Glucose 117 H Calcium 8.5 Assessment and Plan - Diagnosis (1) Acute renal failure Is this a current diagnosis for this admission?: Yes (2) Cancer of prostate Is this a current diagnosis for this admission?: Yes (3) Hematuria Is this a current diagnosis for this admission?: Yes (4) Symptomatic anemia Is this a current diagnosis for this admission?: Yes (5) CKD (chronic kidney disease) stage 3, GFR 30-59 ml/min Qualifiers: Chronic kidney disease stage 3 subtype: stage 3b (GFR 30-44) Qualified Code(s): N18.32 - Chronic kidney disease, stage 3b Is this a current diagnosis for this admission?: Yes (6) 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 Is this a current diagnosis for this admission?: Yes (7) Hypertension Is this a current diagnosis for this admission?: Yes (8) Acute blood loss anemia Is this a current diagnosis for this admission?: Yes - Plan Summary Summary: (1) Symptomatic anemia Per Previous Physician: "Unclear etiology. Patient had reportedly suffered from hematuria after cystoscopy that was done recently. But he has not had any bleeding since then. No evidence of GI bleeding. Continue to transfuse as needed. Monitor he moglobin carefully. Anemia profile shows signs of iron deficiency." Due to hematuria from recent urologic procedure We will reach out to patient's urologist, may require transfer to outside hospital with urology services CBI and Quintero refused by patient Trend hemoglobin Transfused 3 units PRBC total Urine cleared overnight on 02/05 Needs prompt follow-up outpatient with urology, discussed with patient (2) Acute renal failure Per Previous Physician: "Continue IV fluids. We consulted his hogshead weigher. Monitor creatinine and electrolytes carefully." Baseline creatinine approximately 2 according to records Trend BMP (3) CKD (chronic kidney disease) stage 3, GFR 30-59 ml/min (4) Diabetes Per Previous Physician: "Continue to hold oral medications. Hemoglobin A1c 4.4. Monitor glucose levels." (5) Hypertension Continue home meds. Monitor blood pressure. (6) Prostate cancer Follows with urology as outpatient. (7) acute blood loss anemia - Time Time Spent with patient: 15-24 minutes Medications reviewed and adjusted accordingly: Yes Anticipated Discharge Disposition: Home, Self Care Anticipated Discharge Timeframe: within 24 hours - Inpatient Certification Based on my medical assessment, after consideration of the patient's comorbidities, presenting symptoms, or acuity I expect that the services needed warrant INPATIENT care.: Yes I certify that my determination is in accordance with my understanding of Medicare's requirements for reasonable and necessary INPATIENT services [42 CFR 412.3e].: Yes Medical Necessity: Significant Comorbidiites Make Outpatient Treatment Too Risky, Need Close Monitoring Due to Risk of Patient Decompensation, Risk of Complication if Not Cared For in Hospital, Risk of Diagnosis Which Will Require Inpatient Eval/Care/Monitoring
[2020-02-07] MEDS: DOXAZOSIN MESYLATE 2 MG TABLET PO SCH (21:35)
[2020-02-07] MEDS: ATORVASTATIN CALCIUM 80 MG TABLET PO SCH (21:36)
[2020-02-08] MEDS: HYDRALAZINE HCL 50 MG TABLET PO SCH ×3 (05:13→21:14)
[2020-02-08] MEDS: CLONIDINE HCL 0.1 MG TABLET PO SCH ×3 (05:13→21:13)
[2020-02-08] MEDS: LABETALOL HCL 200 MG TABLET PO SCH ×3 (05:14→21:13)
[2020-02-08] MEDS: ISOSORBIDE DINITRATE 20 MG TABLET PO SCH ×3 (05:14→21:14)
[2020-02-08 06:00] LABS: ABSOLUTE BASOPHILS # (AUTO) 0.1 10^3/uL (0.0-0.2); ABSOLUTE EOSINOPHILS # (AUTO) 0.3 10^3/uL (0.0-0.6); ABSOLUTE LYMPHOCYTES (AUTO) 1.5 10^3/uL (0.5-4.7); ABSOLUTE MONOCYTES (AUTO) 0.4 10^3/uL (0.1-1.4); ABSOLUTE NEUT (AUTO) 4.5 10^3/uL (1.7-8.2); BASOPHILS % (AUTO) 0.9 % (0-2); EOSINOPHILS % (AUTO) 3.7 % (0-6); LYMPHOCYTES % (AUTO) 22.1 % (13-45); MEAN CORPUSCULAR HEMOGLOBIN 27.7 pg (27.0-33.4); MEAN CORPUSCULAR HGB CONC 32.9 g/dL (32.0-36.0); MEAN CORPUSCULAR VOLUME 84 fl (80-97); MONOCYTES % (AUTO) 6.4 % (3-13); PLATELET COUNT 185 10^3/uL (150-450); SEGMENTED NEUTROPHILS % (AUTO) 66.9 % (42-78); TOTAL CELLS COUNTED % (AUTO) 100 %; WHITE BLOOD COUNT 6.7 10^3/uL (4.0-10.5)
[2020-02-08 06:06] LABS: ANION GAP 7 (5-19); BLOOD UREA NITROGEN 31 mg/dL (7-20); CALCIUM 8.7 mg/dL (8.4-10.2); CARBON DIOXIDE 19 mmol/L (22-30); CHLORIDE 111 mmol/L (98-107); GLUCOSE 91 mg/dL (75-110); POTASSIUM 4.2 mmol/L (3.6-5.0)
[2020-02-08 06:17] LABS: HEMOGLOBIN 6.9 g/dL (13.5-17.0)
[2020-02-08] MEDS: INSULIN LISPRO 100 UNIT/ML 3 ML VIAL SUBCUT SCH ×4 (07:19→21:30)
[2020-02-08] MEDS: FUROSEMIDE 20 MG TABLET PO SCH (08:28)
[2020-02-08] MEDS: FINASTERIDE 5 MG TABLET PO SCH (11:41)
[2020-02-08] MEDS: LOSARTAN POTASSIUM 50 MG TABLET PO SCH (11:41)
[2020-02-08] MEDS: GLIMEPIRIDE 1 MG TABLET PO SCH (11:43)
[2020-02-08] MEDS: AMLODIPINE BESYLATE 10 MG TABLET PO SCH ×2 (11:44→21:14)
[2020-02-08] MEDS: FERROUS SULFATE 325 MG TABLET PO SCH ×2 (11:44→17:23)
[2020-02-08] MEDS: DOCUSATE SODIUM 100 MG CAPSULE PO SCH ×2 (11:44→17:23)
[2020-02-08 12:23] LABS: ABSOLUTE EOSINOPHILS # (AUTO) 0.2 10^3/uL (0.0-0.6); ABSOLUTE LYMPHOCYTES (AUTO) 1.3 10^3/uL (0.5-4.7); ABSOLUTE MONOCYTES (AUTO) 0.4 10^3/uL (0.1-1.4); ABSOLUTE NEUT (AUTO) 4.1 10^3/uL (1.7-8.2); BASOPHILS % (AUTO) 0.8 % (0-2); EOSINOPHILS % (AUTO) 3.5 % (0-6); HEMATOCRIT 21.3 % (37.9-51.0); LYMPHOCYTES % (AUTO) 20.7 % (13-45); MEAN CORPUSCULAR HEMOGLOBIN 27.4 pg (27.0-33.4); MEAN CORPUSCULAR VOLUME 83 fl (80-97); MONOCYTES % (AUTO) 6.4 % (3-13); PLATELET COUNT 187 10^3/uL (150-450); RED BLOOD COUNT 2.57 10^6/uL (4.35-5.55); RED CELL DISTRIBUTION WIDTH 17.3 % (11.5-14.0); SEGMENTED NEUTROPHILS % (AUTO) 68.6 % (42-78); TOTAL CELLS COUNTED % (AUTO) 100 %
--- NOTE | 2020-02-08 16:25 | PDOC PROGRESS REPORT ---
Subjective Date:: 02/08/20 Reason For Visit: Patient currently doing better than when he was admitted. He has no further hematuria is looking at his urine by his bedside. He has no abdominal pains, fever or chills. Labs and medications were reviewed. I was able to get notes from the patient's current urologist Dr. Monty Rebolledo who he saw on 01/26. However prior to that patient was apparently admitted to [facility] on ? 01/04/20 and then underwent a traumatic Quintero catheter placement which was difficult. In the process he had a false passage in his urethra which was discovered on his transfer to [facility] in [place], where he was seen by Nneka Meyers/urology. She was able to do a cystoscopy and emergency Quintero placement on 01/05/2020. Following that during her evaluation he was found to have enlarged prostate with a PSA of 35/corrected PSA 70. On 01/11/2020 underwent prostate biopsy which revealed patient has stage IIIa [id number] GG4 prostate cancer. Besides this he was also had undergone a prostate biopsy on 08/19/1969 at [place] revealing a GG4 prostate cancer involving 1 core at [facility]. Patient apparently unaware of this finding as per notes reviewed from Dr. Meyers. CT scan done on 12/27/[address] mets. On 01/11/2020 had bone scan with no bone mets. Dr. Meyers then discussed with Dr. Rebolledo who has agreed to take over his patient's care locally in [place]. Plan is to proceed with androgen deprivation. He may be a candidate for XRT in the future. Considering his stage IIIa prostate cancer with PSA 70, urethral injury and his recent poor health ( ? hospitalized with meningitis), radical Prostatectomy is not a great option for him at this time. Physical Exam Vital Signs: Temp Pulse Resp BP Pulse Ox 97.7 F 61 20 137/70 H 100 02/08/20 14:38 02/08/20 14:38 02/08/20 14:38 02/08/20 14:38 02/08/20 14:38 Intake & Output 02/07/20 02/08/20 02/09/20 06:59 06:59 06:59 Intake Total 1921 3556 0 Output Total 2500 1901 Balance -579 1655 0 Weight 95.5 kg 95.5 kg General appearance: PRESENT: no acute distress Respiratory exam: PRESENT: clear to auscultation francisca, decreased breath sounds. ABSENT: crackles Cardiovascular exam: PRESENT: +S1, +S2 GI/Abdominal exam: PRESENT: normal bowel sounds, soft. ABSENT: organomegaly, tenderness Extremities exam: ABSENT: pedal edema Neurological exam: PRESENT: alert, awake, oriented to person, oriented to place Psychiatric exam: PRESENT: appropriate affect Results Laboratory Results: 02/08/20 11:24 02/08/20 04:27 02/08/20 02/08/20 02/08/20 04:27 04:27 07:52 WBC 6.7 RBC 2.50 L Hgb 6.9 L Hct 21.0 L MCV 84 MCH 27.7 MCHC 32.9 RDW 17.0 H Plt Count 185 Seg Neutrophils % 66.9 Sodium 136.9 L Potassium 4.2 Chloride 111 H Carbon Dioxide 19 L Anion Gap 7 BUN 31 H Creatinine 1.98 H Est GFR ( Amer) 41 L Glucose 91 Calcium 8.7 Blood Type O POSITIVE Antibody Screen NEGATIVE 02/08/20 11:24 WBC 6.0 RBC 2.57 L Hgb 7.0 L Hct 21.3 L MCV 83 MCH 27.4 MCHC 33.0 RDW 17.3 H Plt Count 187 Seg Neutrophils % 68.6 Sodium Potassium Chloride Carbon Dioxide Anion Gap BUN Creatinine Est GFR ( Amer) Glucose Calcium Blood Type Antibody Screen Assessment & Plan - Diagnosis (1) Hematuria Is this a current diagnosis for this admission?: Yes Plan: Currently resolved .Hemoglobin stable. (2) Acute renal failure Is this a current diagnosis for this admission?: Yes Plan: Acute on chronic kidney disease. Patient presented with a creatinine of 3+ dropping nicely to 1.9 today and is at baseline. From a renal standpoint of view he can be discharged to follow-up with urology as outpatient. (3) Symptomatic anemia Is this a current diagnosis for this admission?: Yes Plan: From his active hematuria and patient posttransfusion. Monitor for stability. One could repeat his iron studies since he has received blood transfusions and if still low can proceed with IV iron infusion prior to discharge. (4) Diabetes Qualifiers: Diabetes mellitus type: type 2 Is this a current diagnosis for this admission?: Yes Plan: As per hospitalist. (5) 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 Is this a current diagnosis for this admission?: Yes Plan: With residual deficits including dysarthria and poor memory. (6) Hypertension Is this a current diagnosis for this admission?: Yes Plan: Controlled. Monitor. (7) Cancer of prostate Is this a current diagnosis for this admission?: Yes Plan: Stage III. Please review my notes from outside urology in the history.
--- NOTE | 2020-02-08 16:58 | PDOC TRANSFER SUMMARY ---
General Admission Date/PCP: 02/04/20 16:26 ELLI PANCHAL MD - Transfer Diagnosis (1) Hematuria Is this a current diagnosis for this admission?: Yes (2) Acute renal failure Is this a current diagnosis for this admission?: Yes (3) Cancer of prostate Is this a current diagnosis for this admission?: Yes (4) Symptomatic anemia Is this a current diagnosis for this admission?: Yes (5) CKD (chronic kidney disease) stage 3, GFR 30-59 ml/min Is this a current diagnosis for this admission?: Yes (6) 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 Is this a current diagnosis for this admission?: Yes (7) Hypertension Is this a current diagnosis for this admission?: Yes (8) Acute blood loss anemia Is this a current diagnosis for this admission?: Yes - Transfer Medications Home Medications: Amlodipine Besylate [Norvasc 10 mg Tablet] 10 mg PO Q12 02/05/20 Clonidine HCl 0.3 mg PO Q8 02/05/20 Docusate Sodium [Colace 100 mg Capsule] 100 mg PO BID 02/05/20 Ferrous Sulfate [Feosol 325 mg Tablet] 325 mg PO BID 02/05/20 Finasteride [Proscar 5 mg Tablet] 5 mg PO DAILY 02/05/20 Furosemide [Lasix 20 mg Tablet] 10 mg PO QAM 02/05/20 Glimepiride [Amaryl] 2 mg PO DAILY 02/05/20 Hydralazine HCl [Apresoline 50 mg Tablet] 100 mg PO Q8 02/05/20 Isosorbide Dinitrate [Isordil Titradose 20 Mg Tablet] 20 mg PO Q8 02/05/20 Labetalol HCl [Normodyne 200 mg Tablet] 200 mg PO Q8 02/05/20 Losartan Potassium [Cozaar 50 mg Tablet] 100 mg PO DAILY 02/05/20 Rosuvastatin Calcium [Crestor] 40 mg PO DAILY 02/05/20 Terazosin HCl 5 mg PO QHS 02/05/20 Transfer Medications: Current Medications Amlodipine Besylate (Amlodipine Besylate 10 Mg Tablet) 10 mg PO Q12 LEONORA Stop: 03/07/20 00:59 Last Admin: 02/08/20 11:44 Dose: 10 mg Documented by: Atorvastatin Calcium (Atorvastatin Calcium 80 Mg Tablet) 80 mg PO QHS LEONORA Stop: 03/07/20 21:59 Last Admin: 02/07/20 21:36 Dose: 80 mg Documented by: Clonidine (Clonidine Hcl 0.1 Mg Tablet) 0.3 mg PO Q8 LEONORA Stop: 03/07/20 05:59 Last Admin: 02/08/20 14:45 Dose: 0.3 mg Documented by: Dextrose (Dextrose 50%-Water 25 Gm/50 Ml Disp.Syrin) 12.5 gm IV PRN PRN; Protocol PRN Reason: FOR BG 50-69 IN ALERT PATIENT Stop: 03/05/20 17:57 Dextrose (Dextrose 50%-Water 25 Gm/50 Ml Disp.Syrin) 25 gm IV PRN PRN; Protocol PRN Reason: PER PROTOCOL Stop: 03/05/20 17:57 Docusate Sodium (Docusate Sodium 100 Mg Capsule) 100 mg PO BID [facility] Stop: 03/07/20 09:59 Last Admin: 02/08/20 11:44 Dose: 100 mg Documented by: Doxazosin Mesylate (Doxazosin Mesylate 2 Mg Tablet) 4 mg PO QHS [facility] Stop: 03/07/20 21:59 Last Admin: 02/07/20 21:35 Dose: 4 mg Documented by: Ferrous Sulfate (Ferrous Sulfate 325 Mg Tablet) 325 mg PO BID [facility] Stop: 03/07/20 09:59 Last Admin: 02/08/20 11:44 Dose: 325 mg Documented by: Finasteride (Finasteride 5 Mg Tablet) 5 mg PO DAILY [facility] Stop: 03/07/20 09:59 Last Admin: 02/08/20 11:41 Dose: 5 mg Documented by: Furosemide (Furosemide 20 Mg Tablet) 10 mg PO QAM LEONORA Stop: 03/07/20 07:59 Last Admin: 02/08/20 08:28 Dose: 10 mg Documented by: Glimepiride (Glimepiride 1 Mg Tablet) 2 mg PO DAILY [facility] Stop: 03/07/20 09:59 Last Admin: 02/08/20 11:43 Dose: 2 mg Documented by: Glucagon (Glucagon,Human Recomb 1 Mg Inj) 1 mg IM PRN PRN; Protocol PRN Reason: Evaluate for BG < 70 Stop: 03/05/20 17:57 Glucose (Dextrose 40% Gel 15 Gm Tube) 15 gm PO PRN PRN; Protocol PRN Reason: FOR BG 50-69 IN ALERT PATIENT Stop: 03/05/20 17:57 Glucose (Dextrose 40% Gel 15 Gm Tube) 30 gm PO PRN PRN; Protocol PRN Reason: FOR BG < 50 IN ALERT PATIENT Stop: 03/05/20 17:57 Hydralazine HCl (Hydralazine Hcl 50 Mg Tablet) 100 mg PO Q8 [facility] Stop: 03/07/20 05:59 Last Admin: 02/08/20 14:46 Dose: 100 mg Documented by: Insulin Human Lispro (Insulin Lispro 100 Unit/Ml 3 Ml Vial) 0 - 12 unit SUBCUT [facility]; Protocol Stop: 03/05/20 21:59 Last Admin: 02/08/20 16:33 Dose: Not Given Documented by: Isosorbide Dinitrate (Isosorbide Dinitrate 20 Mg Tablet) 20 mg PO Q8 [facility] Stop: 03/08/20 05:59 Last Admin: 02/08/20 14:45 Dose: 20 mg Documented by: Labetalol HCl (Labetalol Hcl 200 Mg Tablet) 200 mg PO Q8 [facility] Stop: 03/07/20 00:44 Last Admin: 02/08/20 14:45 Dose: 200 mg Documented by: Losartan Potassium (Losartan Potassium 50 Mg Tablet) 100 mg PO DAILY [facility] Stop: 03/08/20 09:59 Last Admin: 02/08/20 11:41 Dose: 100 mg Documented by: - Allergies Allergies/Adverse Reactions: No Known Allergies Allergy (Verified 02/04/20 14:31) Hospital Course Hospital Course: Per Previous Physician: "ZACHARY HALL is a 69 year old male who has history of hypertension, diabetes, chronic kidney disease and recent diagnosis of prostate cancer. Patient currently was staying at [facility] for rehabilitation. He was noted to be weak and deconditioned which has been progressive over the past few days. Apparently hemoglobin was down in the mid 5. He was transferred to the emergency room for an evaluation. Patient denies hematuria, hematemesis, melena or hematochezia. No active bleeding. Hemoglobin today is 5.4. Patient was ordered for transfusion by ER physician. His creatinine is also elevated at 3.14 which is above his baseline of 2.0. Patient follows with Dr. Skinner of nephrology. Interval history: 02/05/2020: Patient was seen and examined. His hemoglobin improved to 6.2 after 1 unit. He is getting 2 units more today. Renal function has improved slightly today." 02/06/2020 Renal function appears to approaching his baseline which is approximately 2 based on previous records. Hemoglobin with significant improvement after getting a total of 3 units PRBC. Unfortunately, he has been having hematuria for approximately 3 weeks according to the patient. He states this started after a urologic procedure. He cannot remember his urologist name or the practice that he goes to and he states his may notice information. I asked him if he is ever had a stroke and he initially said no and then stated he thinks he may have had one before. I will reach out to his tomorrow in order to get his urologist name so that I can call the practice and get some more information. I believe the patient may benefit from transfer to a facility that has urology services. We will start CBI to make sure he does not obstruct with a blood clot as he is high risk to do so given the large amount of blood seen in his urine currently. 02/07/2020 Per nursing, patient has not had any significant hematuria or clots in his urine overnight. They also deny any urinary obstruction. We will monitor the patient today and see if he has any further hematuria. Patient refused Quintero catheter and CBI overnight. We can hold off on this provided he continues to have little or no hematuria. If his urine remains clear, potentially can be discharged home tomorrow although I did present 1 caveat to the patient that he absolutely must follow-up with his urologist within 1 week of discharge and he agreed to this. His hemoglobin is lower although he has been getting IV fluids presumably for MARIZA and I have stopped this and the creatinine is normalizing. Patient has no new complaints today. 02/08/2020 Patient received 1 unit PRBC from overnight physician and soon after completing this unit of blood, patient began actively bleeding from his urethra with dank bright red blood. Per nursing, this is not mixed with urine which suggest this is a urethral bleed rather than a bladder bleed. I have called multiple hospitals and was found to get the patient transferred to a facility that has urology as I suspect the patient needs emergent cystoscopy for bleeding control. Patient follows with Dr. Rebolledo [facility]. Per nephrology note: "urologist Dr. Monty Rebolledo who he saw on 01/26. However prior to that patient was apparently admitted to [facility] on ? 01/04/20 and then underwent a traumatic Quintero catheter placement which was difficult. In the process he had a false passage in his urethra which was discovered on his transfer to [facility] in [place], where he was seen by Nneka Meyers/urology. She was able to do a cystoscopy and emergency Quintero placement on 01/05/2020. Following that during her evaluation he was found to have enlarged prostate with a PSA of 35/corrected PSA 70. On 01/11/2020 underwent prostate biopsy which revealed patient has stage IIIa [id number] GG4 prostate cancer. Besides this he was also had undergone a prostate biopsy on 08/19/1969 at [facility] revealing a GG4 prostate cancer involving 1 core at [facility]. Patient apparently unaware of this finding as per notes reviewed from Dr. Meyers. CT scan done on 12/27/[address] or mets. On 01/11/2020 had bone scan with no bone mets. Dr. Meyers then discussed with Dr. Rebolledo who has agreed to take over his patient's care locally in [place]. Plan is to proceed with androgen deprivation. He may be a candidate for XRT in the future. Considering his stage IIIa prostate cancer with PSA 70, urethral injury and his recent poor health ( ? hospitalized with meningitis), radical Prostatectomy is not a great option for him at this time." (1) Symptomatic anemia due to hematuria Per Previous Physician: "Unclear etiology. Patient had reportedly suffered from hematuria after cystoscopy that was done recently. But he has not had any bleeding since then. No evidence of GI bleeding. Continue to transfuse as needed. Monitor hemoglobin carefully. Anemia profile shows signs of iron deficiency." Due to hematuria from recent urologic procedure Requires transfer to outside hospital with urology services: Patient follows with Dr. Rebolledo at [facility] and Quintero refused by patient Trend hemoglobin Transfused 4 units PRBC total Urine cleared overnight on 02/05 followed by significant continuous bleeding from urethra on 02/07 Needs prompt follow-up outpatient with urology, discussed with patient (2) Acute renal failureresolved Per Previous Physician: "Continue IV fluids. We consulted his cash clerk. Monitor creatinine and electrolytes carefully." Baseline creatinine approximately 2 according to records Trend BMP (3) CKD (chronic kidney disease) stage 3, GFR 30-59 ml/min Renal function at baseline (4) Diabetes Per Previous Physician: "Continue to hold oral medications. Hemoglobin A1c 4.4. Monitor glucose levels." (5) Hypertension Continue home meds. Monitor blood pressure. (6) Prostate cancer Follows with urology as outpatient. (7) acute blood loss anemia Physical Exam Vital Signs: Temp Pulse Resp BP Pulse Ox 97.6 F 66 18 144/72 H 99 02/08/20 16:50 02/08/20 16:50 02/08/20 16:50 02/08/20 16:50 02/08/20 16:50 Intake & Output 02/07/20 02/08/20 02/09/20 06:59 06:59 06:59 Intake Total 1921 3556 400 Output Total 2500 1901 Balance -579 1655 400 Weight 95.5 kg 95.5 kg Exam: General appearance: PRESENT: no acute distress, well-developed, well-nourished, states his hematuria has recurred severely Head exam: PRESENT: atraumatic, normocephalic Eye exam: PRESENT: conjunctiva pink. ABSENT: scleral icterus Mouth exam: PRESENT: moist Respiratory exam: PRESENT: clear to auscultation francisca. ABSENT: rales, rhonchi, wheezes Cardiovascular exam: PRESENT: RRR. ABSENT: diastolic murmur, rubs, systolic murmur GI/Abdominal exam: PRESENT: normal bowel sounds, soft. ABSENT: distended, guarding, mass, organolmegaly, rebound, tenderness Neurological exam: PRESENT: alert, awake, oriented to person, oriented to place Psychiatric exam: PRESENT: appropriate affect, normal mood Skin exam: PRESENT: dry, intact, warm : Dank bright red blood from urethra Results Laboratory Results: 02/08/20 11:24 02/08/20 04:27 02/08/20 02/08/20 02/08/20 04:27 04:27 07:52 WBC 6.7 RBC 2.50 L Hgb 6.9 L Hct 21.0 L MCV 84 MCH 27.7 MCHC 32.9 RDW 17.0 H Plt Count 185 Seg Neutrophils % 66.9 Sodium 136.9 L Potassium 4.2 Chloride 111 H Carbon Dioxide 19 L Anion Gap 7 BUN 31 H Creatinine 1.98 H Est GFR ( Amer) 41 L Glucose 91 Calcium 8.7 Blood Type O POSITIVE Antibody Screen NEGATIVE 02/08/20 11:24 WBC 6.0 RBC 2.57 L Hgb 7.0 L Hct 21.3 L MCV 83 MCH 27.4 MCHC 33.0 RDW 17.3 H Plt Count 187 Seg Neutrophils % 68.6 Sodium Potassium Chloride Carbon Dioxide Anion Gap BUN Creatinine Est GFR ( Amer) Glucose Calcium Blood Type Antibody Screen
[2020-02-08 18:26] LABS: ABSOLUTE BASOPHILS # (AUTO) 0.1 10^3/uL (0.0-0.2); ABSOLUTE EOSINOPHILS # (AUTO) 0.2 10^3/uL (0.0-0.6); ABSOLUTE LYMPHOCYTES (AUTO) 1.3 10^3/uL (0.5-4.7); ABSOLUTE MONOCYTES (AUTO) 0.5 10^3/uL (0.1-1.4); ABSOLUTE NEUT (AUTO) 8.3 10^3/uL (1.7-8.2); BASOPHILS % (AUTO) 0.7 % (0-2); EOSINOPHILS % (AUTO) 2.1 % (0-6); HEMATOCRIT 23.5 % (37.9-51.0); LYMPHOCYTES % (AUTO) 12.4 % (13-45); MEAN CORPUSCULAR HEMOGLOBIN 27.8 pg (27.0-33.4); MEAN CORPUSCULAR HGB CONC 32.9 g/dL (32.0-36.0); MEAN CORPUSCULAR VOLUME 85 fl (80-97); MONOCYTES % (AUTO) 4.4 % (3-13); PLATELET COUNT 207 10^3/uL (150-450); RED BLOOD COUNT 2.77 10^6/uL (4.35-5.55); RED CELL DISTRIBUTION WIDTH 17.2 % (11.5-14.0); SEGMENTED NEUTROPHILS % (AUTO) 80.4 % (42-78); TOTAL CELLS COUNTED % (AUTO) 100 %; WHITE BLOOD COUNT 10.3 10^3/uL (4.0-10.5)
[2020-02-08 18:35] LABS: HEMOGLOBIN 7.7 g/dL (13.5-17.0)
[2020-02-08] MEDS: DOXAZOSIN MESYLATE 2 MG TABLET PO SCH (21:13)
[2020-02-08] MEDS: ATORVASTATIN CALCIUM 80 MG TABLET PO SCH (21:14)
[2020-02-09 01:11] LABS: HEMATOCRIT 20.4 % (37.9-51.0); MEAN CORPUSCULAR HEMOGLOBIN 28.5 pg (27.0-33.4); MEAN CORPUSCULAR HGB CONC 33.6 g/dL (32.0-36.0); MEAN CORPUSCULAR VOLUME 85 fl (80-97); PLATELET COUNT 171 10^3/uL (150-450); RED CELL DISTRIBUTION WIDTH 16.5 % (11.5-14.0); WHITE BLOOD COUNT 6.7 10^3/uL (4.0-10.5)
[2020-02-09 01:12] LABS: HEMOGLOBIN 6.8 g/dL (13.5-17.0)
--- NOTE | 2020-02-09 03:20 | Progress Note ---
Provider Note Provider Note: Mr. Fajrado is a 69-year-old M who was initially admitted for MARIZA on CKD which has resolved since but has been having hematuria requiring transfusion (4 units so far) the most recent being on 02/08/2020 morning. Per signout from daytime hospitalist, patient had an episode of bleeding during daytime again and the angie e was discussed with urologist at [facility] (Dr. Rebolledo) and the recommendation was to continue observing him for any sign of bleeding and transferring if he has any more episodes and insertion of Quintero catheter was recommended to stop the bleeding by creating tamponade effect. Around 12 AM I was notified by his nurse that Mr. [place] had another episode of hematuria (about 300 mL urine mixed with clotted blood). Attempt was made to insert Quintero but was unsuccessful and the bleeding stopped spontaneously. Patient was hemodynamically stable with his heart rate in the 60s, blood pressure 125/62. CBC was ordered. Contacted [facility] for possible transfer but urology refrigeration system installer was unreachable after multiple attempts. Discussed the case with on-call hospitalist, but he said he has urology call only for emergency procedure and stated that since the patient is hemodynamically stable, he will not be able to call urology and recommended transferring the patient in the morning. About an hour later on re-evaluation, patient was still hemodynamically stable. CBC showed hemoglobin of 6.8 which dropped from 7.7 about 8 hours earlier. Ordered transfusion of 1 unit of packed RBC with a repeat hemoglobin 2 hours after completing transfusion. And we will continue to monitor his vital signs closely.
[2020-02-09] MEDS: CLONIDINE HCL 0.1 MG TABLET PO SCH (05:26)
[2020-02-09] MEDS: ISOSORBIDE DINITRATE 20 MG TABLET PO SCH (05:27)
[2020-02-09] MEDS: HYDRALAZINE HCL 50 MG TABLET PO SCH (05:27)
[2020-02-09] MEDS: LABETALOL HCL 200 MG TABLET PO SCH (05:27)
[2020-02-09] MEDS: INSULIN LISPRO 100 UNIT/ML 3 ML VIAL SUBCUT SCH ×2 (07:33→12:24)
[2020-02-09] MEDS: FUROSEMIDE 20 MG TABLET PO SCH (07:47)
[2020-02-09 08:50] LABS: ABSOLUTE BASOPHILS # (AUTO) 0.1 10^3/uL (0.0-0.2); ABSOLUTE EOSINOPHILS # (AUTO) 0.2 10^3/uL (0.0-0.6); ABSOLUTE LYMPHOCYTES (AUTO) 1.4 10^3/uL (0.5-4.7); ABSOLUTE MONOCYTES (AUTO) 0.4 10^3/uL (0.1-1.4); ABSOLUTE NEUT (AUTO) 4.9 10^3/uL (1.7-8.2); BASOPHILS % (AUTO) 0.9 % (0-2); EOSINOPHILS % (AUTO) 2.7 % (0-6); HEMATOCRIT 22.9 % (37.9-51.0); MEAN CORPUSCULAR VOLUME 85 fl (80-97); MONOCYTES % (AUTO) 5.1 % (3-13); PLATELET COUNT 159 10^3/uL (150-450); RED BLOOD COUNT 2.69 10^6/uL (4.35-5.55); RED CELL DISTRIBUTION WIDTH 16.5 % (11.5-14.0); SEGMENTED NEUTROPHILS % (AUTO) 71.3 % (42-78); TOTAL CELLS COUNTED % (AUTO) 100 %; WHITE BLOOD COUNT 6.9 10^3/uL (4.0-10.5)
[2020-02-09 09:03] LABS: ANION GAP 10 (5-19); BLOOD UREA NITROGEN 31 mg/dL (7-20); CALCIUM 8.5 mg/dL (8.4-10.2); CARBON DIOXIDE 18 mmol/L (22-30); CHLORIDE 109 mmol/L (98-107); GLUCOSE 142 mg/dL (75-110); POTASSIUM 4.2 mmol/L (3.6-5.0)
[2020-02-09 09:11] LABS: HEMOGLOBIN 7.8 g/dL (13.5-17.0)
[2020-02-09 09:30] VITALS: BP 118/65
--- NOTE | 2020-02-09 11:04 | PDOC PROGRESS REPORT ---
Subjective Subjective:: Per Previous Physician: "ZACHARY HALL is a 69 year old male who has history of hypertension, diabetes, chronic kidney disease and recent diagnosis of prostate cancer. Patient currently was staying at [facility] for rehabilitation. He was noted to be weak and deconditioned which has been progressive over the past few days. Apparently hemoglobin was down in the mid 5. He was transferred to the emergency room for an evaluation. Patient denies hematuria, hematemesis, melena or hematochezia. No active bleeding. Hemoglobin today is 5.4. Patient was ordered for transfusion by ER physician. His creatinine is also elevated at 3.14 which is above his baseline of 2.0. Patient follows with Dr. Skinner of nephrology. Interval history: 02/05/2020: Patient was seen and examined. His hemoglobin improved to 6.2 after 1 unit. He is getting 2 units more today. Renal function has improved slightly today." 02/06/2020 Renal function appears to approaching his baseline which is approximately 2 based on previous records. Hemoglobin with significant improvement after getting a total of 3 units PRBC. Unfortunately, he has been having hematuria for approximately 3 weeks according to the patient. He states this started after a urologic procedure. He cannot remember his urologist name or the practice that he goes to and he states his may notice information. I asked him if he is ever had a stroke and he initially said no and then stated he thinks he may have had one before. I will reach out to his tomorrow in order to get his urologist name so that I can call the practice and get some more information. I believe the patient may benefit from transfer to a facility that has urology services. We will start CBI to make sure he does not obstruct with a blood clot as he is high risk to do so given the large amount of blood seen in his urine currently. 02/07/2020 Per nursing, patient has not had any significant hematuria or clots in his urine overnight. They also deny any urinary obstruction. We will monitor the patient today and see if he has any further hematuria. Patient refused Quintero catheter and CBI overnight. We can hold off on this provided he continues to have little or no hematuria. If his urine remains clear, potentially can be discharged home tomorrow although I did present 1 caveat to the patient that he absolutely must follow-up with his urologist within 1 week of discharge and he agreed to this. His hemoglobin is lower although he has been getting IV fluids presumably for MARIZA and I have stopped this and the creatinine is normalizing. Patient has no new complaints today. 02/08/2020 Patient received 1 unit PRBC from overnight physician and soon after completing this unit of blood, patient began actively bleeding from his urethra with dank bright red blood. Per nursing, this is not mixed with urine which suggest this is a urethral bleed rather than a bladder bleed. I have called multiple hospitals and was found to get the patient transferred to a facility that has urology as I suspect the patient needs emergent cystoscopy for bleeding control. Patient follows with Dr. Rebolledo at [facility]. I attempted to transfer the patient on 02/07 afternoon and the urologist on-call did not want the patient transferred until a Quintero catheter had been attempted. He stated that the patient should be transferred to their facility if a Quintero c atheter could not be placed and/or if the patient continued bleeding from his urethra. Quintero catheter was unable to be placed overnight and the patient did start bleeding profusely again requiring an additional 1 unit PRBC transfusion from my kiln tester. Pelletizer requested transfer to [facility] and spoke with Dr. Hwang who did not want the patient transferred due to the urologist being reportedly unreachable by phone or paging. I discussed the case in the morning on 02/[address] Navarrete who accepted the patient in transfer and will have urology see him when he arrives. I appreciate her help with this transfer. I fully updated the patient and his on the situation and they are in complete agreement that the patient needs to be transferred to [facility]. Per nephrology note: "urologist Dr. Monty Rebolledo who he saw on 01/26. However prior to that patient was apparently admitted to [facility] on ? 01/04/20 and then underwent a traumatic Quintero catheter placement which was difficult. In the process he had a false passage in his urethra which was discovered on his transfer to [facility] in [place], where he was seen by Nneka Meyers/urology. She was able to do a cystoscopy and emergency Quintero placement on 01/05/2020. Following that during her evaluation he was found to have enlarged prostate with a PSA of 35/corrected PSA 70. On 01/11/2020 underwent prostate biopsy which revealed patient has stage IIIa [id number] GG4 prostate cancer. Besides this he was also had undergone a prostate biopsy on 08/19/1969 at [place] revealing a GG4 prostate cancer involving 1 core at [facility]. Patient apparently unaware of this finding as per notes reviewed from Dr. Meyers. CT scan done on 12/27/[address] or mets. On 01/11/2020 had bone scan with no bone mets. Dr. Meyers then discussed with Dr. Rebolledo who has agreed to take over his patient's care locally in [place]. Plan is to proceed with androgen deprivation. He may be a candidate for XRT in the future. Considering his stage IIIa prostate cancer with PSA 70, urethral injury and his recent poor health ( ? hospitalized with meningitis), radical Prostatectomy is not a great option for him at this time." Reason For Visit: ANEMIA Physical Exam Vital Signs: Temp Pulse Resp BP Pulse Ox 97.1 F 61 17 118/65 100 02/09/20 08:18 02/09/20 07:55 02/09/20 07:55 02/09/20 07:55 02/09/20 07:55 Intake & Output 02/08/20 02/09/20 02/10/20 06:59 06:59 06:59 Intake Total 3556 2221 Output Total 1901 1625 Balance 1655 596 Weight 95.5 kg 96.4 kg Exam: eneral appearance: PRESENT: no acute distress, well-developed, well-nourished, states his hematuria came back overnight Head exam: PRESENT: atraumatic, normocephalic Eye exam: PRESENT: conjunctiva pink. ABSENT: scleral icterus Mouth exam: PRESENT: moist Respiratory exam: PRESENT: clear to auscultation francisca. ABSENT: rales, rhonchi, wheezes Cardiovascular exam: PRESENT: RRR. ABSENT: diastolic murmur, rubs, systolic murmur GI/Abdominal exam: PRESENT: normal bowel sounds, soft. ABSENT: distended, guarding, mass, organolmegaly, rebound, tenderness Neurological exam: PRESENT: alert, awake, oriented to person, oriented to place Psychiatric exam: PRESENT: appropriate affect, normal mood Skin exam: PRESENT: dry, intact, warm : Dank bright red blood from urethra Results Laboratory Results: 02/09/20 08:27 02/09/20 08:27 02/08/20 02/08/20 02/08/20 07:52 11:24 17:47 WBC 6.0 10.3 RBC 2.57 L 2.77 L Hgb 7.0 L 7.7 L Hct 21.3 L 23.5 L MCV 83 85 MCH 27.4 27.8 MCHC 33.0 32.9 RDW 17.3 H 17.2 H Plt Count 187 207 Seg Neutrophils % 68.6 80.4 H Sodium Potassium Chloride Carbon Dioxide Anion Gap BUN Creatinine Est GFR ( Amer) Glucose Calcium Blood Type O POSITIVE Antibody Screen NEGATIVE 02/09/20 02/09/20 02/09/20 00:58 08:27 08:27 WBC 6.7 6.9 RBC 2.40 L 2.69 L Hgb 6.8 L 7.8 L Hct 20.4 L 22.9 L MCV 85 85 MCH 28.5 29.0 MCHC 33.6 34.0 RDW 16.5 H 16.5 H Plt Count 171 159 Seg Neutrophils % 71.3 Sodium 136.6 L Potassium 4.2 Chloride 109 H Carbon Dioxide 18 L Anion Gap 10 BUN 31 H Creatinine 2.09 H Est GFR ( Amer) 38 L Glucose 142 H Calcium 8.5 Blood Type Antibody Screen Assessment and Plan - Diagnosis (1) Hematuria Is this a current diagnosis for this admission?: Yes (2) Acute renal failure Is this a current diagnosis for this admission?: Yes (3) Cancer of prostate Is this a current diagnosis for this admission?: Yes (4) Symptomatic anemia Is this a current diagnosis for this admission?: Yes (5) CKD (chronic kidney disease) stage 3, GFR 30-59 ml/min Qualifiers: Chronic kidney disease stage 3 subtype: stage 3b (GFR 30-44) Qualified Code(s): N18.32 - Chronic kidney disease, stage 3b Is this a current diagnosis for this admission?: Yes (6) 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 Is this a current diagnosis for this admission?: Yes (7) Hypertension Is this a current diagnosis for this admission?: Yes (8) Acute blood loss anemia Is this a current diagnosis for this admission?: Yes - Plan Summary Summary: Per Previous Physician: "ZACHARY HALL is a 69 year old male who has history of hypertension, diabetes, chronic kidney disease and recent diagnosis of prostate cancer. Patient currently was staying at [facility] for rehabilitation. He was noted to be weak and deconditioned which has been progressive over the past few days. Apparently hemoglobin was down in the mid 5. He was transferred to the emergency room for an evaluation. Patient denies hematuria, hematemesis, melena or hematochezia. No active bleeding. Hemoglobin today is 5.4. Patient was ordered for transfusion by ER physician. His creatinine is also elevated at 3.14 which is above his baseline of 2.0. Patient follows with Dr. Skinner of nephrology. Interval history: 02/05/2020: Patient was seen and examined. His hemoglobin improved to 6.2 after 1 unit. He is getting 2 units more today. Renal function has improved slightly today." 02/06/2020 Renal function appears to approaching his baseline which is approximately 2 based on previous records. Hemoglobin with significant improvement after getting a total of 3 units PRBC. Unfortunately, he has been having hematuria for approximately 3 weeks according to the patient. He states this started after a urologic procedure. He cannot remember his urologist name or the pra ctice that he goes to and he states his may notice information. I asked him if he is ever had a stroke and he initially said no and then stated he thinks he may have had one before. I will reach out to his tomorrow in order to get his urologist name so that I can call the practice and get some more information. I believe the patient may benefit from transfer to a facility that has urology services. We will start CBI to make sure he does not obstruct with a blood clot as he is high risk to do so given the large amount of blood seen in his urine currently. 02/07/2020 Per nursing, patient has not had any significant hematuria or clots in his urine overnight. They also deny any urinary obstruction. We will monitor the patient today and see if he has any further hematuria. Patient refused Quintero catheter and CBI overnight. We can hold off on this provided he continues to have little or no hematuria. If his urine remains clear, potentially can be discharged home tomorrow although I did present 1 caveat to the patient that he absolutely must follow-up with his urologist within 1 week of discharge and he agreed to this. His hemoglobin is lower although he has been getting IV fluids presumably for MARIZA and I have stopped this and the creatinine is normalizing. Patient has no new complaints today. 02/08/2020 Patient received 1 unit PRBC from overnight physician and soon after completing this unit of blood, patient began actively bleeding from his urethra with dank bright red blood. Per nursing, this is not mixed with urine which suggest this is a urethral bleed rather than a bladder bleed. I have called multiple hospitals and was found to get the patient transferred to a facility that has urology as I suspect the patient needs emergent cystoscopy for bleeding control. Patient follows with Dr. Rebolledo at [facility]. I attempted to transfer the patient on 02/07 afternoon and the urologist on-call did not want the patient transferred until a Quintero catheter had been attempted. He stated that the patient should be transferred to their facility if a Quintero catheter could not be placed and/or if the patient continued bleeding from his urethra. Quintero catheter was unable to be placed overnight and the patient did start bleeding profusely again requiring an additional 1 unit PRBC transfusion from my kiln tester. Pelletizer requested transfer to [facility] and spoke with Dr. Hwang who did not want the patient transferred due to the urologist being reportedly unreachable by phone or paging. I discussed the case in the morning on 02/[address] Navarrete who accepted the patient in transfer and will have urology see him when he arrives. I appreciate her help with this transfer. I fully updated the patient and his on the situation and they are in complete agreement that the patient needs to be transferred to [facility]. Per nephrology note: "urologist Dr. Monty Rebolledo who he saw on 01/26. However prior to that patient was apparently admitted to [facility] on ? 01/04/20 and then underwent a traumatic Quintero catheter placement which was difficult. In the process he had a false passage in his urethra which was discovered on his transfer to [facility] in [place], where he was seen by Nneka Meyers/urology. She was able to do a cystoscopy and emergency Quintero placement on 01/05/2020. Following that during her evaluation he was found to have enlarged prostate with a PSA of 35/corrected PSA 70. On 01/11/2020 underwent prostate biopsy which revealed patient has stage IIIa [id number] GG4 prostate cancer. Besides this he was also had undergone a prostate biopsy on 08/19/1969 at [place] revealing a GG4 prostate cancer involving 1 core at [facility]. Patient apparently unaware of this finding as per notes reviewed from Dr. Meyers. CT scan done on 12/27/[address] or mets. On 01/11/2020 had bone scan with no bone mets. Dr. Meyers then discussed with Dr. Rebolledo who has agreed to take over his patient's care locally in [place]. Plan is to proceed with androgen deprivation. He may be a candidate for XRT in the future. Considering his stage IIIa prostate cancer with PSA 70, urethral injury and his recent poor health ( ? hospitalized with meningitis), radical Prostatectomy is not a great option for him at this time." (1) Symptomatic anemia due to hematuria Per Previous Physician: "Unclear etiology. Patient had reportedly suffered from hematuria after cystoscopy that was done recently. But he has not had any bleeding since then. No evidence of GI bleeding. Continue to transfuse as needed. Monitor hemoglobin carefully. Anemia profile shows signs of iron deficiency." Due to hematuria from recent urologic procedure Requires transfer to outside hospital with urology services: Patient follows with Dr. Rebolledo at [facility] CBI and Quintero initially refused by patient, Quintero attempted on 02/07 overnight and was unsuccessful due to meeting anatomical resistance with placement Trend hemoglobin Transfused 5 units PRBC total Urine cleared overnight on 02/05 followed by significant continuous bleeding from urethra on 02/07 Recurrent profuse bleeding overnight 02/07, transfer refused by [facility], called [facility] hospitalist on morning of 02/08 and patient was accepted for transfer Dr. Navarrete has accepted the patient for transfer to [facility] 02/08 (2) Acute renal failureresolved Per Previous Physician: "Continue IV fluids. We consulted his sledger. Monitor creatinine and electrolytes carefully." Baseline creatinine approximately 2 according to records Trend BMP (3) CKD (chronic kidney disease) stage 3, GFR 30-59 ml/min Renal function at baseline (4) Diabetes Per Previous Physician: "Continue to hold oral medications. Hemoglobin A1c 4.4. Monitor glucose levels." (5) Hypertension Continue home meds. Monitor blood pressure. (6) Prostate cancer Follows with urology as outpatient. (7) acute blood loss anemia - Time Time Spent with patient: 35 or more minutes Medications reviewed and adjusted accordingly: Yes Anticipated Discharge Disposition: Tertiary Anticipated Discharge Timeframe: within 24 hours - Inpatient Certification Based on my medical assessment, after consideration of the patient's comorbidities, presenting symptoms, or acuity I expect that the services needed warrant INPATIENT care.: Yes I certify that my determination is in accordance with my understanding of Medicare's requirements for reasonable and necessary INPATIENT services [42 CFR 412.3e].: Yes Medical Necessity: Significant Comorbidiites Make Outpatient Treatment Too Risky, Need Close Monitoring Due to Risk of Patient Decompensation, Need for S urgery, Risk of Complication if Not Cared For in Hospital, Risk of Diagnosis Which Will Require Inpatient Eval/Care/Monitoring
[2020-02-09] MEDS: FINASTERIDE 5 MG TABLET PO SCH (11:50)
[2020-02-09] MEDS: DOCUSATE SODIUM 100 MG CAPSULE PO SCH (11:50)
[2020-02-09] MEDS: AMLODIPINE BESYLATE 10 MG TABLET PO SCH (11:50)
[2020-02-09] MEDS: GLIMEPIRIDE 1 MG TABLET PO SCH (11:51)
[2020-02-09] MEDS: FERROUS SULFATE 325 MG TABLET PO SCH (11:51)
[2020-02-09] MEDS: LOSARTAN POTASSIUM 50 MG TABLET PO SCH (11:51)
== END 2020-02-09 12:44 | disposition short-term general hospital (02) | DRG 812 ==
LOC: ER 14:19 → EH 16:26 → 4N 19:45
PROVIDERS: ADMIT Family Medicine; ATTEND Internal Medicine
PROC: 30233N1 Transfusion of Nonautologous Red Blood Cells into Peripheral Vein, Percutaneous Approach (ICD-10-PCS; principal; 2020-02-04)
DX: D62 Acute posthemorrhagic anemia (principal); N17.9 Acute kidney failure, unspecified; S37.39XA Other injury of urethra, initial encounter; N99.89 Other postprocedural complications and disorders of genitourinary system; R31.9 Hematuria, unspecified; Y65.8 Other specified misadventures during surgical and medical care; C61 Malignant neoplasm of prostate; I12.9 Hypertensive chronic kidney disease with stage 1 through stage 4 chronic kidney disease, or unspecified chronic kidney disease; N18.32 Chronic kidney disease, stage 3b; E11.22 Type 2 diabetes mellitus with diabetic chronic kidney disease; I69.322 Dysarthria following cerebral infarction; I69.311 Memory deficit following cerebral infarction; E78.5 Hyperlipidemia, unspecified; Z20.828 Contact with and (suspected) exposure to other viral communicable diseases; Z79.899 Other long term (current) drug therapy; Z79.84 Long term (current) use of oral hypoglycemic drugs; Z87.891 Personal history of nicotine dependence; Z84.1 Family history of disorders of kidney and ureter
CPT/HCPCS: 36415; 36430; 80048; 82607; 82728; 82962; 83010; 83036; 83540; 83550; 83615; 85025; 85027; 85045; 85610; 85730; 86850; 86900; 86901; 86920; 99285; 0241U; C9803; J0360; J1815; J3490; J7030; P9016